=== PATIENT | male | born 1960 | race African-American/Black ===

== ENCOUNTER 2024-11-28 15:25 | Inpatient (IN) ==
--- NOTE | 2024-11-28 15:55 | Emergency Department Note ---
Impression & Plan Mass of upper lobe of lung, Superior vena cava compression syndrome, Pneumonia ED Provider Note NAME: GEE [id number] KARMA AGE: 63 SEX: M : 1960 ARRIVES VIA: Ambulance INFORMANT: Patient, ED PROVIDER(S): Frank Matthews DO CHIEF COMPLAINT: Flank pain HPI: The patient is a 63-year-old male who has a history of hypertension presented to the emergency department for an evaluation of back pain. The patient states that he was felt to be suffering from a kidney issue. He has a history of a kidney infection in the past. The patient denies having any chest pain. He has had a cough recently. He denies having any leg pain but has noticed some leg swelling. The patient stopped taking his blood pressure medication recently. He has been taking aspirin for the pain. He denies having any fever. ROS: See above HPI for pertinent positives & negatives. A total of 10 systems reviewed and were otherwise negative. PAST MEDICAL HISTORY: See Below PAST SURGICAL HISTORY: See Below FAMILY HISTORY: See Below SOCIAL HISTORY: See Below HOME MEDICATIONS: See Below ALLERGIES: See Below VITALS: See Below PHYSICAL EXAMINATION: GENERAL: The patient is awake and alert. The patient is very anxious. EYES: The conjunctivae are clear. The pupils are round and reactive. EARS, NOSE, MOUTH AND THROAT: The nose is without any evidence of any deformity. NECK: The neck is nontender and supple. RESPIRATORY: Diminished breath sounds are noted in the right lung field. There is no tachypnea. There were scattered rhonchi noted throughout. CARDIOVASCULAR: Regular rate and rhythm noted there no murmurs rubs or gallops normal S1 normal S2. GASTROINTESTINAL: The abdomen is distended. There is no specific tenderness guarding or rigidity. BACK: Right CVA tenderness was noted to percussion. Range of motion appears intact. MUSCULOSKELETAL/EXTREMITIES: There is no evidence of gross deformity full range of motion is noted in the hips and shoulders. SKIN: There is no obvious evidence of any rash. There are no petechiae, pallor or cyanosis noted. NEUROLOGIC: Patient is awake alert and oriented x3 strength is symmetric patellar reflexes are 2+ bilaterally MEDICAL DECISION MAKING: The patient is a 63-year-old male who presented to the emergency department for an evaluation of back pain cough and difficulty breathing. The patient was very uncomfortable and appeared to be planing of severe flank pain. Initially I thought this could be secondary to a kidney stone. The patient's chest x-ray did appear to be consistent with a large upper lobe mass. It is possible that this represents a pneumonia. He stated that he one-time was positive for tuberculosis and was treated with a medication regimen over 6 months. For this reason he was placed in respiratory isolation until further laboratory and radiographic studies were obtained. The patient was treated with antihypertensives. He was treated with IV antibiotics. I discussed the patient's laboratory and radiographic studies with him. Ultimately he does appear to have a large mass in his right upper lobe. This is likely consistent with a primary lung cancer. He was also found to have signs of metastasis through the abdomen and in the flank and this is most likely why he has a back pain. I discussed his condition with the [facility]call [facility]. They have agreed to evaluate the patient in the emergency department. Triage Nursing notes reviewed. Prior medical records reviewed Vital Signs: reviewed and remarkable for elevated blood pressure and tachycardia. Differential diagnosis: Renal colic, UTI, appendicitis, diverticulitis, mesenteric ischemia, aortic pathology, infections, inflammatory bowel disease, PUD, biliary pathology, as well as other pathologies. ER treatment provided: See below Diagnostics interpreted by me: ECG: EKG was obtained in the emergency department. My interpretation is sinus tachycardia at 127 bpm. There was no PVCs noted. There is no acute ST segment abnormalities noted. Cardiac Monitoring: An order was placed for continuous cardiac monitoring. The monitor shows a rate of 124 bpm with sinus tachycardia. Laboratory studies: As stated above and show below. Imaging studies: See below. Radiographic imaging was reviewed by myself Consultation(s): I discussed this case with Dr. Shields who is on-call for the [facility]. I have personally spent greater than 45 minutes of critical care time in the direct management of this patient. This includes bedside care, interpretation of diagnostic studies, and testing, discussion with consultants, patient, and family members, and other required patient management activities. This 45 minutes is in excess of all separately billable procedures. Past Med/Surg History Problem List (Updated 11/28/24 @ 18:10 by Frank Matthews DO) Pneumonia (Acute) Superior vena cava compression syndrome (Acute) Mass of upper lobe of lung (Acute) Medical History Hypertension Social History Smoking Status: Never smoker Feels Safe at Home: Yes Allergies Allergies Allergy/AdvReac Type Severity Reaction Status Date / Time No Known Allergies Allergy Unverified 11/28/24 18:08 Home Meds Home Medications Medication Instructions Recorded Confirmed Vasotec 30 mg DAILY 11/28/24 11/28/24 atorvastatin 20 mg PO DAILY 11/28/24 11/28/24 labetalol 300 mg PO BID 11/28/24 11/28/24 Results & Data (ED) Vital Signs Vital Signs - 24 hr 11/28/24 15:40 11/28/24 15:44 11/28/24 15:54 Temperature 37 C Temperature Source Oral Pulse Rate 127 H 124 H Pulse Rate from SpO2 Sensor 123 H Respiratory Rate 22 Respiratory Effort / Characteristics Splinting (from pain) Blood Pressure 210/106 H Blood Pressure Mean 140 Pulse Oximetry 97 98 Oxygen Delivery Method Room Air Sepsis Recent Fever Within 48 Hours No Sepsis New/Unexplained Change in Mental Status No Sepsis Action Taken by Nursing No Action Required 11/28/24 16:03 11/28/24 16:27 11/28/24 16:50 Temperature Temperature Source Pulse Rate Pulse Rate from SpO2 Sensor 122 H 119 H Respiratory Rate Respiratory Effort / Characteristics Blood Pressure 163/137 H Blood Pressure Mean 149 Pulse Oximetry 96 99 Oxygen Delivery Method Sepsis Recent Fever Within 48 Hours Sepsis New/Unexplained Change in Mental Status Sepsis Action Taken by Alf Medications Current Medication List: was personally reviewed by me Laboratory Data Attestation: I reviewed the patient's lab results. 11/28/24 16:05 11/28/24 16:12 Lab Results 11/28/24 11/28/24 Range/Units 16:05 16:12 WBC 16.13 H (4.8-10.8) K/ul RBC 2.74 L (4.70-6.10) M/uL Hgb 6.3 L* (14.0-18.0) g/dl Hct 20.3 L* (42.0-52.0) % MCV 74.1 L (80.0-100.0) fL MCH 23.0 L (25.0-34.0) pg MCHC 31.0 L (32.0-36.0) g/dL RDW Std Deviation 41.6 (36.4-46.3) fL RDW Coeff of Gerardo 15.9 H (11.5-14.5) % Plt Count 514 H (130-400) K/uL MPV 8.8 L (9.4-12.4) fL Immature Gran % (Auto) 1.2 % Neut % (Auto) 77.5 % Lymph % (Auto) 6.9 % Pickett % (Auto) 9.0 % Eos % (Auto) 5.2 % Baso % (Auto) 0.2 % Neut # (Auto) 12.50 H (1.40-6.50) K/uL Lymph # (Auto) 1.11 L (1.20-3.40) K/uL Pickett # (Auto) 1.45 H (0.11-0.59) K/uL Eos # (Auto) 0.84 H (0.00-0.50) K/uL Baso # (Auto) 0.04 (0.00-0.20) K/uL Immature Gran # (Auto) 0.19 (0.01-0.20) K/uL Absolute Nucleated RBC 0.05 (0.00-0.12) K/uL Nucleated RBC % (auto) 0.3 % Polychromasia 1+ Sodium 136 (136-145) mmol/L Potassium 3.9 (3.5-5.1) mmol/L Chloride 102 (98-107) mmol/L Carbon Dioxide 24 (21-32) mmol/L Anion Gap 10 (3-11) BUN 18 (6-23) mg/dl Creatinine 1.03 (0.6-1.4) mg/dl Est Cr Clr Drug Dosing 80.3 ml/min eGFR 82.64 BUN/Creatinine Ratio 17.5 (10-20) Glucose 110 H (70-99(Fasting)) mg/dl Calcium 8.7 (8.6-10.3) mg/dl Total Bilirubin 0.9 (0.2-1.0) mg/dl AST 19 (13-39) U/L ALT 11 (7-52) U/L Alkaline Phosphatase 89 (34-104) U/L Troponin I High Sens 15.7 (0-20) pg/ml C-Reactive Protein 19.64 H (0-0.5) mg/dl Total Protein 7.6 (6.0-8.3) gm/dl Albumin 3.3 L (3.4-5.0) gm/dl Globulin 4.3 H (2.5-4.0) gm/dl Albumin/Globulin Ratio 0.8 L (0.9-2) Lipase 20 (11-82) U/L SARS-CoV-2 (PCR) NEGATIVE (Negative) Influenza Type A (PCR) Negative (Neg) Influenza Type B (PCR) Negative (Neg) RSV (RT-PCR) Negative (Neg) Administered Medications Morphine Sulfate (Morphine Sulfate 4 Mg/Ml 1 Ml Carp\Vial) 4 mg IV Q15M PRN PRN Reason: Pain Stop: 12/12/24 15:39 Last Admin: 11/28/24 18:17 Dose: 4 mg Documented By: Admin: 11/28/24 16:10 Dose: 4 mg Documented By: KARL Discontinued Medications Ceftriaxone Sodium (Rocephin) 2,000 mg in 50 mls @ 100 mls/hr IV NOW STA Stop: 11/28/24 17:24 Last Admin: 11/28/24 18:17 Dose: 100 mls/hr Documented By: MR Ioversol (Optiray 320 125ml) 119 ml IV ONCE ONE Stop: 11/28/24 17:37 Last Admin: 11/28/24 17:36 Dose: 119 ml Documented By: ANDRA Lisinopril (Lisinopril 20 Mg Tab) 20 mg PO NOW STA Stop: 11/28/24 16:56 Last Admin: 11/28/24 18:21 Dose: 20 mg Documented By: MR Ondansetron HCl (Ondansetron Inj 2 Mg/Ml 2 Ml Vial) 4 mg IV NOW STA Stop: 11/28/24 15:41 Last Admin: 11/28/24 16:10 Dose: 4 mg Documented By: KARL Imaging Data Attestation: I personally reviewed and interpreted this imaging study as follows: My Impression: 1 view chest x-ray was obtained in the emergency department. My interpretation is large right upper lobe mass/infiltrate, final report below. Radiologist's Impression: Chest X-Ray 11/28/24 15:40 EXAM: Radiograph of the Chest 1 View INDICATION: Flank pain. TECHNIQUE: Frontal view of the chest. COMPARISON: No relevant prior studies available. FINDINGS: Lungs and pleural spaces: There is masslike opacification of much of the right upper lobe and possibly also the superior segment of the right lower lobe. There is likely a trace right pleural effusion. The left lung is clear. No pneumothorax. Heart: Prominent cardiac shadow accentuated by technique. Mediastinum: Normal contour. Bones/joints: No fracture, erosion or dislocation. Soft tissues: No abnormality noted. No radiopaque foreign body noted. Upper abdomen: No abnormality noted. IMPRESSION: Considerable masslike opacification of the right upper and superior segment of the right lower lobes. Consider central obstruction. IV contrast CT chest would best assess. ACT 112: Negative or not required by law. Electronically signed by Estefania Landeros 11-28-2024 5:04 PM Abdomen/Pelvis CT 11/28/24 16:42 EXAM: CT Abdomen and Pelvis With Intravenous Contrast INDICATION: Chest mass. TECHNIQUE: Axial computed tomography images of the abdomen and pelvis with intravenous contrast. Sagittal and coronal reformatted images were created and reviewed. This CT exam was performed using one or more of the following dose reduction techniques: automated exposure control, adjustment of the mA and/or kV according to patient size, and/or use of iterative reconstruction technique. CONTRAST: 119ml of Optiray 320 was administered intravenously. COMPARISON: No relevant prior studies available. FINDINGS: Limitations: None. Lung bases: No abnormality noted. Pleural space: No visualized pleural effusion or pneumothorax. Heart: No abnormality noted. Mediastinum: No abnormality noted. ABDOMEN: Liver: No abnormality noted. Gallbladder and bile ducts: No calcified stones or surrounding fluid. Pancreas: Homogeneous enhancement. No mass, inflammation or ductal dilation. Spleen: No significant abnormality noted. Adrenals: The left adrenal gland appears normal. Kidneys and ureters: There is mild right perinephric and urothelial thickening and inflammation. No stones. No mass. Stomach and bowel: Multiple small bowel resection staple lines noted. Prominent fluid noted throughout the bowel. No obstruction or localized inflammatory change. PELVIS: Appendix: No findings to suggest acute appendicitis. Bladder: No filling defects to suggest mass or large stone. No inflammation. Reproductive: No abnormalities noted. ABDOMEN and PELVIS: Intraperitoneal space: No free air. No significant fluid collection. Bones/joints: There is a metallic foreign body along the inner surface of the right iliac bone. Soft tissues: No significant abnormality noted. Vasculature: There is a multiloculated inflamed mass in the right upper quadrant with the epicenter at the right adrenal gland. The mass measures 11.3 x 6.8 x 9.1 cm. The inferior vena cava is displaced anteriorly but does not appear occluded. There is mild atherosclerosis of the aorta and iliac arteries. No aneurysm or dissection. Lymph nodes: There is an enlarged gastrohepatic ligament node measuring 1.7 cm short axis dimension. Slightly smaller node along the greater curvature of the stomach series 6 image 98. There are multiple enlarged preaortic and precaval nodes measuring up to 1.7 cm short axis dimension. IMPRESSION: 1. Large mass centered at the right adrenal gland likely is a metastatic lesion to the adrenal gland. There is displacement of the IVC. 2. There is mild inflammation of the right kidney and collecting system. Correlate with urinalysis for associated pyelonephritis. Impression metastatic nodes about the stomach and in the retroperitoneum. ACT 112: Negative or not required by law. Electronically signed by Estefania Landeros 11-28-2024 6:05 PM Chest CTA 11/28/24 16:42 EXAM: CT Angiography Chest With Intravenous Contrast INDICATION: Cough. Question TB. TECHNIQUE: Axial computed tomographic angiography images of the chest with intravenous contrast. Sagittal and coronal reformatted images were created and reviewed. This CT exam was performed using one or more of the following dose reduction techniques: automated exposure control, adjustment of the mA and/or kV according to patient size, and/or use of iterative reconstruction technique. MIP reconstructed images were created and reviewed. CONTRAST: 119ml of Optiray 320 was administered intravenously. COMPARISON: No relevant prior studies available. FINDINGS: Pulmonary arteries: Suboptimal pulmonary Da enhancement. There is no saddle or central pulmonary embolus. Aorta: Dense coronary calcification noted. There is scattered atherosclerotic calcification in the aorta. No aneurysm or dissection. Lungs and pleural spaces: There is a large mass in the right upper lobe compressing the SVC without occluding it. The mass measures 12.4 cm AP by 10.1 cm transverse by 9.6 cm long. The mass erodes the right mainstem bronchus significantly narrowing at approximately. The mass partially encases the right main pulmonary artery. There is postobstructive consolidation in the right upper, right lower and right middle lobes. No cavitation. Trace layering right pleural effusion. No pneumothorax. Heart: No abnormality noted. No cardiomegaly. No significant pericardial effusion. No evidence of RV dysfunction. Bones/joints: Degenerative changes noted throughout the spine. No acute osseous abnormality seen. Soft tissues: No abnormality noted. Lymph nodes: Abnormal soft tissue density in the precarinal and subcarinal space likely reflects confluent nodes. There are small normal size nodes lateral to the aorta and in the subcarinal and right hilar compartments. Intraperitoneal space: Partially imaged mass in the right upper quadrant. See separately dictated CT abdomen report. IMPRESSION: 1. Large mass likely neoplastic in the right upper lobe invading the right mainstem bronchus, displacing but not occluding the SVC and partially encasing and possibly invading the right pulmonary artery. 2. Postobstructive pneumonia in the right middle and lower lobes. 3. No pulmonary embolus is identified. 4. Abnormal mass in the right upper quadrant. See separately dictated CT abdomen report. ACT 112: Negative or not required by law. Electronically signed by Estefania Landeros 11-28-2024 5:59 PM Discharge Plan Visit Data Chief Complaint: Flank Pain Stated Complaint: cough ED Provider: Frank Matthews Discharge Problem: Mass of upper lobe of lung, Superior vena cava compression syndrome, Pneumonia Patient Disposition: Being Evaluated by Hospitalist Discharge Instructions Interventions: ED Discharge Assessment Last Done: 11/28/24 18:29 Discharge Problem: Pneumonia Qualifiers: Pneumonia type: due to unspecified organism Laterality: right Lung location: u pper lobe of lung Qualified Code(s): J18.9 - Pneumonia, unspecified organism
[2024-11-28] MEDS: MoRPHine SULFATE 4 MG/ML 1 ML CARP\\VIAL IV PRN ×2 (16:10→22:11)
[2024-11-28] MEDS: ONDANSETRON INJ 2 MG/ML 2 ML VIAL IV STA (16:10)
[2024-11-28 16:43] LABS: Hematocrit (blood only) 20.3 % (42.0-52.0); Hemoglobin 6.3 g/dl (14.0-18.0); Mean Corpuscular Volume 74.1 fL (80.0-100.0); Mean Platelet Volume 8.8 fL (9.4-12.4); Nucleated RBC # (auto) 0.05 K/uL (0.00-0.12); Nucleated RBC % (auto) 0.3 %; Platelet Count 514 K/uL (130-400); RDW Coefficient of Variation 15.9 % (11.5-14.5); RDW Standard Deviation 41.6 fL (36.4-46.3); Red Blood Count 2.74 M/uL (4.70-6.10); White Blood Count 16.13 K/ul (4.8-10.8)
[2024-11-28 16:56] LABS: Albumin Globulin Ratio 0.8 (0.9-2); Albumin Level 3.3 gm/dl (3.4-5.0); BUN Creatinine Ratio 17.5 (10-20); Bilirubin,Total 0.9 mg/dl (0.2-1.0); Calcium 8.7 mg/dl (8.6-10.3); Creatinine Clr Calc Pharmacy 80.3 ml/min; Globulin 4.3 gm/dl (2.5-4.0); Potassium 3.9 mmol/L (3.5-5.1); Total Protein 7.6 gm/dl (6.0-8.3)
[2024-11-28 17:03] LABS: Troponin I High Sensitivity 15.7 pg/ml (0-20)
[2024-11-28 17:05] LABS: Influenza A virus by PCR Negative (Neg); Influenza B virus by PCR Negative (Neg); RSV by PCR Negative (Neg); SARS CoV2 RNA(COVID-19) Ceph NEGATIVE (Negative)
[2024-11-28 17:06] LABS: C Reactive Protein 19.64 mg/dl (0-0.5)
--- NOTE | 2024-11-28 17:06 | XRay Report ---
EXAM: Radiograph of the Chest 1 View INDICATION: Flank pain. TECHNIQUE: Frontal view of the chest. COMPARISON: No relevant prior studies available. FINDINGS: Lungs and pleural spaces: There is masslike opacification of much of the right upper lobe and possibly also the superior segment of the right lower lobe. There is likely a trace right pleural effusion. The left lung is clear. No pneumothorax. Heart: Prominent cardiac shadow accentuated by technique. Mediastinum: Normal contour. Bones/joints: No fracture, erosion or dislocation. Soft tissues: No abnormality noted. No radiopaque foreign body noted. Upper abdomen: No abnormality noted. IMPRESSION: Considerable masslike opacification of the right upper and superior segment of the right lower lobes. Consider central obstruction. IV contrast CT chest would best assess. ACT 112: Negative or not required by law. Electronically signed by Estefania Landeros 11-28-2024 5:04 PM
[2024-11-28 17:07] LABS: Basophils # (auto) 0.04 K/uL (0.00-0.20); Basophils % (auto) 0.2 %; Eosinophils # (auto) 0.84 K/uL (0.00-0.50); Eosinophils % (auto) 5.2 %; Immature Granulocytes # (auto) 0.19 K/uL (0.01-0.20); Immature Granulocytes % (auto) 1.2 %; Lymphocytes # (auto) 1.11 K/uL (1.20-3.40); Lymphocytes % (auto) 6.9 %; Monocytes # (auto) 1.45 K/uL (0.11-0.59); Neutrophils % (auto) 77.5 %; Polychromasia 1+
[2024-11-28] MEDS: OPTIRAY 320 125ml IV ONE (17:36)
--- NOTE | 2024-11-28 17:59 | CT Scan Report ---
EXAM: CT Angiography Chest With Intravenous Contrast INDICATION: Cough. Question TB. TECHNIQUE: Axial computed tomographic angiography images of the chest with intravenous contrast. Sagittal and coronal reformatted images were created and reviewed. This CT exam was performed using one or more of the following dose reduction techniques: automated exposure control, adjustment of the mA and/or kV according to patient size, and/or use of iterative reconstruction technique. MIP reconstructed images were created and reviewed. CONTRAST: 119ml of Optiray 320 was administered intravenously. COMPARISON: No relevant prior studies available. FINDINGS: Pulmonary arteries: Suboptimal pulmonary Da enhancement. There is no saddle or central pulmonary embolus. Aorta: Dense coronary calcification noted. There is scattered atherosclerotic calcification in the aorta. No aneurysm or dissection. Lungs and pleural spaces: There is a large mass in the right upper lobe compressing the SVC without occluding it. The mass measures 12.4 cm AP by 10.1 cm transverse by 9.6 cm long. The mass erodes the right mainstem bronchus significantly narrowing at approximately. The mass partially encases the right main pulmonary artery. There is postobstructive consolidation in the right upper, right lower and right middle lobes. No cavitation. Trace layering right pleural effusion. No pneumothorax. Heart: No abnormality noted. No cardiomegaly. No significant pericardial effusion. No evidence of RV dysfunction. Bones/joints: Degenerative changes noted throughout the spine. No acute osseous abnormality seen. Soft tissues: No abnormality noted. Lymph nodes: Abnormal soft tissue density in the precarinal and subcarinal space likely reflects confluent nodes. There are small normal size nodes lateral to the aorta and in the subcarinal and right hilar compartments. Intraperitoneal space: Partially imaged mass in the right upper quadrant. See separately dictated CT abdomen report. IMPRESSION: 1. Large mass likely neoplastic in the right upper lobe invading the right mainstem bronchus, displacing but not occluding the SVC and partially encasing and possibly invading the right pulmonary artery. 2. Postobstructive pneumonia in the right middle and lower lobes. 3. No pulmonary embolus is identified. 4. Abnormal mass in the right upper quadrant. See separately dictated CT abdomen report. ACT 112: Negative or not required by law. Electronically signed by Estefania Landeros 11-28-2024 5:59 PM
--- NOTE | 2024-11-28 18:05 | CT Scan Report ---
EXAM: CT Abdomen and Pelvis With Intravenous Contrast INDICATION: Chest mass. TECHNIQUE: Axial computed tomography images of the abdomen and pelvis with intravenous contrast. Sagittal and coronal reformatted images were created and reviewed. This CT exam was performed using one or more of the following dose reduction techniques: automated exposure control, adjustment of the mA and/or kV according to patient size, and/or use of iterative reconstruction technique. CONTRAST: 119ml of Optiray 320 was administered intravenously. COMPARISON: No relevant prior studies available. FINDINGS: Limitations: None. Lung bases: No abnormality noted. Pleural space: No visualized pleural effusion or pneumothorax. Heart: No abnormality noted. Mediastinum: No abnormality noted. ABDOMEN: Liver: No abnormality noted. Gallbladder and bile ducts: No calcified stones or surrounding fluid. Pancreas: Homogeneous enhancement. No mass, inflammation or ductal dilation. Spleen: No significant abnormality noted. Adrenals: The left adrenal gland appears normal. Kidneys and ureters: There is mild right perinephric and urothelial thickening and inflammation. No stones. No mass. Stomach and bowel: Multiple small bowel resection staple lines noted. Prominent fluid noted throughout the bowel. No obstruction or localized inflammatory change. PELVIS: Appendix: No findings to suggest acute appendicitis. Bladder: No filling defects to suggest mass or large stone. No inflammation. Reproductive: No abnormalities noted. ABDOMEN and PELVIS: Intraperitoneal space: No free air. No significant fluid collection. Bones/joints: There is a metallic foreign body along the inner surface of the right iliac bone. Soft tissues: No significant abnormality noted. Vasculature: There is a multiloculated inflamed mass in the right upper quadrant with the epicenter at the right adrenal gland. The mass measures 11.3 x 6.8 x 9.1 cm. The inferior vena cava is displaced anteriorly but does not appear occluded. There is mild atherosclerosis of the aorta and iliac arteries. No aneurysm or dissection. Lymph nodes: There is an enlarged gastrohepatic ligament node measuring 1.7 cm short axis dimension. Slightly smaller node along the greater curvature of the stomach series 6 image 98. There are multiple enlarged preaortic and precaval nodes measuring up to 1.7 cm short axis dimension. IMPRESSION: 1. Large mass centered at the right adrenal gland likely is a metastatic lesion to the adrenal gland. There is displacement of the IVC. 2. There is mild inflammation of the right kidney and collecting system. Correlate with urinalysis for associated pyelonephritis. Impression metastatic nodes about the stomach and in the retroperitoneum. ACT 112: Negative or not required by law. Electronically signed by Estefania Landeros 11-28-2024 6:05 PM
[2024-11-28] MEDS ORDERED: hydrALAZINE HCL 20 MG/ML VIAL IV PRN ×2 (18:17→18:28)
[2024-11-28] MEDS: cefTRIAXone SODIUM 2,000 MG/50 ML BAG IV STA (18:17)
[2024-11-28] MEDS: lisinopril 20 MG TAB PO STA (18:21)
[2024-11-28] MEDS ORDERED: SODIUM CHLORIDE 0.9% 100 ML IV PRN (18:28)
[2024-11-28] MEDS ORDERED: SODIUM CHLORIDE 0.9% 50 ML IV PRN (18:28)
[2024-11-28 18:54] LABS: Appearance Urine Clear (Clear); Bacteria Urine Automated None Seen (None Seen); Bilirubin Urine Negative (Negative); Blood Urine Negative (Negative); Cast Urine Automated 0-2 /lpf (0-2); Color Urine Yellow; Epithelial Cell Urine Auto 0-2 /hpf (0-2); Glucose Urine UA Negative (Negative); Ketones Urine Negative (Negative); Leukocyte Esterase Urine Negative (Negative); Nitrite Urine Negative (Negative); Protein Urine 1+ (Negative); RBC Urine Automated 0-2 /hpf (0-2); Specific Gravity Urine 1.028 (1.000-1.030); Urobilinogen Urine Negative (Negative); WBC Urine Automated 0-5 /hpf (0-5); pH Urine 6.5 (4.5-7.5)
[2024-11-28 19:24] LABS: Ferritin 561.4 ng/ml (8-388)
[2024-11-28 19:30] LABS: Folate (Folic Acid),Ser orPlas 19.94 ng/ml (>5.38)
--- NOTE | 2024-11-28 19:40 | History & Physical Report ---
Date of Service November 28, 2024 Assessment & Plan (1) Mass of upper lobe of lung: (2) Pneumonia: (3) Anemia: Plan: 63-year-old male presents with history of hypertension, dyslipidemia, HCV, tuberculosis, presenting with hemoptysis. For the past week. 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 Large mass likely neoplastic in the right upper lobe invading the right mainstem bronchus, displacing but not occluding the SVC and partially encasing and possibly invading the right pulmonary artery. 2. Postobstructive pneumonia in the right middle and lower lobes. 3. No pulmonary embolus is identified. 4. Abnormal mass in the right upper quadrant. See separately dictated CT abdomen report. CT abdomen/pelvis: IMPRESSION: 1. Large mass centered at the right adrenal gland likely is a metastatic lesion to the adrenal gland. There is displacement of the IVC. 2. There is mild inflammation of the right kidney and collecting system. Correlate with urinalysis for associated pyelonephritis. Impression metastatic nodes about the stomach and in the retroperitoneum. Hemoglobin 6.3 1 unit packed RBCs ordered Anemia panel Cefepime IV Sputum culture sputum AFB Airborne isolation Pulmonary service consulted Hypertension Uncontrolled Hydralazine IV as needed Continue usual Vasotec and labetalol Other chronic medical problems HCV Dyslipidemia DVT prophylaxis-SCDs Full code Inmate of correctional facility Admission and Anticipated Discharge Date Admission Date: November 28, 2024 History of Present Illness Chief Complaint: Hemoptysis Primary Care Provider: JAMES Sam 63-year-old male presents with history of hypertension, dyslipidemia, HCV, tuberculosis, presenting with hemoptysis. For the past week. History obtained from patient and also nurse from [facility]. Patient has been having primary history of hemoptysis as well as cough, right upper back and right lower back pain. Denies fevers or chills, chest pain, shortness of breath. He also reports a weakness and feeling tired. At the ER, patient blood pressure was in the systolic 200s Heart rate 120s CT chest showing a significant right upper lobe mass with postobstructive pneumonia CT abdomen pelvis showing large mass centered in the right adrenal gland likely metastatic lesion. Mild inflammation of the right kidney. On exam patient seen sitting up in bed, comfortable, not in distress. Denies headache, chest pain, shortness of breath Allergies Allergy/AdvReac Type Severity Reaction Status Date / Time No Known Allergies Allergy Unverified 11/28/24 18:08 Home Medications Medication Instructions Recorded Confirmed Type Vasotec 30 mg DAILY 11/28/24 11/28/24 History atorvastatin 20 mg PO DAILY 11/28/24 11/28/24 History labetalol 300 mg PO BID 11/28/24 11/28/24 History Past Med/Surg History Problem List (Updated 11/28/24 @ 19:35 by Farshad Shields MD) Anemia Pneumonia (Acute) Superior vena cava compression syndrome (Acute) Mass of upper lobe of lung (Acute) Medical History Hypertension Social History Smoking Status: Never smoker Feels Safe at Home: Yes Review of Systems Review of Systems: all noted and negative except for above Physical Exam Physical Exam: General- oriented x 3, not in distress, speaks in sentences with no effort or accessory muscle use Head- atraumatic Eyes- PERRL, EOMI, anicteric ENT- oropharynx clear Neck- supple, no JVD, no adenopathy, no thyromegaly; carotids +2/2, no bruits appreciated Lungs- Decreased breath sounds right lung lynn, scattered mild wheeze bilaterally Heart- normal rate, regular rhythm; no murmur, no gallop, no rub appreciated Abdomen- normal bowel sounds, nondistended, soft, nontender, no masses or hepatosplenomegaly Extremities- no pretibial edema, no calf tenderness; peripheral pulses intact Neuro- alert, oriented x 3; CN 2-12 grossly intact; motor 5/5 bilaterally;sensation 100% on all extremities; no other gross focal neurologic deficits Skin- warm & dry Results & Data Results & Data Vital Signs (Past 12 Hours) Vital Signs Temp Pulse Resp BP Pulse Ox O2 Del Method 11/28/24 18:29 Room Air 11/28/24 18:14 98 Room Air 11/28/24 16:50 163/137 H 11/28/24 16:27 99 11/28/24 16:03 96 11/28/24 15:54 98 11/28/24 15:44 124 H 11/28/24 15:40 37 C 127 H 22 210/106 H 97 Room Air all noted and reviewed including below Code Status & VTE Plan VTE Prophylaxis Plan VTE Prophylaxis will be ordered: Yes (2) Pneumonia Laterality: right Lung location: upper lobe of lung Pneumonia type: due to unspecified organism Qualified Code(s): J18.9 - Pneumonia, unspecified organism
[2024-11-28] MEDS: LABETALOL HCL 300 MG TAB PO SCH (20:23)
[2024-11-28] MEDS: CEFEPIME 2000MG 2,000 MG/20 ML SYR IV SCH (20:26)
[2024-11-28] MEDS: diphenhydrAMINE Capsule 25 MG CAP PO ONE (20:57)
[2024-11-28] MEDS: ACETAMINOPHEN 325 MG TAB PO ONE (20:57)
[2024-11-28] MEDS: ACETAMINOPHEN 325 MG TAB ONE (22:11)
[2024-11-28] MEDS: oxyCODONE HCL IR 5 MG TAB (IMMEDIATE RELEASE) PO PRN (23:00)
[2024-11-28 23:03] LABS: Hematocrit (blood only) 23.4 % (42.0-52.0); Hemoglobin 7.3 g/dl (14.0-18.0)
[2024-11-28] MEDS: ACETAMINOPHEN 325 MG TAB PO STA (23:06)
--- NOTE | 2024-11-28 23:54 | Communication Note ---
Date of Service: November 28, 2024 Patient persistently febrile despite Tylenol Rx well BT ongoing. AP Persistent fever Sepsis secondary to postobstructive pneumonia Possible transfusion reaction Add doxycycline to cefepime Hold BT Transfusion protocol now
[2024-11-29] MEDS: DOXYCYCLINE HYCLATE 100 MG in DEXTROSE 5% MINI-B 100 ML IV SCH (00:11)
[2024-11-29] MEDS: KETOROLAC TROMETHAMINE 15 MG/ML VIAL IV ONE (01:21)
[2024-11-29 01:28] LABS: Adenovirus PCR Not Detected (NotDetected); Bordetella parapertussis PCR Not Detected (NotDetected); Bordetella pertussis PCR Not Detected (NotDetected); Chlamydia pneumoniae PCR Not Detected (NotDetected); Coronavirus 229E PCR Not Detected (NotDetected); Coronavirus CoV-2 (COVID19)PCR Not Detected (NotDetected); Coronavirus HKU1 PCR Not Detected (NotDetected); Coronavirus NL63 PCR Not Detected (NotDetected); Coronavirus OC43PCR Not Detected (NotDetected); Human Metapneumovirus PCR Not Detected (NotDetected); Influenza A PCR Not Detected (NotDetected); Influenza B PCR Not Detected (NotDetected); Mycoplasma pneumoniae PCR Not Detected (NotDetected); Parainfluenza Virus 1 PCR Not Detected (NotDetected); Parainfluenza Virus 2 PCR Not Detected (NotDetected); Parainfluenza Virus 3 PCR Not Detected (NotDetected); Parainfluenza Virus 4 PCR Not Detected (NotDetected); Respiratory Syncytial VirusPCR Not Detected (NotDetected); Rhinovirus/Enterovirus PCR Not Detected (NotDetected)
[2024-11-29] MEDS ORDERED: LORazepam 0.5 MG TAB PO PRN (02:09)
[2024-11-29] MEDS: hydrOXYzine HCl 25 MG TAB PO STA (02:28)
[2024-11-29] MEDS: NSS + 20MEQ KCL 20 MEQ/1,000 ML BAG IV ONE (02:28)
[2024-11-29 04:03] LABS: Blood Urine Negative (Negative); RBC Urine Automated 0-2 /hpf (0-2)
[2024-11-29] MEDS: MAGNESIUM SULFATE / D5W 1 GM/100 ML BAG IV ONE (04:25)
[2024-11-29 07:16] LABS: Hypochromasia Present; Microcytosis Present
[2024-11-29] MEDS: oxyCODONE HCL IR 5 MG TAB (IMMEDIATE RELEASE) PO PRN (07:45)
[2024-11-29] MEDS: ATORVASTATIN 20 MG TAB PO SCH (07:47)
[2024-11-29] MEDS: ENALAPRIL MALEATE 10 MG TAB PO SCH (07:48)
--- NOTE | 2024-11-29 07:54 | Hospitalist Progress Note ---
Date of Service November 29, 2024 Assessment & Plan (1) Mass of upper lobe of lung: (2) Pneumonia: (3) Anemia: Plan: Patient is a 63 yr male presents with history of hypertension, dyslipidemia, HCV, tuberculosis, presenting with hemoptysis. For the past week. Right upper lobe mass with right main endobronchial lesion Likely metastatic disease to Adrenals Superior vena cava compression syndrome secondary to above Postobstructive pneumonia H/O tobacco use, family history of cancer (Mother--breast Cancer) H/O Tuberculosis--completed treatment per patient Presents with ongoing cough, hemoptysis, weight loss --S/P flexible fiberoptic bronchoscopy with bronchial wash, transbronchial biopsies, endobronchial biopsies, FNA and EBUS on 11/29/24 --Nasal MRSA negative --Procalcitonin 0.2 --BioFire negative --CT chest: Large mass likely neoplastic in the right upper lobe invading the right mainstem bronchus, displacing but not occluding the SVC and partially encasing and possibly invading the right pulmonary artery. Postobstructive pneumonia in the right middle and lower lobes. No pulmonary embolus is identified. Abnormal mass in the right upper quadrant. See separately dictated CT abdomen report. --CT ABD/Pelvis:Large mass centered at the right adrenal gland likely is a metastatic lesion to the adrenal gland. There is displacement of the IVC. There is mild inflammation of the right kidney and collecting system. Correlate with urinalysis for associated pyelonephritis. Impression metastatic nodes about the stomach and in the retroperitoneum. --MRI Brain:pending -- Bronchial culture pending -- Blood cultures pending --Sputum for AFB pending --QuantiFERON-TB gold pending --Continue airborne precautions until tuberculosis ruled out --Continue cefepime, doxycycline --Continue IV fluids --Appreciate pulmonology input: Recommends oncology and MRI brain -- Oncology consulted Anemia of chronic disease Iron deficiency anemia Reviewed iron panel: Low iron, transferrin levels. Ferritin likely elevated due to malignancy/infection Normal B12, folate levels Fecal occult pending --S/P 1 unit PRBC -- Also received IV Venofer Monitor H&H and transfuse as needed Avoid anticoagulation due to hemoptysis Hypertension Uncontrolled likely situational Continue home labetalol, enalapril IV hydralazine as needed Monitor blood pressure Other chronic medical problems: HCV Dyslipidemia--currently on statin DVT Px: SCDs Re: Anemia, hemoptysis CODE STATUS Full code Disposition Inmate of correctional facility Admission and Anticipated Discharge Date Admission Date: November 28, 2024 Subjective Patient is seen and examined at bedside States having intermittent cough associated with occasional hemoptysis Currently denies any significant dyspnea Admits to have weight loss of about 8 pounds in 1 month Denies any chest pain, nausea, vomiting, abdominal pain Detention guards at bedside Review of Systems Review of Systems: All systems reviewed & are unremarkable except as noted in Subjective Physical Exam Physical Exam: Physical Exam: Vitals signs as noted above General Appearance:Moderately built and nourished, no apparent distress Head: normocephalic, Atraumatic Eyes: normal inspection, EOMI Neck: supple, Trachea midline Respiratory/Chest: Diminished breath sounds,minimal basal crackles, No accessory muscle use Cardiovascular: S1, S2, No murmur Abdomen/GI:Soft, Non tender, Bowel sounds present Extremities/Musculoskeletal:normal inspection, 1+edema Neurologic/Psych:AAOX3, grossly no focal neurological deficits Skin: normal color, warm Results & Data Results & Data Vital Signs (Past 12 Hours) Vital Signs Temp Pulse Pulse Resp BP BP Pulse Ox 11/29/24 07:00 36.4 C L 96 H 20 128/73 97 11/29/24 02:15 36.7 C 87 18 118/79 95 11/29/24 00:15 38.3 C H 109 H 20 149/79 H 95 11/28/24 23:45 39 C H 11/28/24 23:00 11/28/24 23:00 39 C H 11/28/24 22:45 36.4 C L 125 H 24 168/89 H 93 11/28/24 22:36 38.4 C H 11/28/24 22:13 124 H 11/28/24 22:02 38 C H 127 H 22 166/87 H 98 11/28/24 21:45 38.0 C H 127 H 22 166/87 H 98 11/28/24 21:15 37.2 C 124 H 18 162/107 H 94 11/28/24 21:00 37.5 C 125 H 22 191/116 H 95 11/28/24 20:46 37.5 C 124 H 20 162/98 H 96 11/28/24 20:41 37.5 C 124 H 20 142/89 H 96 11/28/24 20:30 125 H 22 184/136 H 100 O2 Del Method 11/29/24 07:00 Room Air 11/29/24 02:15 Room Air 11/29/24 00:15 Room Air 11/28/24 23:45 11/28/24 23:00 Room Air 11/28/24 23:00 11/28/24 22:45 11/28/24 22:36 11/28/24 22:13 11/28/24 22:02 11/28/24 21:45 11/28/24 21:15 11/28/24 21:00 11/28/24 20:46 Room Air 11/28/24 20:41 11/28/24 20:30 Room Air Laboratory Results Short CBC 11/28/24 11/28/24 11/29/24 Range/Units 16:05 22:21 07:43 WBC 16.13 H 14.02 H (4.8-10.8) K/ul Hgb 6.3 L* 7.3 L 7.1 L (14.0-18.0) g/dl Hct 20.3 L* 23.4 L 23.3 L (42.0-52.0) % Plt Count 514 H 494 H (130-400) K/uL BMP 11/28/24 11/29/24 16:12 07:43 Sodium 136 135 L Potassium 3.9 3.8 Chloride 102 101 Carbon Dioxide 24 24 BUN 18 30 H Creatinine 1.03 1.14 Glucose 110 H 109 H Calcium 8.7 8.6 Liver Function 11/28/24 Range/Units 16:12 Total Bilirubin 0.9 (0.2-1.0) mg/dl AST 19 (13-39) U/L ALT 11 (7-52) U/L Alkaline Phosphatase 89 (34-104) U/L Albumin 3.3 L (3.4-5.0) gm/dl Urine 11/28/24 Range/Units 18:18 Urine Color Yellow Urine Appearance Clear (Clear) Urine pH 6.5 (4.5-7.5) Ur Specific [place] 1.028 (1.000-1.030) Urine Protein 1+ H (Negative) Urine Glucose (UA) Negative (Negative) (2) Pneumonia Laterality: right Lung location: upper lobe of lung Pneumonia type: due to unspecified organism Qualified Code(s): J18.9 - Pneumonia, unspecified organism
--- NOTE | 2024-11-29 08:18 | Pulmonary Consultation ---
Date of Consultation November 29, 2024 Assessment & Plan (1) Mass of upper lobe of lung: (2) Anemia: (3) Superior vena cava compression syndrome: Plan CT chest 11/28/2024 personally reviewed: Mass in the right upper lobe 12.4 cm x 10.1 cm x 9.6 cm Endobronchial lesion appreciated in the RBI Groundglass opacities surrounding the mass likely lymphangitic spread Significant mediastinal lymphadenopathy at station 4R and station 7 -- Pulmonary mass right upper lobe 12.4 cm x 10.1 cm x 9.6 cm Likely malignant Given the endobronchial lesion possibility of squamous cell carcinoma is high Respiratory BioFire negative for everything on 11/28/2024 Nasal MRSA negative Procalcitonin 0.2 Patient does have right-sided suprarenal mass but it seems to be cystic, I discussed the case with IR and they are not confident that they will get a good yield Bronchoscopy with EBUS will be pursued --Postobstructive pneumonia Febrile Continue with antibiotics --Hemoptysis Likely secondary to above Antitussive medication [id number] --History of tuberculosis S/p treatment for 6 months Plan: Keep the patient n.p.o. Plan would be bronchoscopy with EBUS in the OR Hold anticoagulation Platelets, AST/ALT as well as albumin within normal limit I doubt patient has active tuberculosis, I think we are dealing with lung cancer here. Okay to continue with airborne for the time being. Risk and benefit of the procedure explained to the patient in depth. Patient understands and wants to go ahead with the procedures Consent signed, witnessed and put in the chart Please note the above document was generated using voice recognition software. It may contain grammatical, syntax or spelling errors.Any formal questions or concerns about the content, text or information contained within the body of this dictation should be directly addressed to the provider for clarification. History of Present Illness Attending Physician: Onofre Corral MD History of Present Illness 63-year-old male admitted to hospital for hemoptysis Past medical history: Hypertension, dyslipidemia, hepatitis C, history of tuberculosis s/p treatment for 6 months Pulmonary consulted for lung mass and hemoptysis Assisted guards where in the room at the time of examination At the time of examination patient was not in any respiratory distress His saturation was 96-97% on room air, respiration was in the mid teens, systolic blood pressure in the 120s Patient has been complaining of coughing up blood in the last couple of days. He has lost approximately 8-10 pounds in the last month or 2 Does complain of pleuritic chest pain on the right side. Denies any nausea vomiting Appetite is poor. No headache or blurry vision No dysuria or diarrhea Please make note patient is a poor historian Social history: Approximately [id number] smoking history. 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 Denied any illicit drug use No history of lung cancer in the family Allergies Allergy/AdvReac Type Severity Reaction Status Date / Time No Known Allergies Allergy Unverified 11/28/24 18:08 Home Medications Medication Instructions Recorded Confirmed Type Vasotec 30 mg DAILY 11/28/24 11/28/24 History atorvastatin 20 mg PO DAILY 11/28/24 11/28/24 History labetalol 300 mg PO BID 11/28/24 11/28/24 History Patient History Medical History Hypertension Social History Smoking Status: Current every day smoker Tobacco Type: Cigarettes Hx Alcohol Use: No Hx Substance Use: No Preferred Language: Setswana Communication Ability: Effective [employer] Required: No Beliefs That Will Affect Care: None Current Living Situation: Other Current Living Situation Comment: Correctional Facility Other Information That Helps Us Care for You: No Feels Safe at Home: Yes Safety Concerns: Feels Safe At This Time Review of Systems 2 Review of Systems: All systems reviewed & are unremarkable except as noted in HPI & below Physical Exam 2 Physical Exam: Constitutional: No acute distress HEENT: EOMI, PERRLA Respiratory system: Decreased air entry mild bilaterally, more decreased on the right side, no wheeze, rhonchi, mild crackles bilateral lower lobes CVS: S1-S2 positive, no murmurs or gallops Abdomen: Soft, nontender, nondistended, positive bowel sounds x4 Extremities: +2 pulses bilaterally radialis/ dorsalis pedis, no cyanosis, +2 pitting edema bilateral lower extremity Neuro: Awake alert oriented x3 Psych: Normal mood and affect G/U: No Alberto Skin: no rashes, warm and dry Lymphatic: no cervical or axillary lymphadenopathy Results & Data Results & Data Vital Signs (Past 12 Hours) Vital Signs Temp Pulse Pulse Resp BP BP Pulse Ox 11/29/24 07:00 36.4 C L 96 H 20 128/73 97 11/29/24 02:15 36.7 C 87 18 118/79 95 11/29/24 00:15 38.3 C H 109 H 20 149/79 H 95 11/28/24 23:45 39 C H 11/28/24 23:00 11/28/24 23:00 39 C H 11/28/24 22:45 36.4 C L 125 H 24 168/89 H 93 11/28/24 22:36 38.4 C H 11/28/24 22:13 124 H 11/28/24 22:02 38 C H 127 H 22 166/87 H 98 11/28/24 21:45 38.0 C H 127 H 22 166/87 H 98 11/28/24 21:15 37.2 C 124 H 18 162/107 H 94 11/28/24 21:00 37.5 C 125 H 22 191/116 H 95 11/28/24 20:46 37.5 C 124 H 20 162/98 H 96 11/28/24 20:41 37.5 C 124 H 20 142/89 H 96 11/28/24 20:30 125 H 22 184/136 H 100 O2 Del Method 11/29/24 07:00 Room Air 11/29/24 02:15 Room Air 11/29/24 00:15 Room Air 11/28/24 23:45 11/28/24 23:00 Room Air 11/28/24 23:00 11/28/24 22:45 11/28/24 22:36 11/28/24 22:13 11/28/24 22:02 11/28/24 21:45 11/28/24 21:15 11/28/24 21:00 11/28/24 20:46 Room Air 11/28/24 20:41 11/28/24 20:30 Room Air Laboratory Results 11/29/24 07:43 11/29/24 07:43 PG Care Time/CCT Total # of Minutes Spent Total Time Spent with Patient: Total time spent is greater than 50% in coordination of care (as documented) at patient's floor/unit and/or counseling patient: Coding Level of Care Code 72014 INT INP/OBS CARE 3/75MIN Diagnoses Mass of upper lobe of lung R91.8 Anemia D64.9 Superior vena cava compression syndrome I87.1
[2024-11-29 08:21] LABS: Basophils # (auto) 0.04 K/uL (0.00-0.20); Basophils % (auto) 0.3 %; Eosinophils # (auto) 0.47 K/uL (0.00-0.50); Eosinophils % (auto) 3.4 %; Hematocrit (blood only) 23.3 % (42.0-52.0); Hemoglobin 7.1 g/dl (14.0-18.0); Immature Granulocytes # (auto) 0.16 K/uL (0.01-0.20); Immature Granulocytes % (auto) 1.1 %; Lymphocytes # (auto) 1.39 K/uL (1.20-3.40); Lymphocytes % (auto) 9.9 %; Mean Corpuscular Hemoglobin 23.4 pg (25.0-34.0); Mean Corpuscular Hgb Conc 30.5 g/dL (32.0-36.0); Mean Corpuscular Volume 76.6 fL (80.0-100.0); Mean Platelet Volume 8.7 fL (9.4-12.4); Monocytes # (auto) 1.66 K/uL (0.11-0.59); Monocytes % (auto) 11.8 %; Neutrophils % (auto) 73.5 %; Nucleated RBC # (auto) 0.04 K/uL (0.00-0.12); Nucleated RBC % (auto) 0.3 %; Platelet Count 494 K/uL (130-400); RDW Coefficient of Variation 16.2 % (11.5-14.5); RDW Standard Deviation 44.2 fL (36.4-46.3); Red Blood Count 3.04 M/uL (4.70-6.10); White Blood Count 14.02 K/ul (4.8-10.8)
[2024-11-29 08:37] LABS: BUN Creatinine Ratio 26.3 (10-20); Calcium 8.6 mg/dl (8.6-10.3); Creatinine Clr Calc Pharmacy 72.6 ml/min; Magnesium 2.1 mg/dl (1.7-2.4); Potassium 3.8 mmol/L (3.5-5.1)
[2024-11-29 08:39] LABS: Anisocytosis Present; Hypochromasia Present; Polychromasia 2+
[2024-11-29 08:52] LABS: Thyroid Stimulating Hormone 4.343 uIu/ml (0.300-4.500)
[2024-11-29] MEDS ORDERED: MIDAZOLAM HCL 1 MG/ML 2ML VIAL ONE (08:54)
[2024-11-29] MEDS ORDERED: fentaNYL citrate PF 100 MCG/2 ML VIAL ONE (08:54)
[2024-11-29] MEDS ORDERED: PROPOFOL IV EMULSION 10 MG/ML 20 ML VIAL IV ONE (08:54)
[2024-11-29] MEDS ORDERED: ROCURONIUM BROMIDE 10 MG/ML 5 ML VIAL IV ONE (08:54)
[2024-11-29] MEDS ORDERED: LIDOCAINE 2% 2 ML VIAL/AMP(20MG/ML) INFIL ONE (08:54)
[2024-11-29] MEDS ORDERED: INFLUENZA VACC TS2024-25(6m+)/PF (IIV3) 0.5mL Syr IM ONE (09:00)
[2024-11-29] MEDS ORDERED: ONDANSETRON INJ 2 MG/ML 2 ML VIAL ONE (09:03)
[2024-11-29] MEDS ORDERED: DEXAMETHASONE SOD INJ 4 MG/ML VIAL ONE (09:03)
--- NOTE | 2024-11-29 09:16 | Electrocardiogram Report ---
Test Reason : Blood Pressure : */* mmHG Vent. Rate : 127 BPM Atrial Rate : 127 BPM P-R Int : 148 ms QRS Dur : 72 ms QT Int : 318 ms P-R-T Axes : 77 63 77 degrees QTcB Int : 462 ms Sinus tachycardia Possible Left atrial enlargement Rightward axis Borderline ECG No previous ECGs available Confirmed by Beatriz Degroot (Jeffry) on 11/29/2024 9:16:45 AM Referred By: [facility] Confirmed By: Beatriz Degroot
--- NOTE | 2024-11-29 09:24 | Anesthesiology Consultation ---
Date of Service November 29, 2024 Assessment & Plan Chart Review Chart Review: Acceptable Risk for Surgery and Patient NOT seen in Pre Admission Testing Consults Requested none ASA ASA3 Proposed Anesthesia Anesthesia Type: General Risk / Benefits Reviewed With: PT / POA / Parent / Guardian, Accepts Plan and Informed Consent Obtained Additional Comments: s/p 1 u pRBC, Hb 7.1. Patient reports right sided flank pain that takes his breath away. Has not coughed up any clots since yesterday. NPO appropriate. History Surgery Operation Date: 11/29/24 07:00 Proposed Procedures p Bronchoscopy - Ta López MD, [facility] s Endobronchial Ultrasound - Ta López MD, [facility] Height/Weight Height: 5 ft 8 in Weight: 85.9 kg Allergies Allergy/AdvReac Type Severity Reaction Status Date / Time No Known Allergies Allergy Unverified 11/28/24 18:08 Medications Home Medications Medication Instructions Recorded Confirmed Last Taken Vasotec 30 mg DAILY 11/28/24 11/28/24 Unknown atorvastatin 20 mg PO DAILY 11/28/24 11/28/24 Unknown labetalol 300 mg PO BID 11/28/24 11/28/24 Unknown Active Medications Generic Name Dose Route Start Last Admin Trade Name Freq PRN Reason Stop Dose Admin Atorvastatin Calcium 20 mg 11/29/24 09:00 11/29/24 07:47 Atorvastatin 20 Mg Tab PO 12/29/24 08:59 20 mg DAILY YOLA Administration Enalapril Maleate 30 mg 11/29/24 09:00 11/29/24 07:48 Enalapril Maleate 10 Mg Tab PO 12/29/24 08:59 30 mg DAILY YOLA Administration Cefepime HCl 2,000 mg in 20 mls @ 5 mls/min 11/28/24 20:00 11/29/24 04:24 Maxipime 2000mg IV 12/03/24 19:59 5 mls/min Q8H YOLA Administration Protocol Doxycycline Hyclate 100 mg/ 100 mls @ 50 mls/hr 11/29/24 00:00 11/29/24 02:28 Dextrose IV 12/04/24 00:00 Infused Q12H YOLA Infusion Potassium Chloride/Sodium Chloride 20 meq in 1,000 mls @ 60 mls/hr 11/29/24 02:09 11/29/24 02:28 Normal Saline W/20 Meq Kcl IV 11/29/24 18:48 60 mls/hr .[id number] Administration Labetalol HCl 300 mg 11/28/24 21:00 11/29/24 07:47 Labetalol Hcl 300 Mg Tab PO 12/28/24 20:59 300 mg BID YOLA Administration Morphine Sulfate 3 mg 11/28/24 18:28 11/29/24 02:41 Morphine Sulfate 4 Mg/Ml 1 Ml Carp\Vial IV 12/12/24 18:27 3 mg Q4H PRN Administration severe pain Oxycodone HCl 5 - 10 mg 11/29/24 00:53 11/29/24 07:45 Oxycodone Hcl Ir 5 Mg Tab (Immediate Release) PO 12/13/24 00:52 10 mg QID PRN Administration Pain Past Medical History Medical History Hypertension Exercise / Class Metabolic Activity II 4-5 Yardwork/Stairs/Walk up hill Past Anesthesia History No Hx of Anesthesia Complications and No Family Hx of Anesthesia Complications History of PONV No Hx of PONV and No Hx of Motion Sickness Social History Smoking Status: Current every day smoker Hx Alcohol Use: No Hx Substance Use: No Review of Systems ROS Unobtainable: All systems reviewed & are unremarkable except as noted in HPI & below Physical Exam Vital Signs Last Vital Signs Temp 37.4 C 11/29/24 09:33 Pulse 91 H 11/29/24 09:33 Resp 20 11/29/24 09:33 BP 128/73 11/29/24 07:00 Pulse Ox 95 11/29/24 09:33 O2 Del Method Room Air 11/29/24 09:33 ENMT Mouth: + poor dentition (multiple missing teeth); no TMJ abnormality Thyromental Distance: > or= 3.5 Finger Breadths Mallampati Class: II Neck normal visual inspection and trachea midline; neck extension not limited Respiratory normal respiratory effort Auscultation: lungs clear to auscultation bilaterally Cardiovascular Rate/Rhythm: regular rate and regular rhythm Heart Sounds: no murmur Musculoskeletal Spine: normal cervical ROM Extremities: full ROM of extremities Neurologic moves all extremities Psychiatric Orientation: alert and oriented x 3 Testing Laboratory Results 11/29/24 07:43 11/29/24 07:43 Urine Color Yellow 11/28/24 18:18 Urine Appearance Clear (Clear) 11/28/24 18:18 Urine pH 6.5 (4.5-7.5) 11/28/24 18:18 Ur Specific [place] 1.028 (1.000-1.030) 11/28/24 18:18 Urine Protein 1+ (Negative) H 11/28/24 18:18 Urine Glucose (UA) Negative (Negative) 11/28/24 18:18 Urine Ketones Negative (Negative) 11/28/24 18:18 Urine Nitrite Negative (Negative) 11/28/24 18:18 Ur Leukocyte Esterase Negative (Negative) 11/28/24 18:18 Urine WBC (Auto) 0-5 /hpf (0-5) 11/28/24 18:18 Urine RBC (Auto) 0-2 /hpf (0-2) 11/29/24 01:25 U Hyaline Cast (Auto) 0-2 /lpf (0-2) 11/28/24 18:18 U Epithel Cells (Auto) 0-2 /hpf (0-2) 11/28/24 18:18 Urine Bacteria (Auto) None Seen (None Seen) 11/28/24 18:18 Blood Type A Positive 11/28/24 17:55 Antibody Screen NEGATIVE 11/28/24 17:55 Electrocardiogram Date: 11/28/24 Sinus tachycardia Possible Left atrial enlargement Rightward axis Borderline ECG No previous ECGs available Confirmed by Beatriz Degroot ([id number]) on 11/29/2024 9:16:45 AM
[2024-11-29] MEDS ORDERED: ePHEDrine sulfate 50 MG/ML AMP IV PRN (09:45)
[2024-11-29] MEDS ORDERED: ATROPINE SULFATE 0.1 MG/ML 10ML SYR IV PRN (09:45)
[2024-11-29] MEDS ORDERED: ONDANSETRON INJ 2 MG/ML 2 ML VIAL IV PRN (09:45)
[2024-11-29] MEDS ORDERED: fentaNYL citrate PF 100 MCG/2 ML VIAL IV PRN (09:45)
[2024-11-29] MEDS ORDERED: Nursing to Pharmacy Communication SCH (09:45)
[2024-11-29 10:21] LABS: INR 1.3 (0.9-1.1); Partial Thromboplastin Ratio 1.3; Partial Thromboplastin Time 35 Seconds (21-31)
[2024-11-29] MEDS ORDERED: PHENYLEPHRINE 100MCG/ML 5ML SYR ONE (10:36)
[2024-11-29] MEDS ORDERED: SUGAMMADEX SODIUM 200 MG/2 ML VIAL IV ONE (10:37)
--- NOTE | 2024-11-29 10:59 | Procedure Note ---
Procedure Note: Bronchoscopy Procedure PREOPERATIVE DIAGNOSIS: Right upper lobe mass with hemoptysis POSTOPERATIVE DIAGNOSIS: Right upper lobe mass with right main endobronchial lesion, preliminary diagnosis malignancy PROCEDURE PERFORMED: Flexible fiberoptic bronchoscopy with bronchial wash, transbronchial biopsies, endobronchial biopsies, FNA and EBUS COMPLICATIONS: None. INDICATION: Rule out malignancy PROCEDURE: After obtaining an informed consent, the patient was brought to the OR the patient had appropriate oxygen, blood pressure, heart rate, and respiratory rate monitoring applied and monitored continuously throughout the procedure. Sedation was managed by anesthesia, please refer to their notes Flexible bronchoscope was advanced through the ETT. There was blood clots appreciated around the ET tube as well as in the polly posterior to the ET tube which was suctioned out. The trachea appeared normal.The bronchoscope was then advanced through the polly, which was widened. There was a large fungating mass appreciated coming from left upper lobe into the right main bronchus. It was obstructing the right main greater than 90%. I was able to advance the scope through the mass, the right middle lobe and the right lower lobe had some bloody secretion which was suctioned out. The fungating mass was going into the right upper lobe, I was not able to advance my scope into the right upper lobe. The mass was oozing bright red blood. The bronchoscope was subsequently withdrawn and advanced into the left mainstem. Again, each segment and subsegment was well visualized. No specific masses or other lesions were identified throughout the tracheobronchial tree on the left. There was minimal amount of bloody secretion likely coming from the right side which was suctioned out. The bronchoscope was then re-advanced into the right upper lobe fungating mass and multiple FNAs were made along with endobronchial biopsies. Preliminary diagnosis with malignancy Minimal hemorrhage was identified and suctioned clear without difficulty. Cold saline was utilized to achive adequate hemostasis. The bronchoscope was then wedged in the right main just proximal to the mass and bronchoalveolar lavage samples were obtained. 80 ml of saline was instilled and 40 ml of fluid was aspirated back.The bronchoscope was withdrawn and the area was suctioned clear. Flexible bronchoscope was withdrawn and EBUS was introduced Station 4R, station 7 as well as station 4L were visualized Station 4R: 4 passes, adequate, malignant cells visualized The bronchoscope was then withdrawn to the mainstem. The area was suctioned clear. The bronchoscope was then withdrawn. The patient tolerated the procedure well without evidence of desaturation or complications. Bronchoalveolar lavage samples were sent for cell count, Gram stain and bacterial culture, AFB culture and smear, fungal culture and smear and cytology. FNA and endobronchial biopsies were sent forpathology. Recommendations: Follow-up micro, cytology and pathology Follow-up chest x-ray Please note the above document was generated using voice recognition software. It may contain grammatical, syntax or spelling errors.Any formal questions or concerns about the content, text or information contained within the body of this dictation should be directly addressed to the provider for clarification. [facility] [place] Codes (Charges) Pulmonary/Thoracic Procedure 1: Pulmonary and Thoracic: 03882 Bronchoscopy, w/EBUS 1 or 2 mediastinal Procedure 2: Pulmonary and Thoracic: 07227 Dx bronchoscopy/wash Procedure 3: Pulmonary and Thoracic: 89375 Bronchoscopy w/ needle bx Procedure 4: Pulmonary and Thoracic: 00724 Bronchoscopy w bronchial or endobronchial bx
--- NOTE | 2024-11-29 11:40 | Anesthesiology Progress Note ---
Date of Service November 29, 2024 Anesthesia Post Procedure Vital Signs Vital Signs: Temp Pulse Pulse Pulse Resp BP BP 11/29/24 11:34 36.4 C L 84 82 14 109/59 L 11/29/24 11:25 84 15 112/61 11/29/24 11:15 80 15 103/58 L 11/29/24 11:08 36.4 C L 80 17 123/72 11/29/24 09:33 37.4 C 91 H 20 11/29/24 08:00 11/29/24 07:00 36.4 C L 96 H 20 128/73 11/29/24 02:15 36.7 C 87 18 118/79 11/29/24 00:15 38.3 C H 109 H 20 149/79 H 11/28/24 23:45 39 C H 11/28/24 23:00 11/28/24 23:00 39 C H 11/28/24 22:45 36.4 C L 125 H 24 168/89 H 11/28/24 22:36 38.4 C H 11/28/24 22:13 124 H 11/28/24 22:02 38 C H 127 H 22 166/87 H 11/28/24 21:45 38.0 C H 127 H 22 166/87 H 11/28/24 21:15 37.2 C 124 H 18 162/107 H 11/28/24 21:00 37.5 C 125 H 22 191/116 H 11/28/24 20:46 37.5 C 124 H 20 162/98 H 11/28/24 20:41 37.5 C 124 H 20 142/89 H 11/28/24 20:30 125 H 22 184/136 H 11/28/24 18:29 11/28/24 18:14 11/28/24 16:50 163/137 H 11/28/24 16:27 11/28/24 16:03 11/28/24 15:54 11/28/24 15:44 124 H 11/28/24 15:40 37 C 127 H 22 210/106 H Pulse Ox O2 Del Method O2 Flow Rate 11/29/24 11:34 98 Nasal Cannula 4 11/29/24 11:25 97 Oxymask 5 11/29/24 11:15 100 Oxymask 5 11/29/24 11:08 99 Oxymask 5 11/29/24 09:33 95 Room Air 11/29/24 08:00 Room Air 11/29/24 07:00 97 Room Air 11/29/24 02:15 95 Room Air 11/29/24 00:15 95 Room Air 11/28/24 23:45 11/28/24 23:00 Room Air 11/28/24 23:00 11/28/24 22:45 93 11/28/24 22:36 11/28/24 22:13 11/28/24 22:02 98 11/28/24 21:45 98 11/28/24 21:15 94 11/28/24 21:00 95 11/28/24 20:46 96 Room Air 11/28/24 20:41 96 11/28/24 20:30 100 Room Air 11/28/24 18:29 Room Air 11/28/24 18:14 98 Room Air 11/28/24 16:50 11/28/24 16:27 99 11/28/24 16:03 96 11/28/24 15:54 98 11/28/24 15:44 11/28/24 15:40 97 Room Air Pain Intensity Right Flank: Pain Intensity: 6 Transfer of Care Handoff Completed per policy Notes Mental Status: alert / awake / arousable Patient Amnestic to Procedure: Yes Nausea / Vomiting: adequately controlled Pain: adequately controlled Airway Patency, RR, SpO2: stable & adequate BP & HR: stable & adequate Hydration State: stable & adequate Anesthetic Complications: no major complications apparent and Pt Satisfied with anesthetic care
--- NOTE | 2024-11-29 11:43 | XRay Report ---
XR chest 1V portable CLINICAL HISTORY: Post Bronchoscopy TECHNIQUE: Single frontal radiograph of the chest was obtained. Comparison: Comparison is made to chest radiograph 11/28/2024 FINDINGS: No lines and tubes are seen. The cardiomediastinal silhouette is normal. Right upper lung airspace op acity is increased from prior exam. No evidence of pleural effusion or pneumothorax. IMPRESSION: Increasing airspace opacity in right upper lung likely represents postbiopsy change. No evidence of p neumothorax. ACT 112: Negative or not required by law. Electronically signed by: Alphonso Diego M.D. 11/29/2024 11:41 AM
[2024-11-29] MEDS: LR 15ML/HR IV SCH (12:19)
[2024-11-29] MEDS: IRON SUCROSE 300 MG in SODIUM CHLORIDE 0.9% 250 ML IV ONE (12:26)
--- NOTE | 2024-11-29 13:49 | Oncology Consultation ---
Date of Consultation November 29, 2024 Assessment & Plan (1) Mass of upper lobe of lung: (2) Superior vena cava compression syndrome: Plan Gentleman who presented with respiratory symptoms with imaging suggestive of lung cancer with metastasis. He is s/p bronchoscopy/EBUS with biopsy with pathology pending -Await pathology results from bronchoscopy/EBUS with biopsy. Pathology will determine treatment options. If he is found to have small cell lung cancer, would need inpatient chemotherapy in the setting of SVC syndrome. If he does not have small cell lung cancer, may have to consider palliative radiation therapy followed by chemoimmunotherapy treatment. -If pathology confirms lung cancer, will need brain MRI for full staging Thank you for this consult. Will follow pathology results and see patient when available. Please feel free to call if you have any other questions History of Present Illness Attending Physician: Onofre Corral MD History of Present Illness 63-year-old gentleman with medical history significant for hypertension, dyslipidemia, hepatitis C and history of tuberculosis who presented with hemoptysis, weight loss, back and chest pain. Labs obtained in ER significant for leukocytosis with white cell count of 16.13, anemia with hemoglobin of 7.3, hematocrit 23.4, MCV 74.1 and platelet count of 514,000. CTA chest revealed large mass likely neoplastic in the right upper lobe invading the right mainstem bronchus, displacing but not occluding the SVC and partially encasing and possibly invading the right pulmonary artery, abnormal mass in the right upper abdominal quadrant. CT abdomen and pelvis revealed large mass centered in the right adrenal gland likely metastatic lesion to the adrenal gland with displace ment of the IVC, metastatic nodes around the stomach and in the retroperitoneum. He underwent bronchoscopy/EBUS with biopsy today with results pending Allergies Allergy/AdvReac Type Severity Reaction Status Date / Time No Known Allergies Allergy Unverified 11/28/24 18:08 Home Medications Medication Instructions Recorded Confirmed Type Vasotec 30 mg DAILY 11/28/24 11/28/24 History atorvastatin 20 mg PO DAILY 11/28/24 11/28/24 History labetalol 300 mg PO BID 11/28/24 11/28/24 History Patient History Medical History Hypertension Social History Smoking Status: Current every day smoker Tobacco Type: Cigarettes Hx Alcohol Use: No Hx Substance Use: No Preferred Language: Cymro Communication Ability: Unable Genetic Counsellor Required: No Beliefs That Will Affect Care: None Current Living Situation: Other Current Living Situation Comment: [facility] Other Information That Helps Us Care for You: No Feels Safe at Home: Yes Safety Concerns: Feels Safe At This Time Assistive Devices: None Results & Data Vital Signs (Past 12 Hours) Vital Signs Temp Pulse Pulse Pulse Resp BP Pulse Ox 11/29/24 12:58 86 20 119/70 99 11/29/24 12:36 88 18 122/71 99 11/29/24 11:45 81 14 123/72 98 11/29/24 11:35 36.4 C L 84 14 109/59 L 98 11/29/24 11:25 84 15 112/61 97 11/29/24 11:15 80 15 103/58 L 100 11/29/24 11:08 36.4 C L 80 17 123/72 99 11/29/24 09:33 37.4 C 91 H 20 95 11/29/24 08:00 11/29/24 07:00 36.4 C L 96 H 20 128/73 97 11/29/24 05:50 88 11/29/24 02:15 36.7 C 87 18 118/79 95 O2 Del Method O2 Flow Rate 11/29/24 12:58 Oxymask 2 11/29/24 12:36 Oxymask 5 11/29/24 11:45 Oxymask 4 11/29/24 11:35 Nasal Cannula 4 11/29/24 11:25 Oxymask 5 11/29/24 11:15 Oxymask 5 11/29/24 11:08 Oxymask 5 11/29/24 09:33 Room Air 11/29/24 08:00 Room Air 11/29/24 07:00 Room Air 11/29/24 05:50 11/29/24 02:15 Room Air
[2024-11-29 21:09] LABS: Hematocrit (blood only) 19.5 % (42.0-52.0)
[2024-11-29] MEDS ORDERED: SODIUM CHLORIDE 0.9% 100 ML IV PRN (21:25)
[2024-11-29] MEDS ORDERED: SODIUM CHLORIDE 0.9% 50 ML IV PRN (21:25)
[2024-11-29] MEDS: ACETAMINOPHEN 325 MG TAB PO STA (21:40)
[2024-11-29] MEDS: diphenhydrAMINE Capsule 25 MG CAP PO ONE (21:55)
[2024-11-30 06:37] LABS: Hematocrit (blood only) 22.5 % (42.0-52.0); Hemoglobin 7.1 g/dl (14.0-18.0); Mean Corpuscular Hemoglobin 24.3 pg (25.0-34.0); Mean Corpuscular Hgb Conc 31.6 g/dL (32.0-36.0); Mean Corpuscular Volume 77.1 fL (80.0-100.0); Mean Platelet Volume 8.7 fL (9.4-12.4); Nucleated RBC # (auto) 0.07 K/uL (0.00-0.12); Nucleated RBC % (auto) 0.4 %; Platelet Count 415 K/uL (130-400); RDW Coefficient of Variation 16.4 % (11.5-14.5); RDW Standard Deviation 45.7 fL (36.4-46.3); Red Blood Count 2.92 M/uL (4.70-6.10); White Blood Count 17.71 K/ul (4.8-10.8)
[2024-11-30 06:58] LABS: BUN Creatinine Ratio 30.6 (10-20); Calcium 8.4 mg/dl (8.6-10.3); Creatinine Clr Calc Pharmacy 75.6 ml/min; Magnesium 2.2 mg/dl (1.7-2.4); Potassium 4.4 mmol/L (3.5-5.1)
--- NOTE | 2024-11-30 07:38 | XRay Report ---
EXAM: XR chest 1V portable CLINICAL HISTORY: F/U KAB BME TECHNIQUE: Chest x ray performed in frontal projection. COMPARISON: 11/28/2024. FINDINGS: Right upper lobe extensive opacity extending to the perihilar and paramediastinal region as seen on prior CT chest and x-ray examination, likely representing neoplastic etiology. Haziness in the right lower lung zone. Left lung is clear. Bilateral costophrenic angles appear unremarkable. Heart size is within normal limits. The bony thoracic cage is intact. IMPRESSION: 1. Right upper lobe extensive opacity extending to the perihilar and paramediastinal region as seen on prior CT chest and x-ray examination, likely representing neoplastic etiology. 2. Slight interval increase in the haziness in the right lower lung zone, possible superimposed infection. Clinical correlation and follow-up are recommended. Electronically signed by Myron Shah 11-30-2024 07:37 AM
--- NOTE | 2024-11-30 08:45 | Pulmonology Progress Note ---
Date of Service November 30, 2024 Assessment & Plan (1) Mass of upper lobe of lung: (2) Anemia: (3) Superior vena cava compression syndrome: Plan CT chest 11/28/2024 personally reviewed: Mass in the right upper lobe 12.4 cm x 10.1 cm x 9.6 cm Endobronchial lesion appreciated in the RBI Groundglass opacities surrounding the mass likely lymphangitic spread Significant mediastinal lymphadenopathy at station 4R and station 7 -- Pulmonary mass with compression of the SVC right upper lobe 12.4 cm x 10.1 cm x 9.6 cm Likely malignant Given the endobronchial lesion possibility of squamous cell carcinoma is high Respiratory BioFire negative for everything on 11/28/2024 Nasal MRSA negative Procalcitonin 0.2 Patient does have right-sided suprarenal mass but it seems to be cystic, I discussed the case with IR and they are not confident that they will get a good yield Bronchoscopy with EBUS will be pursued S/p EBUS 11/29/2024: Large fungating mass in the right main oozing blood, primary diagnosis patient's malignancy, encounter for squamous --Postobstructive pneumonia Febrile Continue with antibiotics --Hemoptysis Secondary to fungating mass which is oozing blood Antitussive medication [id number] --History of tuberculosis S/p treatment for 6 months Plan: Chest x-ray from today does not show any significant change compared to the time of presentation Right lower lobe opacities likely from bronchoscopy Supportive care for anemia which is most likely from hemoptysis from the fungating mass Antitussive [id number] MRI of the brain to rule out mets The probability of patient having tuberculosis is low, if the smear from the [facility] wash is negative then I think it is reasonable to take him off airborne precaution Pulmonary will continue to follow Please note the above document was generated using voice recognition software. It may contain grammatical, syntax or spelling errors.Any formal questions or concerns about the content, text or information contained within the body of this dictation should be directly addressed to the provider for clarification. Admission and Anticipated Discharge Date Admission Date: November 28, 2024 Subjective Patient seen and examined at bedside. No acute distress, no adverse events overnight He was saturating 98% on 2 L nasal cannula, I took the oxygen off. He stated that he is feeling better. His hemoptysis has gone down in intensity and frequency Still complaining of chest pain and back pain on and off No unusual headache or blurry vision Has been afebrile Review of Systems 2 Review of Systems: All systems reviewed & are unremarkable except as noted in Subjective Physical Exam 2 Physical Exam: Constitutional: No acute distress HEENT: EOMI, PERRLA Respiratory system: Decreased air entry mild bilaterally, more decreased on the right side, no wheeze, no rhonchi, positive crackles right lower lobe CVS: S1-S2 positive, no murmurs or gallops Abdomen: Soft, nontender, nondistended, positive bowel sounds x4 Extremities: +2 pulses bilaterally radialis/ dorsalis pedis, no cyanosis, +2 pitting edema bilateral lower extremity Neuro: Awake alert oriented x3 Psych: Normal mood and affect G/U: No Alberto Skin: no rashes, warm and dry Lymphatic: no cervical or axillary lymphadenopathy Results & Data Results & Data Vital Signs (Past 12 Hours) Vital Signs Temp Pulse Resp BP Pulse Ox O2 Del Method O2 Flow Rate 11/30/24 01:35 36.7 C 76 18 123/73 98 2 11/30/24 01:22 36.6 C 77 16 118/69 98 2 11/30/24 01:21 36.6 C 77 16 119/69 99 2 11/30/24 00:22 36.6 C 81 18 128/74 100 2 11/29/24 23:22 36.8 C 86 18 118/69 98 2 11/29/24 22:52 36.8 C 87 16 118/69 97 2 11/29/24 22:37 37.0 C 84 16 118/71 98 2 11/29/24 22:18 36.8 C 87 18 122/72 98 2 11/29/24 21:00 Nasal Cannula 2 Laboratory Results 11/30/24 06:15 11/30/24 06:15 PG Care Time/CCT Total # of Minutes Spent Total Time Spent with Patient: Total time spent is greater than 50% in coordination of care (as documented) at patient's floor/unit and/or counseling patient: Coding Level of Care Code 59491 SUB INP/OBS CARE 3/50MIN Diagnoses Mass of upper lobe of lung R91.8 Anemia D64.9 Superior vena cava compression syndrome I87.1
[2024-11-30] MEDS: IRON SUCROSE 300 MG in SODIUM CHLORIDE 0.9% 250 ML IV ONE (10:04)
[2024-11-30 11:37] LABS: Quantiferon Mitogen-NIL 6.47 IU/mL; Quantiferon NIL 0.87 IU/mL; Quantiferon TB Gold Plus NEGATIVE (NEGATIVE); Quantiferon TB1-NIL 0.13 IU/mL; Quantiferon TB2-NIL 0.06 IU/mL
--- NOTE | 2024-11-30 15:10 | Hospitalist Progress Note ---
Date of Service November 30, 2024 Assessment & Plan (1) Mass of upper lobe of lung: (2) Pneumonia: (3) Anemia: Plan: Patient is a 63 yr male presents with history of hypertension, dyslipidemia, HCV, tuberculosis, presenting with hemoptysis. For the past week. Right upper lobe mass with right main endobronchial lesion Likely metastatic disease to Adrenals Superior vena cava compression syndrome secondary to above Postobstructive pneumonia H/O tobacco use, family history of cancer (Mother--breast Cancer) H/O Tuberculosis--completed treatment per patient Presents with ongoing cough, hemoptysis, weight loss --S/P flexible fiberoptic bronchoscopy with bronchial wash, transbronchial biopsies, endobronchial biopsies, FNA and EBUS on 11/29/24 --Nasal MRSA negative --Procalcitonin 0.2 --BioFire negative --CT chest: Large mass likely neoplastic in the right upper lobe invading the right mainstem bronchus, displacing but not occluding the SVC and partially encasing and possibly invading the right pulmonary artery. Postobstructive pneumonia in the right middle and lower lobes. No pulmonary embolus is identified. Abnormal mass in the right upper quadrant. See separately dictated CT abdomen report. --CT ABD/Pelvis:Large mass centered at the right adrenal gland likely is a metastatic lesion to the adrenal gland. There is displacement of the IVC. There is mild inflammation of the right kidney and collecting system. Correlate with urinalysis for associated pyelonephritis. Impression metastatic nodes about the stomach and in the retroperitoneum. --MRI Brain:pending -- Bronchial culture pending -- Blood cultures: No growth to date --Sputum for AFB pending --QuantiFERON-TB gold pending --Continue airborne precautions until tuberculosis ruled out --Continue cefepime, doxycycline -- Received IV fluids --Appreciate pulmonology input: Recommends oncology and MRI brain -- Appreciate oncology input: Recommends inpatient chemotherapy Vs palliative care based on path results Supplemental oxygen as needed Chest x-ray fairly unchanged from yesterday Anemia of chronic disease Iron deficiency anemia Reviewed iron panel: Low iron, transferrin levels. Ferritin likely elevated due to malignancy/infection Normal B12, folate levels Fecal occult pending --S/P 1 unit PRBC -- Also received IV Venofer Monitor H&H and transfuse as needed Avoid anticoagulation due to hemoptysis Will give additional Venofer today Hypertension Uncontrolled likely situational Continue home labetalol, enalapril IV hydralazine as needed Monitor blood pressure Other chronic medical problems: HCV Dyslipidemia--currently on statin DVT Px: SCDs Re: Anemia, hemoptysis CODE STATUS Full code Disposition Inmate of correctional facility Admission and Anticipated Discharge Date Admission Date: November 28, 2024 Subjective Patient is seen and examined at bedside Still has cough with intermittent hemoptysis No other complaints today Denies any dyspnea Saturating well on 2 L supplemental oxygen Denies any chest pain, nausea, vomiting, abdominal pain Longterm guards at bedside Review of Systems Review of Systems: All systems reviewed & are unremarkable except as noted in Subjective Physical Exam Physical Exam: Physical Exam: Vitals signs as noted above General Appearance:Moderately built and nourished, no apparent distress Head: normocephalic, Atraumatic Eyes: normal inspection, EOMI Neck: supple, Trachea midline Respiratory/Chest: Diminished breath sounds,minimal basal crackles, No accessory muscle use Cardiovascular: S1, S2, No murmur Abdomen/GI:Soft, Non tender, Bowel sounds present Extremities/Musculoskeletal:normal inspection, 1+edema Neurologic/Psych:AAOX3, grossly no focal neurological deficits Skin: normal color, warm Results & Data Results & Data Vital Signs (Past 12 Hours) Vital Signs Pulse O2 Del Method O2 Flow Rate 11/30/24 14:45 78 11/30/24 09:00 80 11/30/24 09:00 Nasal Cannula 2 Laboratory Results Short CBC 11/29/24 11/30/24 Range/Units 20:28 06:15 WBC 17.71 H (4.8-10.8) K/ul Hgb 6.0 L* 7.1 L (14.0-18.0) g/dl Hct 19.5 L* 22.5 L (42.0-52.0) % Plt Count 415 H (130-400) K/uL BMP 11/30/24 06:15 Sodium 134 L Potassium 4.4 Chloride 104 Carbon Dioxide 23 BUN 33 H Creatinine 1.08 Glucose 139 H Calcium 8.4 L (2) Pneumonia Laterality: right Lung location: upper lobe of lung Pneumonia type: due to unspecified organism Qualified Code(s): J18.9 - Pneumonia, unspecified organism
[2024-11-30 20:50] LABS: Hematocrit (blood only) 24.5 % (42.0-52.0); Hemoglobin 7.6 g/dl (14.0-18.0)
[2024-11-30] MEDS: DOXYCYCLINE HYCLATE 100 MG CAP PO SCH (21:11)
[2024-12-01 06:16] LABS: Hematocrit (blood only) 23.9 % (42.0-52.0); Hemoglobin 7.6 g/dl (14.0-18.0); Mean Corpuscular Hemoglobin 24.6 pg (25.0-34.0); Mean Corpuscular Hgb Conc 31.8 g/dL (32.0-36.0); Mean Corpuscular Volume 77.3 fL (80.0-100.0); Mean Platelet Volume 8.9 fL (9.4-12.4); Nucleated RBC # (auto) 0.21 K/uL (0.00-0.12); Platelet Count 448 K/uL (130-400); RDW Coefficient of Variation 17.2 % (11.5-14.5); RDW Standard Deviation 47.1 fL (36.4-46.3); Red Blood Count 3.09 M/uL (4.70-6.10)
[2024-12-01 06:42] LABS: BUN Creatinine Ratio 31.3 (10-20); Calcium 8.6 mg/dl (8.6-10.3); Potassium 4.7 mmol/L (3.5-5.1)
--- NOTE | 2024-12-01 08:28 | Hospitalist Progress Note ---
Date of Service December 01, 2024 Assessment & Plan (1) Mass of upper lobe of lung: Plan: Case was communicated with filament coil winder, given the patient has an element of postobstructive atelectasis or pneumonia, the impression is that the bulk of the finding on the CT is mass. MRI of the brain is pending to complete the workup, oncology is on board, as I understand patient is planned to start chemotherapy soon. He also has metastatic appearing right adrenal mass. Clinically he is a stable, saturating well on room air. At this time, it seems that patient is waiting for his a sputum culture to come back negative for TB prior to be excepted at MRI department. (2) Pneumonia: Plan: Patient is afebrile with ongoing/worsening leukocytosis but clinically he appears well with no significant respiratory complaints although he says that he had some chest discomfort upon deep inspiration, CT of the chest was reviewed during this admission. Continue with empirical cefepime and doxycycline. (3) Anemia: Plan: Hemoglobin is around 7.5, this is probably as a result of inflammatory anemia or paraneoplastic secondary to underlying malignancy. Will transfuse as needed. Due to anemia being hypochromic microcytic, patient was given iron infusion, I do not see any iron studies so we will order one to base to treatment. (4) Hyperlipidemia: Plan: Continue with home dose of Lipitor 20 mg daily. (5) Hypertension, essential: Plan: Blood pressure is controlled, continue with labetalol 300 mg twice daily and enalapril 30 mg daily. Plan At this time awaiting plan by oncology to see if they are interested in starting chemotherapy while patient is here, continue with empirical antibiotic, MRI of the brain is needed however prior to that MRI department is waiting for his sputum culture to come back negative for TB even though his QuantiFERON gold plus came back negative. Will follow along with pulmonary and oncology. Follow-up with the result of iron studies to calculate total iron body deficit and replace. Admission and Anticipated Discharge Date Admission Date: November 28, 2024 Subjective Patient is a 63-year-old inmate with history of hypertension, dyslipidemia, hepatitis C, treated tuberculosis who initially presented with hemoptysis, patient on imaging was found to have a large right upper lobe mass and some postobstructive atelectasis versus pneumonia. He remained afebrile however, treated empirically with IV antibiotics. Patient was seen by pulmonary, underwent bronchoscopy and biopsy and was seen by hematology and ordered to have an MRI of the brain after patient's abdominal CT showed presence of large adrenal mass on the right side. It seems that MRI cannot be done at this time considering that they have requested sputum culture to come back negative prior to taking patients to MRI. Patient was seen and examined, he does have some abdominal and chest discomfort but otherwise his oxygen saturation was fine on room air. He is not in any respiratory distress. Case was discussed with nursing staff at bedside. Physical Exam Physical Exam: VITALS: Reviewed. WEIGHT/BMI reviewed. GEN: Healthy appearing, well-developed, NAD. NECK: Supple, with no masses. CV: RRR, no m/r/g. LUNGS: Absent breath sounds on the right upper lobe ABD: Soft, NT/ND, NBS, no masses or organomegaly. : N/A MSK: No deformities, Normal gait. EXT: No clubbing, cyanosis, or edema. Results & Data Results & Data Vital Signs (Past 12 Hours) Vital Signs Temp Pulse Pulse Resp BP Pulse Ox O2 Del Method 12/01/24 03:07 36.9 C 90 19 141/68 H 92 Room Air 11/30/24 22:18 36.6 C 87 20 150/81 H 91 Room Air 11/30/24 21:45 90 11/30/24 21:00 Nasal Cannula O2 Flow Rate 12/01/24 03:07 11/30/24 22:18 11/30/24 21:45 11/30/24 21:00 2 Laboratory Results Laboratory Results - last 24 hr 11/28/24 11/30/24 12/01/24 19:20 19:59 05:59 WBC 21.90 H RBC 3.09 L Hgb 7.6 L 7.6 L Hct 24.5 L 23.9 L MCV 77.3 L MCH 24.6 L MCHC 31.8 L RDW Std Deviation 47.1 H RDW Coeff of Gerardo 17.2 H Plt Count 448 H MPV 8.9 L Absolute Nucleated RBC 0.21 H Nucleated RBC % (auto) 1.0 Sodium 136 Potassium 4.7 Chloride 105 Carbon Dioxide 24 Anion Gap 7 BUN 36 H Creatinine 1.15 Est Cr Clr Drug Dosing 71.0 eGFR 71.96 BUN/Creatinine Ratio 31.3 H Glucose 109 H Calcium 8.6 TB Test (QFT) Gold Plus NEGATIVE TB Test (QFT) Nil 0.87 TB Test Mitogen - Nil 6.47 TB Test Ag - Nil 1 0.13 TB Test Ag - Nil 2 0.06 Medications Administered Current Inpatient Medications Atorvastatin Calcium (Atorvastatin 20 Mg Tab) 20 mg PO DAILY [facility] Stop: 12/29/24 08:59 Last Admin: 12/01/24 08:05 Dose: 20 mg Doxycycline Hyclate (Doxycycline Hyclate 100 Mg Cap) 100 mg PO BID [facility] Stop: 12/04/24 21:01 Last Admin: 12/01/24 08:06 Dose: 100 mg Enalapril Maleate (Enalapril Maleate 10 Mg Tab) 30 mg PO DAILY [facility] Stop: 12/29/24 08:59 Last Admin: 12/01/24 08:06 Dose: 30 mg Hydralazine HCl (Hydralazine Hcl 20 Mg/Ml Vial) 5 mg IV Q6H PRN PRN Reason: systolic bp > 160 Stop: 12/28/24 18:16 Cefepime HCl (Maxipime 2000mg) 2,000 mg in 20 mls @ 5 mls/min IV Q8H [facility]; Protocol Stop: 12/03/24 19:59 Last Admin: 12/01/24 03:11 Dose: 5 mls/min Labetalol HCl (Labetalol Hcl 300 Mg Tab) 300 mg PO BID [facility] Stop: 12/28/24 20:59 Last Admin: 12/01/24 08:06 Dose: 300 mg Lorazepam (Lorazepam 0.5 Mg Tab) 0.5 mg PO TID PRN PRN Reason: Anxiety Stop: 12/29/24 02:08 Morphine Sulfate (Morphine Sulfate 4 Mg/Ml 1 Ml Carp\Vial) 3 mg IV Q4H PRN PRN Reason: severe pain Stop: 12/12/24 18:27 Last Admin: 12/01/24 03:11 Dose: 3 mg Oxycodone HCl (Oxycodone Hcl Ir 5 Mg Tab (Immediate Release)) 5 - 10 mg PO QID PRN PRN Reason: Pain Stop: 12/13/24 00:52 Last Admin: 11/30/24 21:11 Dose: 5 mg (2) Pneumonia Laterality: right Lung location: upper lobe of lung Pneumonia type: due to unspecified organism Qualified Code(s): J18.9 - Pneumonia, unspecified organism (3) Anemia Anemia type: other cause Other causes of anemia: chronic disease, other Qualified Code(s): D63.8 - Anemia in other chronic diseases classified elsewhere (4) Hyperlipidemia Hyperlipidemia type: mixed hyperlipidemia Qualified Code(s): E78.2 - Mixed hyperlipidemia
--- NOTE | 2024-12-01 08:53 | Pulmonology Progress Note ---
Date of Service December 01, 2024 Assessment & Plan (1) Mass of upper lobe of lung: (2) Anemia: Anemia type: other cause Other causes of anemia: chronic disease, other Qualified Code(s): D63.8 - Anemia in other chronic diseases classified elsewhere (3) Superior vena cava compression syndrome: Plan CT chest 11/28/2024 personally reviewed: Mass in the right upper lobe 12.4 cm x 10.1 cm x 9.6 cm Endobronchial lesion appreciated in the RBI Groundglass opacities surrounding the mass likely lymphangitic spread Significant mediastinal lymphadenopathy at station 4R and station 7 -- Pulmonary mass with compression of the SVC right upper lobe 12.4 cm x 10.1 cm x 9.6 cm Likely malignant Given the endobronchial lesion possibility of squamous cell carcinoma is high Respiratory BioFire negative for everything on 11/28/2024 Nasal MRSA negative Procalcitonin 0.2 Patient does have right-sided suprarenal mass but it seems to be cystic, I discussed the case with IR and they are not confident that they will get a good yield Bronchoscopy with EBUS will be pursued S/p EBUS 11/29/2024: Large fungating mass in the right main oozing blood, primary diagnosis patient's malignancy, encounter for squamous --Postobstructive pneumonia Febrile Continue with antibiotics --Hemoptysis Secondary to fungating mass which is oozing blood Antitussive medication [id number] --History of tuberculosis S/p treatment for 6 months Plan: Antitussive [id number] Recommend MRI of the brain to rule out mets The probability of patient having tuberculosis is low, bronc wash smear is negative for AFB as well as the sputum culture. I think it is reasonable to take the patient off isolation after talking with infectious control Awaiting final pathology report Case discussed with RN as well as primary team Please note the above document was generated using voice recognition software. It may contain grammatical, syntax or spelling errors.Any formal questions or concerns about the content, text or information contained within the body of this dictation should be directly addressed to the provider for clarification. Admission and Anticipated Discharge Date Admission Date: November 28, 2024 Subjective Patient seen and examined at bedside. No acute distress, no adverse events overnight He still bringing up bloody phlegm. Denies any significant chest pain He was saturating 90-91% on room air while laying on the right side. Appetite is fair, no nausea or vomiting Review of Systems 2 Review of Systems: All systems reviewed & are unremarkable except as noted in Subjective Physical Exam 2 Physical Exam: Constitutional: No acute distress HEENT: EOMI, PERRLA Respiratory system: Decreased air entry mild bilaterally, more decreased on the right side, no wheeze, no rhonchi, positive crackles right lower lobe CVS: S1-S2 positive, no murmurs or gallops Abdomen: Soft, nontender, nondistended, positive bowel sounds x4 Extremities: +2 pulses bilaterally radialis/ dorsalis pedis, no cyanosis, +2 pitting edema bilateral lower extremity Neuro: Awake alert oriented x3 Psych: Normal mood and affect G/U: No Alberto Skin: no rashes, warm and dry Lymphatic: no cervical or axillary lymphadenopathy Results & Data Results & Data Vital Signs (Past 12 Hours) Vital Signs Temp Pulse Pulse Resp BP Pulse Ox O2 Del Method 12/01/24 03:07 36.9 C 90 19 141/68 H 92 Room Air 11/30/24 22:18 36.6 C 87 20 150/81 H 91 Room Air 11/30/24 21:45 90 11/30/24 21:00 Nasal Cannula O2 Flow Rate 12/01/24 03:07 11/30/24 22:18 11/30/24 21:45 11/30/24 21:00 2 Laboratory Results 12/01/24 05:59 12/01/24 05:59 PG Care Time/CCT Total # of Minutes Spent Total Time Spent with Patient: Total time spent is greater than 50% in coordination of care (as documented) at patient's floor/unit and/or counseling patient: Coding Level of Care Code 22802 SUB INP/OBS CARE 2/35MIN Diagnoses Mass of upper lobe of lung R91.8 Anemia in other chronic diseases classified elsewhere D63.8 Anemia type: other cause Other causes of anemia: chronic disease, other Superior vena cava compression syndrome I87.1
[2024-12-01 09:11] LABS: Iron 47 mcg/dl (35-175); Total Iron Binding Cap Calc 199 mcg/dl (250-450); Transferrin 142 mg/dl (200-360); Transferrin (FE) Percent Satur 24 % (20-50)
[2024-12-01] MEDS ORDERED: ENOXAPARIN INJ 40 MG/0.4 ML SYR SQ SCH (18:00)
[2024-12-01] MEDS: ENOXAPARIN INJ 40 MG/0.4 ML SYR SQ SCH (18:48)
[2024-12-01] MEDS ORDERED: ACETAMINOPHEN 325 MG TAB PO PRN (20:24)
[2024-12-01] MEDS: SODIUM CHLORIDE 0.9% 1,000 ML IV ONE (20:58)
[2024-12-01] MEDS: ACETAMINOPHEN 325 MG TAB PO STA (20:58)
--- NOTE | 2024-12-01 21:24 | Communication Note ---
Date of Service: December 01, 2024 Made aware by RN of concerns regarding scheduled Lovenox subcu administration with active hemoptysis episodes as of today. Hold Lovenox subcu for now
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
--- NOTE | 2024-12-02 10:10 | Hospitalist Progress Note ---
Date of Service December 02, 2024 Assessment & Plan (1) Mass of upper lobe of lung: Plan: I am in conversation with oncologist who is covering today to see the plan of chemotherapy if there is 1, MRI will be done today, we will try to coordinate plan of care today, based on my conversation with pulmonology, it is believed that he has a huge mass on the right upper lobe which has completely opacified the right upper lobe. He also has metastatic appearing right adrenal mass. Clinically he is a stable, saturating well on room air. (2) Pneumonia: Plan: Continue with empirical cefepime and doxycycline. (3) Anemia: Plan: Hemoglobin is around 7.5, this is probably as a result of inflammatory anemia or paraneoplastic secondary to underlying malignancy. Will transfuse as needed. Due to anemia being hypochromic microcytic, patient was given iron infusion, iron study showed normal serum iron but low TIBC and transferrin, this is a picture of chronic inflammatory anemia. (4) Hyperlipidemia: Plan: Continue with home dose of Lipitor 20 mg daily. (5) Hypertension, essential: Plan: Blood pressure is controlled, continue with labetalol 300 mg twice daily and enalapril 30 mg daily. Plan Awaiting MRI of the brain today and also plan by hematology, if there is no intention of starting chemotherapy right away, and the plan is to wait for the result of pathology, patient with probably can be discharged back to facility and be brought back as an outpatient once the result of pathology is out and plan is consolidated for either chemo or radiation. However otherwise if there is a plan for starting chemotherapy right away after MRI of the brain, we will be more than happy to accommodate this. Admission and Anticipated Discharge Date Admission Date: November 28, 2024 Subjective Patient is a 63-year-old inmate with history of hypertension, dyslipidemia, hepatitis C, treated tuberculosis who initially presented with hemoptysis, patient on imaging was found to have a large right upper lobe mass and some p ostobstructive atelectasis versus pneumonia. He remained afebrile however, treated empirically with IV antibiotics. Patient was seen by pulmonary, underwent bronchoscopy and biopsy and was seen by hematology and ordered to have an MRI of the brain after patient's abdominal CT showed presence of large adrenal mass on the right side. It seems that MRI cannot be done at this time considering that they have requested sputum culture to come back negative prior to taking patients to MRI. Patient seen and evaluated at bedside. Remained stable overnight without any further issue. The issue with MRI was cleared, patient was taken off isolation, I am in conversation with hematology/oncology to see what the plan is. Physical Exam Physical Exam: VITALS: Reviewed. CV: RRR, no m/r/g. LUNGS: Absent breath sounds on the right upper lobe ABD: Soft, NT/ND, NBS, no masses or organomegaly. : N/A MSK: No deformities, Normal gait. EXT: No clubbing, cyanosis, or edema. Results & Data Results & Data Vital Signs (Past 12 Hours) Vital Signs Temp Pulse Pulse Resp BP Pulse Ox O2 Del Method 12/02/24 08:09 37.6 C H 84 20 148/79 H 96 Nasal Cannula 12/02/24 05:41 90 12/02/24 05:33 36.9 C 83 18 138/79 2 L Nasal Cannula 12/01/24 23:43 37.1 C 77 20 98/59 L 94 Room Air O2 Flow Rate 12/02/24 08:09 2 12/02/24 05:41 12/02/24 05:33 96 12/01/24 23:43 Medications Administered Current Inpatient Medications Acetaminophen (Acetaminophen 325 Mg Tab) 650 mg PO QID PRN PRN Reason: pain/fever Stop: 12/31/24 20:23 Atorvastatin Calcium (Atorvastatin 20 Mg Tab) 20 mg PO DAILY [facility] Stop: 12/29/24 08:59 Last Admin: 12/02/24 09:35 Dose: 20 mg Doxycycline Hyclate (Doxycycline Hyclate 100 Mg Cap) 100 mg PO BID [facility] Stop: 12/04/24 21:01 Last Admin: 12/02/24 09:35 Dose: 100 mg Enalapril Maleate (Enalapril Maleate 10 Mg Tab) 30 mg PO DAILY [facility] Stop: 12/29/24 08:59 Last Admin: 12/02/24 09:36 Dose: 30 mg Enoxaparin Sodium (Enoxaparin Inj 40 Mg/0.4 Ml Syr) 40 mg SQ Q24H [facility] Stop: 12/31/24 17:59 Last Admin: 12/01/24 18:48 Dose: 40 mg Hydralazine HCl (Hydralazine Hcl 20 Mg/Ml Vial) 5 mg IV Q6H PRN PRN Reason: systolic bp > 160 Stop: 12/28/24 18:16 Cefepime HCl (Maxipime 2000mg) 2,000 mg in 20 mls @ 5 mls/min IV Q8H [facility]; Protocol Stop: 12/03/24 19:59 Last Admin: 12/02/24 04:24 Dose: 5 mls/min Sodium Chloride (Nss) 1,000 mls @ 60 mls/hr IV .[id number] ONE Stop: 12/02/24 13:04 Last Admin: 12/01/24 20:58 Dose: 60 mls/hr Labetalol HCl (Labetalol Hcl 300 Mg Tab) 300 mg PO BID [facility] Stop: 12/28/24 20:59 Last Admin: 12/02/24 09:35 Dose: 300 mg Lorazepam (Lorazepam 0.5 Mg Tab) 0.5 mg PO TID PRN PRN Reason: Anxiety Stop: 12/29/24 02:08 Morphine Sulfate (Morphine Sulfate 4 Mg/Ml 1 Ml Carp\Vial) 3 mg IV Q4H PRN PRN Reason: severe pain Stop: 12/12/24 18:27 Last Admin: 12/01/24 20:28 Dose: 3 mg Oxycodone HCl (Oxycodone Hcl Ir 5 Mg Tab (Immediate Release)) 5 - 10 mg PO QID PRN PRN Reason: Pain Stop: 12/13/24 00:52 Last Admin: 12/02/24 05:24 Dose: 10 mg (2) Pneumonia Laterality: right Lung location: upper lobe of lung Pneumonia type: due to unspecified organism Qualified Code(s): J18.9 - Pneumonia, unspecified organism (3) Anemia Anemia type: other cause Other causes of anemia: chronic disease, other Qualified Code(s): D63.8 - Anemia in other chronic diseases classified elsewhere (4) Hyperlipidemia Hyperlipidemia type: mixed hyperlipidemia Qualified Code(s): E78.2 - Mixed hyperlipidemia
--- NOTE | 2024-12-02 12:19 | XRay Report ---
XR chest 1V portable CLINICAL HISTORY: Before MRI TECHNIQUE: Single frontal radiograph of the chest was obtained. Comparison: Comparison is made to radiograph 11/30/2024 FINDINGS: No lines and tubes are seen. The cardiomediastinal silhouette is normal. Opacity in the right upper l jacqueline is unchanged. No evidence of pleural effusion or pneumothorax. IMPRESSION: Stable right upper lung opacity which likely represents malignancy. ACT 112: Negative or not required by law. Electronically signed by: Alphonso Diego M.D. 12/02/2024 12:18 PM
--- NOTE | 2024-12-03 10:07 | Hospitalist Progress Note ---
Date of Service December 03, 2024 Assessment & Plan (1) Mass of upper lobe of lung: Plan: This was found to be likely adenocarcinoma of the lung(non-small cell carcinoma), oncology plans to do chemotherapy as outpatient. Patient continues to have intermittent hemoptysis but it is not significant, it caused some chronic blood loss anemia and especially considering that patient has anemia of chronic disease as well that might explain his need for transfusion. (2) Pneumonia: Plan: will discontinue IV antibiotic and keep him on doxycycline. (3) Anemia: Plan: Hemoglobin is around 7.5, this is probably as a result of inflammatory anemia or paraneoplastic secondary to underlying malignancy. Will transfuse as needed. Due to anemia being hypochromic microcytic, patient was given iron infusion, iron study showed normal serum iron but low TIBC and transferrin, this is a picture of chronic inflammatory anemia. (4) Hyperlipidemia: Plan: Continue with home dose of Lipitor 20 mg daily. (5) Hypertension, essential: Plan: Blood pressure is at times elevated, overall looking at all his blood pressure records, I feel that he is average blood pressure is stable, continue with labetalol 300 mg twice daily and enalapril 30 mg daily. Plan Difficulty making decision about disposition, oncology plans to start chemotherapy as outpatient, he needs airborne isolation per recommendation by CDC until 6 weeks that he is a sputum culture comes back, it is unclear whether this can be done at correctional facility without the risk of exposing other inmates. Only then if the test is negative, he can have MRI of the brain. Sending him out will have the risk of him getting lost into follow-up. From the other side, keeping him in for 6 months is not reasonable, I will discuss this with case management to make the best decision. Admission and Anticipated Discharge Date Admission Date: November 28, 2024 Subjective Patient is a 63-year-old inmate with history of hypertension, dyslipidemia, hepatitis C, treated tuberculosis who initially presented with hemoptysis, patient on imaging was found to have a large right upper lobe mass and some postobstructive atelectasis versus pneumonia. He remained afebrile however, treated empirically with IV antibiotics. Patient was seen by pulmonary, underwent bronchoscopy and biopsy and was seen by hematology and ordered to have an MRI of the brain after patient's abdominal CT showed presence of large adrenal mass on the right side. It seems that MRI cannot be done at this time considering that they have requested sputum culture to come back negative prior to taking patients to MRI. The result of biopsy today showed the mass being non-small cell lung cancer favoring adenocarcinoma, this was communicated with oncology in case they have any plan of starting any chemotherapy while here. However they still recommended outpatient chemotherapy. Patient seen and evaluated at bedside. Clinically remained stable, continues to have some mild intermittent hemoptysis with H&H remained relatively stable. I will discuss the plan of disposition with case management. Physical Exam Physical Exam: VITALS: Reviewed. WEIGHT/BMI reviewed. GEN: Healthy appearing, well-developed, NAD. CV: RRR, no m/r/g. LUNGS: CTAB, no w/r/c. ABD: Soft, NT/ND, NBS, no masses or organomegaly. : N/A SKIN: Warm, well perfused. No skin rashes or abnormal lesions. MSK: No deformities, Normal gait. EXT: No clubbing, cyanosis, or edema. NEURO: Ambulating with no limitations. Normal muscle strength and tone. No focal deficits. Results & Data Results & Data Vital Signs (Past 12 Hours) Vital Signs Temp Pulse Pulse Pulse Resp BP Pulse Ox 12/03/24 09:07 85 12/03/24 08:13 37.3 C 83 173/77 H 92 12/03/24 08:00 12/03/24 08:00 85 12/03/24 03:44 37.2 C 85 20 147/74 H 96 12/02/24 23:12 76 18 121/67 94 12/02/24 22:39 82 O2 Del Method 12/03/24 09:07 12/03/24 08:13 Room Air 12/03/24 08:00 Room Air 12/03/24 08:00 12/03/24 03:44 Room Air 12/02/24 23:12 Room Air 12/02/24 22:39 Diagnostic Findings Chest X-Ray 12/02/24 11:44 XR chest 1V portable CLINICAL HISTORY: Before MRI TECHNIQUE: Single frontal radiograph of the chest was obtained. Comparison: Comparison is made to radiograph 11/30/2024 FINDINGS: No lines and tubes are seen. The cardiomediastinal silhouette is normal. Opacity in the right upper lung is unchanged. No evidence of pleural effusion or pneumothorax. IMPRESSION: Stable right upper lung opacity which likely represents malignancy. ACT 112: Negative or not required by law. Electronically signed by: Alphonso Diego M.D. 12/02/2024 12:18 PM Medications Administered Current Inpatient Medications Acetaminophen (Acetaminophen 325 Mg Tab) 650 mg PO QID PRN PRN Reason: pain/fever Stop: 12/31/24 20:23 Atorvastatin Calcium (Atorvastatin 20 Mg Tab) 20 mg PO DAILY [facility] Stop: 12/29/24 08:59 Last Admin: 12/03/24 07:52 Dose: 20 mg Doxycycline Hyclate (Doxycycline Hyclate 100 Mg Cap) 100 mg PO BID [facility] Stop: 12/04/24 21:01 Last Admin: 12/03/24 07:52 Dose: 100 mg Enalapril Maleate (Enalapril Maleate 10 Mg Tab) 30 mg PO DAILY [facility] Stop: 12/29/24 08:59 Last Admin: 12/03/24 07:52 Dose: 30 mg Enoxaparin Sodium (Enoxaparin Inj 40 Mg/0.4 Ml Syr) 40 mg SQ Q24H [facility] Stop: 12/31/24 17:59 Last Admin: 12/01/24 18:48 Dose: 40 mg Hydralazine HCl (Hydralazine Hcl 20 Mg/Ml Vial) 5 mg IV Q6H PRN PRN Reason: systolic bp > 160 Stop: 12/28/24 18:16 Cefepime HCl (Maxipime 2000mg) 2,000 mg in 20 mls @ 5 mls/min IV Q8H [facility]; Protocol Stop: 12/03/24 19:59 Last Admin: 12/03/24 03:41 Dose: 5 mls/min Labetalol HCl (Labetalol Hcl 300 Mg Tab) 300 mg PO BID [facility] Stop: 12/28/24 20:59 Last Admin: 12/03/24 07:51 Dose: 300 mg Lorazepam (Lorazepam 0.5 Mg Tab) 0.5 mg PO TID PRN PRN Reason: Anxiety Stop: 12/29/24 02:08 Morphine Sulfate (Morphine Sulfate 4 Mg/Ml 1 Ml Carp\Vial) 3 mg IV Q4H PRN PRN Reason: severe pain Stop: 12/12/24 18:27 Last Admin: 12/03/24 03:41 Dose: 3 mg Oxycodone HCl (Oxycodone Hcl Ir 5 Mg Tab (Immediate Release)) 5 - 10 mg PO QID PRN PRN Reason: Pain Stop: 12/13/24 00:52 Last Admin: 12/02/24 19:40 Dose: 10 mg (2) Pneumonia Laterality: right Lung location: upper lobe of lung Pneumonia type: due to unspecified organism Qualified Code(s): J18.9 - Pneumonia, unspecified organism (3) Anemia Anemia type: other cause Other causes of anemia: chronic disease, other Qualified Code(s): D63.8 - Anemia in other chronic diseases classified elsewhere (4) Hyperlipidemia Hyperlipidemia type: mixed hyperlipidemia Qualified Code(s): E78.2 - Mixed hyperlipidemia
--- NOTE | 2024-12-03 14:05 | Radiation OncologyConsultation ---
Date of Consultation December 03, 2024 Assessment & Plan (1) Lung cancer: Plan Assessment: Mr. Albarran is a 64-year-old gentleman who is recently diagnosed with newly diagnosed metastatic adenocarcinoma of the right lung. The patient is currently admitted to the hospital. He is mildly symptomatic with some shortness of breath and chest tightness however he is stable overall. The patient originally noted hemoptysis which has significantly improved. The patient has been seen by Dr. Dahl from medical oncology who has recommended consideration of chemotherapy in the outpatient setting. I am now seeing the patient in consultation to discuss the role of radiation therapy. Recommendation: If the patient remains stable with respect to respiratory and vascular systems, we would recommend chemotherapy in the outpatient setting. If the patient's symptoms increased or the patient becomes more unstable prior to discharge, palliative radiation therapy may be warranted. These recommendations have been confirmed with medical oncology, Dr. Dahl. Plan: 1. No role for radiation therapy currently. Plan for chemotherapy outpatient setting. 2. Consider radiation therapy if patient's status changes. 3. Complete staging workup including PET/CT in the outpatient setting and MRI of the brain. 4. Continue follow-up with pulmonary medicine and medical oncology. 5. Patient can be referred back to us at the appropriate time if needed. 6. Patient and family encouraged to call us with any further questions or concerns. History of Present Illness Reason for Consultation: Right upper lobe lung cancer Requesting Physician: Shala Ramos MD Attending Physician: Shala Ramos MD History of Present Illness 11/28/2024. Emergency room presentation due to hemoptysis. Evaluation revealed anemia as well as a right upper lobe lung mass. Patient has had hemoptysis with a poor appetite. He has lost approximately 10 pounds. He notes shortness of breath with minimal exertion. He has also noted wheezing in the right side of his chest. 11/28/2024. Chest x-ray. Considerable masslike opacification of the right upper and superior segment of the right lower lobes. Consider central obstruction. IV contrast CT chest would best assess. 11/28/2024. CT of the abdomen and pelvis. 1. Large mass centered at the right adrenal gland likely is a metastatic lesion to the adrenal gland. There is displacement of the IVC. 2. There is mild inflammation of the right kidney and collecting system. Correlate with urinalysis for associated pyelonephritis. Impression metastatic nodes about the stomach and in the retroperitoneum. 11/28/2024. CTA of the chest. 1. Large mass likely neoplastic in the right upper lobe invading the right mainstem bronchus, displacing but not occluding the SVC and partially encasing and possibly invading the right pulmonary artery. 2. Postobstructive pneumonia in the right middle and lower lobes. 3. No pulmonary embolus is identified. 4. Abnormal mass in the right upper quadrant. See separately dictated CT abdomen report. 11/29/2024. Bronchoscopy (Dr. López). Patient has a large fungating mass. This is in the right upper lobe. Multiple biopsies were taken. Path report reveals: Lung, right upper lobe, endobronchial ultrasound fine-needle aspiration: Non-small cell carcinoma favor adenocarcinoma. Lymph node, 4R, endobronchial ultrasound fine-needle aspiration: Metastatic non-small cell carcinoma. Lung, right upper lobe mass, transbronchial biopsy: Non-small cell carcinoma favor adenocarcinoma. 11/29/2024. Chest x-ray. Increasing airspace opacities in the right upper lung likely represent postbiopsy change. No evidence of pneumothorax. 11/29/2024. Medical oncology consultation (Dr. Dahl). If small cell carcinoma will plan inpatient chemotherapy. If non-small cell carcinoma consider palliative radiotherapy followed by chemoimmunotherapy. Plan MRI of the brain to complete full staging. 12/03/2024. Radiation oncology consultation. Patient continues to have hemoptysis. He states that this is improved since admission. He now sees only small flecks of blood. His shortness of breath is improved. He does still continue to hear wheezing in his chest. Previously there was a discomfort that has improved since admission. He has some mild discomfort of the right lower back region. Allergies Allergy/AdvReac Type Severity Reaction Status Date / Time No Known Allergies Allergy Unverified 11/28/24 18:08 Home Medications Medication Instructions Recorded Confirmed Type Vasotec 30 mg DAILY 11/28/24 11/28/24 History atorvastatin 20 mg PO DAILY 11/28/24 11/28/24 History labetalol 300 mg PO BID 11/28/24 11/28/24 History Patient History Medical History Hypertension Social History Smoking Status: Current every day smoker Tobacco Type: Cigarettes Hx Alcohol Use: No Hx Substance Use: No Preferred Language: Upper Sorbian Communication Ability: Unable Plate Hanger Required: No Beliefs That Will Affect Care: None Current Living Situation: Other Current Living Situation Comment: [facility] Other Information That Helps Us Care for You: No Feels Safe at Home: Yes Safety Concerns: Feels Safe At This Time Assistive Devices: None Review of Systems Review of Systems: 13 point review of systems negative othe r than what is in the history of present illness. Physical Exam Constitutional: WD/WN, vitals as above Eyes: PERRL, conjunctivae normal, anicteric sclerae ENMT: Ears: no hearing impairment Neck: trachea midline, no thyromegaly Respiratory: no respiratory distress and does not use accessory muscles Auscultation: + wheezes (Inspiratory and expiratory wheezing right midlung field.) Cardiovascular: RRR, no murmur, no edema Gastrointestinal (Abdomen): normal bowel sounds, soft, nontender, no hepatosplenomegaly Skin: no rashes, warm and dry Psychiatric: A+Ox3, euthymic affect Time Spent Midlevel I spent [20] minutes in preparation for this follow up evaluation including reviewing all the clinical records, reviewing laboratory studies, pathology reports and imaging results. I spent [20] minutes with direct face to face interaction with the patient and/or family including performing a physical exam and answering all questions. I spent [10] minutes documenting this patient's visit. Attending I spent 10 minutes in preparation for this consultation including reviewing all the clinical records, reviewing laboratory studies, pathology reports and imaging results. I spent 15 minutes with direct face to face interaction with the patient and/or family including performing a physical exam and answering all questions. I spent 10 minutes documenting this patient's visit. PG Care Time/CCT Total # of Minutes Spent Total Time Spent with Patient: Total time spent is greater than 50% in coordination of care (as documented) at patient's floor/unit and/or counseling patient: Coding Level of Care Code 20187 IN/OBS CONSULT LVL 5,80M Diagnoses Lung cancer C34.90
--- NOTE | 2024-12-03 15:41 | Pulmonology Progress Note ---
Date of Service December 03, 2024 Assessment & Plan (1) Mass of upper lobe of lung: (2) Anemia: Anemia type: other cause Other causes of anemia: chronic disease, other Qualified Code(s): D63.8 - Anemia in other chronic diseases classified elsewhere (3) Superior vena cava compression syndrome: (4) Adenocarcinoma of left lung: Plan CT chest 11/28/2024 personally reviewed: Mass in the right upper lobe 12.4 cm x 10.1 cm x 9.6 cm Endobronchial lesion appreciated in the RBI Groundglass opacities surrounding the mass likely lymphangitic spread Significant mediastinal lymphadenopathy at station 4R and station 7 -- Pulmonary mass with compression of the SVC right upper lobe 12.4 cm x 10.1 cm x 9.6 cm Likely malignant Given the endobronchial lesion possibility of squamous cell carcinoma is high Respiratory BioFire negative for everything on 11/28/2024 Nasal MRSA negative Procalcitonin 0.2 Patient does have right-sided suprarenal mass but it seems to be cystic, I discussed the case with IR and they are not confident that they will get a good yield Bronchoscopy with EBUS will be pursued S/p EBUS 11/29/2024: Large fungating mass in the right main oozing blood --Postobstructive pneumonia Febrile Continue with antibiotics --Hemoptysis Secondary to fungating mass which is oozing blood Antitussive medication [id number] --History of tuberculosis S/p treatment for 6 months Plan: Antitussive [id number] Recommend MRI of the brain to rule out mets The probability of patient having tuberculosis is low, bronc wash smear is negative for AFB as well as the sputum culture. 1 does not need to wait for the cultures to come back before taking off isolation, I think it is reasonable to take the patient off isolation after talking with infectious control EBUS was positive for adenocarcinoma of the lung Nonurgent follow-up with interventional pulmonary could be thought of in future if there seems to be collapse of the right lower lobe due to obstructing fungating mass Case was discussed with primary team No further recommendation from pulmonary perspective, will sign off Please call directly with any questions Please note the above document was generated using voice recognition software. It may contain grammatical, syntax or spelling errors.Any formal questions or concerns about the content, text or information contained within the body of this dictation should be directly addressed to the provider for clarification. Admission and Anticipated Discharge Date Admission Date: November 28, 2024 Subjective Patient seen and examined at bedside. No acute distress, no adverse events overnight He was saturating 94 to 95% on room air Still complains of discomfort on the right side Denies any nausea vomiting Fair appetite Still having hemoptysis Review of Systems 2 Review of Systems: All systems reviewed & are unremarkable except as noted in Subjective Physical Exam 2 Physical Exam: Constitutional: No acute distress HEENT: EOMI, PERRLA Respiratory system: Decreased air entry mild bilaterally, more decreased on the right side, no wheeze, positive rhonchi on the right side, positive crackles right lower lobe CVS: S1-S2 positive, no murmurs or gallops Abdomen: Soft, nontender, nondistended, positive bowel sounds x4 Extremities: +2 pulses bilaterally radialis/ dorsalis pedis, no cyanosis, +2 pitting edema bilateral lower extremity Neuro: Awake alert oriented x3 Psych: Normal mood and affect G/U: No Alberto Skin: no rashes, warm and dry Lymphatic: no cervical or axillary lymphadenopathy Results & Data Results & Data Vital Signs (Past 12 Hours) Vital Signs Temp Pulse Pulse Pulse Resp BP Pulse Ox 12/03/24 12:05 37.5 C 75 22 154/66 H 95 12/03/24 09:07 85 12/03/24 08:13 37.3 C 83 173/77 H 92 12/03/24 08:00 12/03/24 08:00 85 12/03/24 03:44 37.2 C 85 20 147/74 H 96 O2 Del Method 12/03/24 12:05 Room Air 12/03/24 09:07 12/03/24 08:13 Room Air 12/03/24 08:00 Room Air 12/03/24 08:00 12/03/24 03:44 Room Air Laboratory Results 12/01/24 05:59 12/01/24 05:59 PG Care Time/CCT Total # of Minutes Spent Total Time Spent with Patient: Total time spent is greater than 50% in coordination of care (as documented) at patient's floor/unit and/or counseling patient: Coding Level of Care Code 23285 SUB INP/OBS CARE 2/35MIN Diagnoses Mass of upper lobe of lung R91.8 Anemia in other chronic diseases classified elsewhere D63.8 Anemia type: other cause Other causes of anemia: chronic disease, other Superior vena cava compression syndrome I87.1 Adenocarcinoma of left lung C34.92
[2024-12-04 04:18] VITALS: O2SAT 97
[2024-12-04 07:29] LABS: Basophils # (auto) 0.05 K/uL (0.00-0.20); Basophils % (auto) 0.3 %; Eosinophils # (auto) 1.24 K/uL (0.00-0.50); Eosinophils % (auto) 6.7 %; Hematocrit (blood only) 25.3 % (42.0-52.0); Hemoglobin 7.8 g/dl (14.0-18.0); Immature Granulocytes # (auto) 0.23 K/uL (0.01-0.20); Immature Granulocytes % (auto) 1.2 %; Lymphocytes # (auto) 1.55 K/uL (1.20-3.40); Lymphocytes % (auto) 8.4 %; Mean Corpuscular Hemoglobin 24.4 pg (25.0-34.0); Mean Corpuscular Hgb Conc 30.8 g/dL (32.0-36.0); Mean Corpuscular Volume 79.1 fL (80.0-100.0); Mean Platelet Volume 9.2 fL (9.4-12.4); Monocytes # (auto) 1.97 K/uL (0.11-0.59); Monocytes % (auto) 10.7 %; Neutrophils # (auto) 13.42 K/uL (1.40-6.50); Neutrophils % (auto) 72.7 %; Platelet Count 431 K/uL (130-400); RDW Coefficient of Variation 19.4 % (11.5-14.5); RDW Standard Deviation 54.2 fL (36.4-46.3); White Blood Count 18.46 K/ul (4.8-10.8)
[2024-12-04 08:05] LABS: Hypochromasia Present; Polychromasia 1+
[2024-12-04 08:08] VITALS: BP 160/83; RESP 16; TEMP 98.1
--- NOTE | 2024-12-04 09:26 | Discharge Summary ---
Discharge Summary Date of Service December 04, 2024 Principal Dx & Hospital Course #1 = Principal Diagnosis (1) Mass of upper lobe of lung: (2) Pneumonia: (3) Anemia: (4) Hyperlipidemia: (5) Hypertension, essential: Notes For Next Care Provider Medication Changes From Visit Doxycycline 100 mg twice daily for 7 days Oxycodone 5 mg every 4 hours as needed Admission HPI Per Admitting Provider Patient is a 63-year-old inmate with history of hypertension, dyslipidemia, hepatitis C, treated tuberculosis who initially presented with hemoptysis, patient on imaging was found to have a large right upper lobe mass and some postobstructive atelectasis versus pneumonia. He remained afebrile however, treated empirically with IV antibiotics. Patient was seen by pulmonary, underwent bronchoscopy and biopsy and was seen by hematology and ordered to have an MRI of the brain after patient's abdominal CT showed presence of large adrenal mass on the right side. It seems that MRI cannot be done at this time considering that they have requested sputum culture to come back negative prior to taking patients to MRI. The result of biopsy today showed the mass being non-small cell lung cancer favoring adenocarcinoma, this was communicated with oncology in case they have any plan of starting any chemotherapy while here. However they still recommended outpatient chemotherapy. Patient was seen by radiation oncologist yesterday and no intervention was recommended, patient was seen and examined today, at this time after discussing the case with case management yesterday, it is felt that the best option would be for patient to go back to his correctional facility, remain under airborne isolation until his sputum culture comes back at which time if negative can be taken off isolation, in the meantime patient would be called upon by oncology and radiation oncology once his biopsy is finalized for chemotherapy and radiation treatment if recommended and needed. Patient would need his pain to be addressed and to begin with I recommended oxycodone 5 mg every 4 hours as needed, he may need long lasting opioids to be used such as MS Contin or OxyContin. His oxygen needs to be addressed as well, I explained to the medical team at correctional facility over the phone that pain, occasional hemoptysis, are expected to be there as his main issue remains and so they should not be surprised to have the symptoms however if clinically he deteriorates then he has to be transferred back to the hospital for things like massive hemoptysis and bleeding or hypotension which is probably because of SVC compression because of the tumor or severe hypoxia not manageable at facility. Updated Medication List Medication Instructions Recorded Confirmed Type Vasotec 30 mg DAILY 11/28/24 11/28/24 History atorvastatin 20 mg PO DAILY 11/28/24 11/28/24 History labetalol 300 mg PO BID 11/28/24 11/28/24 History doxycycline hyclate 100 mg capsule 100 mg PO BID 7 days #14 caps 12/04/24 Rx isosorbide mononitrate 30 mg 30 mg PO DAILY #30 tabs 12/04/24 Rx tablet,extended release 24 hr oxycodone 5 mg tablet 5 mg PO Q4H PRN pain #30 tabs 12/04/24 Rx Hospital Stay Data Consultations 11/28/24 17:59 ED Decision to Admit Stat 11/28/24 18:16 Consult Pulmonology Routine 11/29/24 13:11 Consult Oncology Routine 12/03/24 10:39 Consult Radiation Oncology Routine Procedures Performed Operation Date: 11/29/24 07:00 Actual Procedures p Bronchoscopy,Endobronchial ultrasound with transbronchial biopsy, transbronchial needle aspiration, Bronchoalveolar lavage (Not Applicable) - Ta López MD, [facility] Diagnostic Imagining Performed 11/28/24 16:42 CT abd pelvis IV con only Stat CT angio chest PE protocol Stat Pending Results Patient Have Any Pending Studies at Discharge: No Discharge Instructions Given to Patient (Per Discharging Provider) At this point patient continue to remain on airborne isolation at correctional facility until his sputum culture for TB is resulted, if negative can be taken off isolation Patient will remain at the facility until he is called upon by oncology team to start chemotherapy if indicated Patient will remain at the facility until he is called by radiation oncology to start radiation treatment if indicated Patient to complete a course of antibiotic and Mucinex as I ordered Patient to remain on oxygen as needed to provide oxygen saturation above 93% His pain needs to be controlled as he is understandably having significant pain related to the metastatic appearing lung cancer Total Time Total Time Spent Total Time Spent (In Minutes): More than 35 minutes
[2024-12-04 09:53] VITALS: PULSE 83
== END 2024-12-04 13:57 | DRG 180 ==
LOC: ED 15:25 → EDINP 17:37 → SUATTDRO 17:37 → 2E 18:29

== ENCOUNTER 2024-12-15 14:25 | Inpatient (IN) ==
[2024-12-15 16:03] LABS: Basophils # (auto) 0.08 K/uL (0.00-0.20); Basophils % (auto) 0.4 %; Eosinophils # (auto) 0.68 K/uL (0.00-0.50); Eosinophils % (auto) 3.7 %; Hemoglobin 7.8 g/dl (14.0-18.0); Immature Granulocytes # (auto) 0.14 K/uL (0.01-0.20); Immature Granulocytes % (auto) 0.8 %; Lymphocytes % (auto) 9.1 %; Mean Corpuscular Hemoglobin 23.9 pg (25.0-34.0); Mean Corpuscular Hgb Conc 31.2 g/dL (32.0-36.0); Mean Corpuscular Volume 76.5 fL (80.0-100.0); Mean Platelet Volume 9.5 fL (9.4-12.4); Monocytes # (auto) 2.14 K/uL (0.11-0.59); Monocytes % (auto) 11.5 %; Neutrophils # (auto) 13.88 K/uL (1.40-6.50); Neutrophils % (auto) 74.5 %; Platelet Count 486 K/uL (130-400); RDW Coefficient of Variation 18.6 % (11.5-14.5); RDW Standard Deviation 50.9 fL (36.4-46.3); Red Blood Count 3.27 M/uL (4.70-6.10); White Blood Count 18.62 K/ul (4.8-10.8)
[2024-12-15 16:10] LABS: Alanine Aminotransferase 37 U/L (7-52); Albumin Globulin Ratio 0.7 (0.9-2); Albumin Level 3.2 gm/dl (3.4-5.0); Alkaline Phosphatase 192 U/L (34-104); Anion Gap 8 (3-11); Aspartate Aminotransferase 66 U/L (13-39); BUN Creatinine Ratio 41.8 (10-20); Bilirubin,Total 1.8 mg/dl (0.2-1.0); Blood Urea Nitrogen 41 mg/dl (6-23); Calcium 9.8 mg/dl (8.6-10.3); Carbon Dioxide 24 mmol/L (21-32); Chloride 101 mmol/L (98-107); Globulin 4.4 gm/dl (2.5-4.0); Glucose 107 mg/dl (70-99(Fasting)); Potassium 4.9 mmol/L (3.5-5.1); Sodium 133 mmol/L (136-145); Total Protein 7.6 gm/dl (6.0-8.3)
--- NOTE | 2024-12-15 16:13 | Emergency Department Note ---
Impression & Plan Anemia, Lung cancer, Mass of upper lobe of lung, Superior vena cava compression syndrome ED Provider Note NAME: GEE [id number] KARMA AGE: 64 SEX: M : 1960 ARRIVES VIA: Walk-In INFORMANT: Patient, ED PROVIDER(S): Frank Matthews DO CHIEF COMPLAINT: Anemia HPI: The patient is a 64-year-old male who presented to the emergency department for an evaluation of low hemoglobin. The patient's been experiencing weakness. The patient was recently diagnosed with lung cancer. He is getting chemotherapy. He was transfused while he was in our hospital. He has his hemoglobin checked as an outpatient and it was over 13. He presents today because his hemoglobin was now low again and the patient is having symptoms of cough and weakness. The patient denies having any black or tarry stools. He denies having any lower extremity swelling. ROS: See above HPI for pertinent positives & negatives. A total of 10 systems reviewed and were otherwise negative. PAST MEDICAL HISTORY: See Below PAST SURGICAL HISTORY: See Below FAMILY HISTORY: See Below SOCIAL HISTORY: See Below HOME MEDICATIONS: See Below ALLERGIES: See Below VITALS: See Below PHYSICAL EXAMINATION: GENERAL: Patient is awake alert in no acute distress patient is resting comfortably and showing no signs of anxiety EYES: The conjunctivae are clear. The pupils are round and reactive. EARS, NOSE, MOUTH AND THROAT: The nose is without any evidence of any deformity. NECK: The neck is nontender and supple. RESPIRATORY: Absent breath sounds are noted in the right upper lung field. CARDIOVASCULAR: Regular rate and rhythm noted there no murmurs rubs or gallops normal S1 normal S2. GASTROINTESTINAL: The abdomen is soft. Abdomen is nontender. MUSCULOSKELETAL/EXTREMITIES: There is no evidence of gross deformity full range of motion is noted in the hips and shoulders. SKIN: There is no obvious evidence of any rash. There was no significant pedal edema noted. NEUROLOGIC: Patient is awake alert and oriented x3 MEDICAL DECISION MAKING: The patient is a 64-year-old male who presented to the emergency department after outpatient labs showed his hemoglobin was low. The patient had labs drawn 2 days ago. They were forwarded today to the custodial and the patient was sent to the emergency department. He has a history of recently diagnosed with cancer of the lung. The patient had no abdominal tenderness. I discussed the patient's laboratory and radiographic studies with him. [facility] They have agreed to evaluate the patient in the emergency department. Patient was stable in the emergency department not requiring emergent transfusion. Triage Nursing notes reviewed. Prior medical records reviewed Vital Signs: reviewed and remarkable for no significant abnormalities Differential diagnosis: Infection, dehydration, metabolic abnormality, hypo/hyperglycemia, electrolyte disturbance, anemia, hypoxia, cardiac sources, intracerebral event, toxicologic, neurologic, as well as other pathologies. ER treatment provided: See below Diagnostics interpreted by me: ECG: EKG was obtained in the emergency department. My interpretation was normal sinus rhythm at 87 bpm. There was no ectopy. There was no acute ST segment abnormalities noted. This was compared to a tracing from November 28, 2024. No changes were noted. Cardiac Monitoring: An order was placed for continuous cardiac monitoring. The monitor shows a rate of 96 bpm with sinus rhythm. Laboratory studies: As stated above and show below. Imaging studies: See below. Radiographic imaging was reviewed by myself Consultation(s): I discussed this case with Ivette who is [facility]. Past Med/Surg History Problem List (Updated 12/15/24 @ 16:44 by Frank Matthews DO) Anemia (Acute) Cancer associated pain Lung cancer (Acute) Adenocarcinoma of left lung Hypertension, essential Hyperlipidemia Hyperlipidemia Anemia Pneumonia (Acute) Superior vena cava compression syndrome (Acute) Mass of upper lobe of lung (Acute) Medical History Hypertension Social History Smoking Status: Never smoker Tobacco Type: Cigarettes Hx Alcohol Use: No Hx Substance Use: No Preferred Language: Iranian Communication Ability: Unable Color Control Operator Required: No Beliefs That Will Affect Care: None Current Living Situation: Other Current Living Situation Comment: [facility] Feels Safe at Home: Yes Assistive Devices: None Allergies Allergies Allergy/AdvReac Type Severity Reaction Status Date / Time No Known Allergies Allergy Unverified 11/28/24 18:08 Home Meds Home Medications Medication Instructions Recorded Confirmed Vasotec 30 mg DAILY 11/28/24 11/28/24 atorvastatin 20 mg PO DAILY 11/28/24 11/28/24 labetalol 300 mg PO BID 11/28/24 11/28/24 Previous Rx's Medication Instructions Recorded doxycycline monohydrate 100 mg 100 mg PO BID #14 caps 12/04/24 capsule isosorbide mononitrate 30 mg 30 mg PO DAILY #30 tabs 12/04/24 tablet,extended release 24 hr oxycodone 5 mg tablet 5 mg PO Q4H PRN pain #30 tabs 12/04/24 Results & Data (ED) Vital Signs Vital Signs - 24 hr 12/15/24 14:45 Temperature 36.9 C Temperature Source Temporal Artery Scan Pulse Rate 91 H Respiratory Rate 12 Respiratory Effort / Characteristics Non-Labored Respiratory Depth Normal Respiratory Pattern Regular Blood Pressure 107/69 Blood Pressure Mean 81 Pulse Oximetry 95 Oxygen Delivery Method Room Air Sepsis Recent Fever Within 48 Hours No Sepsis New/Unexplained Change in Mental Status N/A Sepsis Action Taken by Nursing No Action Required Home Medications Current Medication List: was personally reviewed by me Laboratory Data Attestation: I reviewed the patient's lab results. 12/15/24 15:31 12/15/24 15:31 Lab Results 12/15/24 Range/Units 15:31 WBC 18.62 H (4.8-10.8) K/ul RBC 3.27 L (4.70-6.10) M/uL Hgb 7.8 L (14.0-18.0) g/dl Hct 25.0 L (42.0-52.0) % MCV 76.5 L (80.0-100.0) fL MCH 23.9 L (25.0-34.0) pg MCHC 31.2 L (32.0-36.0) g/dL RDW Std Deviation 50.9 H (36.4-46.3) fL RDW Coeff of Gerardo 18.6 H (11.5-14.5) % Plt Count 486 H (130-400) K/uL MPV 9.5 (9.4-12.4) fL Immature Gran % (Auto) 0.8 % Neut % (Auto) 74.5 % Lymph % (Auto) 9.1 % [place] % (Auto) 11.5 % Eos % (Auto) 3.7 % Baso % (Auto) 0.4 % Neut # (Auto) 13.88 H (1.40-6.50) K/uL Lymph # (Auto) 1.70 (1.20-3.40) K/uL [place] # (Auto) 2.14 H (0.11-0.59) K/uL Eos # (Auto) 0.68 H (0.00-0.50) K/uL Baso # (Auto) 0.08 (0.00-0.20) K/uL Immature Gran # (Auto) 0.14 (0.01-0.20) K/uL Polychromasia 1+ PT 15.0 H (9.0-12.0) Seconds INR 1.4 H (0.9-1.1) APTT 29 (21-31) Seconds PTT Ratio 1.1 Sodium 133 L (136-145) mmol/L Potassium 4.9 (3.5-5.1) mmol/L Chloride 101 (98-107) mmol/L Carbon Dioxide 24 (21-32) mmol/L Anion Gap 8 (3-11) BUN 41 H (6-23) mg/dl Creatinine 0.98 (0.6-1.4) mg/dl Est Cr Clr Drug Dosing Not Reportable eGFR 87.19 BUN/Creatinine Ratio 41.8 H (10-20) Glucose 107 H (70-99(Fasting)) mg/dl Calcium 9.8 (8.6-10.3) mg/dl Total Bilirubin 1.8 H (0.2-1.0) mg/dl AST 66 H (13-39) U/L ALT 37 (7-52) U/L Alkaline Phosphatase 192 H (34-104) U/L Total Protein 7.6 (6.0-8.3) gm/dl Albumin 3.2 L (3.4-5.0) gm/dl Globulin 4.4 H (2.5-4.0) gm/dl Albumin/Globulin Ratio 0.7 L (0.9-2) Blood Type A Positive Antibody Screen NEGATIVE Imaging Data Attestation: I personally reviewed and interpreted this imaging study as follows: My Impression: Chest x-ray was obtained in the emergency department. My interpretation is large right upper lobe mass, final report below. Radiologist's Impression: Chest X-Ray 12/15/24 16:05 Clinical History: Chest pain Technique: A frontal view of the chest was obtained Comparison is made to the prior examination dated 12/02/2024 Findings: Again seen is extensive right upper lobe and right midlung consolidation, with less severe right lung base infiltrate. The heart size is within normal limits. No definite left pleural effusion or pneumothorax is seen. There is a small right pleural effusion No fracture is noted. No foreign body is seen Impression: 1. Extensive right lung pneumonia. An underlying mass lesion cannot be excluded 2. Small right pleural effusion Electronically signed by Cash Kathleen 12-15-2024 4:43 PM Discharge Plan Visit Data Chief Complaint: Abnormal Labs/Diagnostic Testing Stated Complaint: HEMOGLOBIN IS LOW ED Provider: Frank Matthews Discharge Problem: Anemia, Lung cancer, Mass of upper lobe of lung, Superior vena cava compression syndrome Patient Disposition: Being Evaluated by Hospitalist Forms Stand Alone Forms: My [facility] Prescriptions Prescriptions: No Action atorvastatin 20 mg PO DAILY Vasotec 30 mg DAILY labetalol 300 mg PO BID oxycodone 5 mg tablet 5 mg PO Q4H PRN (Reason: pain) Qty: 30 0RF doxycycline monohydrate 100 mg capsule 100 mg PO BID Qty: 14 0RF isosorbide mononitrate 30 mg tablet extended release 24 hr 30 mg PO DAILY Qty: 30 0RF [facility] - Discharge Problem: Anemia Qualifiers: Anemia type: unspecified type Qualified Code(s): D64.9 - Anemia, unspecified Lung cancer Qualifiers: Laterality: right Lung location: upper lobe of lung Qualified Code(s): C34.11 - Malignant neoplasm of upper lobe, right bronchus or lung
[2024-12-15 16:26] LABS: INR 1.4 (0.9-1.1); Partial Thromboplastin Ratio 1.1; Partial Thromboplastin Time 29 Seconds (21-31)
[2024-12-15 16:37] LABS: Polychromasia 1+
--- NOTE | 2024-12-15 16:43 | XRay Report ---
Clinical History: Chest pain Technique: A frontal view of the chest was obtained Comparison is made to the prior examination dated 12/02/2024 Findings: Again seen is extensive right upper lobe and right midlung consolidation, with less severe right lung base infiltrate. The heart size is within normal limits. No definite left pleural effusion or pneumothorax is seen. There is a small right pleural effusion No fracture is noted. No foreign body is seen Impression: 1. Extensive right lung pneumonia. An underlying mass lesion cannot be excluded 2. Small right pleural effusion Electronically signed by Cash Kathleen 12-15-2024 4:43 PM
--- NOTE | 2024-12-15 16:54 | History & Physical Report ---
Date of Service December 15, 2024 Assessment & Plan (1) Anemia: (2) Lung cancer: (3) Cancer associated pain: Plan: Anemia secondary to malignancy Patient is 64 year old male with PMH HTN, dyslipidemia, HCV, tuberculosis, recently diagnosed lung cancer, anemia presented from [facility] to ER with c/o abnormal labs - low hemoglobin of 6.8 on outpatient labs on 12/13/24 and was sent in today for evaluation. 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 The RUL mass, transbronchial biopsy: Non-small cell carcinoma favor adenocarcinoma. During that hospitalization received 1 unit PRBC and IV Venofer and Hgb:7.8 on 12/04/24 on discharge day. Today in ER afebrile, P: 91, R: 12, BP 107/69, 95% on 2 L nasal cannula Today H/H: 7.8/ WBC: 18.6 Currently Hgb stable. Repeat CBC in am. Type and cross and hold PRBC at this time Low suspicion for recurrent pneumonia as pt afebrile, denies fever/chills, denies increased SOB Continued right sided CP likely from lung mass that pt feels not controlled at [facility]. Will give Tylenol, oxycodone, morphine prn pain. Pt will likely require medication adjustment at [facility] facility. Will need follow up with oncology (4) Hypertension, essential: Plan: BP stable Continue labetalol, enalapril DVT Prophylaxis SCDs for now Admit telemetry Full code as per discussion with pt Pt was seen and care coordinated with Dr Murray. See addendum I spent a total of 68 minutes reviewing notes, outpatient records, labs, medication, coordinating, documenting and providing care for this patient excluding time spent in the performance of separately billed services. History of Present Illness Chief Complaint: Anemia Primary Care Provider: [facility] Patient is 64 year old male with PMH HTN, dyslipidemia, HCV, tuberculosis, recently diagnosed lung cancer, anemia presented from [facility] to ER with c/o abnormal labs - low hemoglobin of 6.8 on outpatient labs on 12/13/24 and was sent in today for evaluation. 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 The RUL mass, transbronchial biopsy: Non-small cell carcinoma favor adenocarcinoma. During that hospitalization received 1 unit PRBC and IV Venofer and Hgb:7.8 on 12/04/24 on discharge day. He was also treated with cefepime and doxycycline for pneumonia and he was under isolation precautions while TB was being ruled out. Patient states continues to cough but not having hemoptysis since hospital [facility]. He reports having continued right sided chest pain. Bishop like when was in hospital right sided chest pain decreased and was being controlled better with pain medication. He states since being discharged feels like having right sided chest discomfort not controlled with his pain regimen at [facility]. He is unsure of what he has been receiving there. Hasn't followed up with outpatient oncology yet. He states has been using oxygen but unsure of how much. He reports that doesn't feel SOB while using oxygen. Denies fever/chills, diaphoresis, N/V/D/C, TOVAR, dizziness, syncope, neck pain, palpitations, abdominal pain, paresthesias, weakness, extremity edema, rashes, urinary symptoms. Allergies Allergy/AdvReac Type Severity Reaction Status Date / Time No Known Allergies Allergy Unverified 11/28/24 18:08 Home Medications Medication Instructions Recorded Confirmed Type enalapril maleate 10 mg tablet 10 mg PO DAILY 12/15/24 12/15/24 History enalapril maleate 20 mg tablet 20 mg PO DAILY 12/15/24 12/15/24 History labetalol 300 mg tablet 300 mg PO BID 12/15/24 12/15/24 History Past Med/Surg History Problem List (Updated 12/15/24 @ 16:44 by Frank Matthews DO) Anemia (Acute) Cancer associated pain Lung cancer (Acute) Adenocarcinoma of left lung Hypertension, essential Hyperlipidemia Hyperlipidemia Anemia Pneumonia (Acute) Superior vena cava compression syndrome (Acute) Mass of upper lobe of lung (Acute) Medical History Hypertension Social History Smoking Status: Current every day smoker Tobacco Type: Cigarettes Hx Alcohol Use: No Hx Substance Use: No Preferred Language: Nigerian Communication Ability: Effective Relief Worker Required: No Beliefs That Will Affect Care: None Current Living Situation: Other Current Living Situation Comment: [facility] Feels Safe at Home: Yes Assistive Devices: None Review of Systems Review of Systems: All systems reviewed & are unremarkable except as noted in Subjective Physical Exam Constitutional: WD/WN, vitals as above Eyes: PERRL, conjunctivae normal, anicteric sclerae ENMT: external ear and nose normal, oropharynx normal Neck: trachea midline, no thyromegaly Respiratory: Auscultation: + diminished lung sounds (more on the right) Cardiovascular: RRR, no murmur, no edema Chest (Breasts): Chest: normal inspection of chest Gastrointestinal (Abdomen): normal bowel sounds, soft, nontender, no hepatosplenomegaly Musculoskeletal: no cyanosis or clubbing, extremities motor strength 5/5 Skin: no rashes, warm and dry Neurologic: PERRL, EOMI, accommodation nl, no face palsy, no dysarthria Psychiatric: A+Ox3, euthymic affect Results & Data Results & Data Vital Signs (Past 12 Hours) Vital Signs Temp Pulse Resp BP Pulse Ox O2 Del Method 12/15/24 14:45 36.9 C 91 H 12 107/69 95 Room Air Laboratory Results labs reviewed - Hgb 7.8 WBC 18 K Supervising Physician Co-Signing Physician Notes Pt seen and examined by me, care coordinated with Jillian Ho PA-C, pls refer to her note above for further detail. 64 yo M with hx of HTN, dyslipidemia, HCV, tuberculosis, recently diagnosed lung cancer, anemia presented from [facility] to ER with c/o abnormal labs - low hemoglobin of 6.8 on outpatient labs on 12/13/24 and was sent in today for evaluation. 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 The RUL mass, transbronchial biopsy: Non-small cell carcinoma favor adenocarcinoma. During that hospitalization received 1 unit PRBC and IV Venofer and Hgb:7.8 on 12/04/24 on discharge day. He was also treated with cefepime and doxycycline for pneumonia and he was under isolation precautions while TB was being ruled out. Patient states continues to cough but not having hemoptysis since hospital discharge. He reports having continued right sided chest pain. Bishop like when was in hospital right sided chest pain decreased and was being controlled better with pain medication. He states since being discharged feels like having right sided chest discomfort not controlled with his pain regimen at [facility]. He is unsure of what he has been receiving there. Hasn't followed up with outpatient oncology yet. He states has been using oxygen but unsure of how much. He reports that doesn't feel SOB while using oxygen. Denies fever/chills. Pt is currently sitting up in bed in NAD, He is awake, alert, answers appropriately. Diminished lung sounds cindy. on the right. heart sounds regular. abdomen soft, nontender. moves extremities. Called [facility] and discussed Hgb findings, provider was concerned about low Hgb. Current Hgb 7.8 - stable from previous (on discharge). Will recheck H&H in AM. Pt concerned his pain is not as well controlled as it was in the hospital. At this point does not seem he needs abx, however monitor closely and if any further concern, recommend to consult pulmonary med again - pt seen by pulm. during the last admission. MD Terri (1) Anemia Anemia type: unspecified type Qualified Code(s): D64.9 - Anemia, unspecified (2) Lung cancer Laterality: right Lung location: upper lobe of lung Qualified Code(s): C34.11 - Malignant neoplasm of upper lobe, right bronchus or lung
[2024-12-15] MEDS ORDERED: SODIUM CHLORIDE 0.9% 100 ML IV PRN (17:53)
[2024-12-15] MEDS ORDERED: SODIUM CHLORIDE 0.9% 50 ML IV PRN (17:53)
[2024-12-15 18:03] LABS: Appearance Urine Cloudy (Clear); Bacteria Urine Automated None Seen (None Seen); Bilirubin Urine 1+ (Negative); Blood Urine Negative (Negative); Color Urine Dark Yellow; Glucose Urine UA Negative (Negative); Hyaline Casts Urine Present /lpf (None Presnt); Ketones Urine Negative (Negative); Leukocyte Esterase Urine Trace (Negative); Nitrite Urine Negative (Negative); Protein Urine 1+ (Negative); RBC Urine Automated 0-2 /hpf (0-2); Specific Gravity Urine 1.022 (1.000-1.030); Urobilinogen Urine Positive (Negative); WBC Urine Automated 0-5 /hpf (0-5)
[2024-12-15] MEDS ORDERED: MoRPHine SULFATE 4 MG/ML 1 ML CARP\\VIAL IV PRN (19:46)
[2024-12-15] MEDS ORDERED: NALOXONE HCL 0.4 MG/1 ML VIAL/CARP IV PRN (19:46)
[2024-12-15] MEDS ORDERED: oxyCODONE HCL IR 5 MG TAB (IMMEDIATE RELEASE) PO PRN (19:46)
[2024-12-15] MEDS ORDERED: POLYETHYLENE (MIRALAX) 17 GM PACK PO PRN (19:46)
[2024-12-15] MEDS: Patient's HEIGHT &/or WEIGHT Needed SCH (20:25)
[2024-12-15] MEDS: oxyCODONE HCL IR 5 MG TAB (IMMEDIATE RELEASE) PO PRN (20:30)
[2024-12-15] MEDS: DOCUSATE SODIUM/SENNA 50/8.6MG TAB PO SCH (21:14)
[2024-12-15] MEDS: LABETALOL HCL 300 MG TAB PO SCH (22:28)
[2024-12-16 07:04] LABS: Albumin Level 2.7 gm/dl (3.4-5.0); Bilirubin,Total 1.5 mg/dl (0.2-1.0); Calcium 9.2 mg/dl (8.6-10.3); Potassium 4.6 mmol/L (3.5-5.1)
[2024-12-16 07:10] LABS: Albumin Globulin Ratio 0.7 (0.9-2); BUN Creatinine Ratio 44.6 (10-20); Creatinine Clr Calc Pharmacy 92.3 ml/min; Globulin 3.8 gm/dl (2.5-4.0); Total Protein 6.5 gm/dl (6.0-8.3)
[2024-12-16 07:27] LABS: Hematocrit (blood only) 21.5 % (42.0-52.0); Hemoglobin 6.8 g/dl (14.0-18.0); Mean Corpuscular Hemoglobin 23.9 pg (25.0-34.0); Mean Corpuscular Hgb Conc 31.6 g/dL (32.0-36.0); Mean Corpuscular Volume 75.4 fL (80.0-100.0); Mean Platelet Volume 9.8 fL (9.4-12.4); Platelet Count 390 K/uL (130-400); RDW Coefficient of Variation 18.6 % (11.5-14.5); RDW Standard Deviation 49.6 fL (36.4-46.3); Red Blood Count 2.85 M/uL (4.70-6.10); White Blood Count 17.12 K/ul (4.8-10.8)
[2024-12-16 07:28] LABS: Basophils # (auto) 0.09 K/uL (0.00-0.20); Basophils % (auto) 0.5 %; Eosinophils # (auto) 0.62 K/uL (0.00-0.50); Eosinophils % (auto) 3.6 %; Hypochromasia Present; Immature Granulocytes # (auto) 0.11 K/uL (0.01-0.20); Immature Granulocytes % (auto) 0.6 %; Lymphocytes # (auto) 1.74 K/uL (1.20-3.40); Lymphocytes % (auto) 10.2 %; Microcytosis Present; Monocytes # (auto) 2.48 K/uL (0.11-0.59); Monocytes % (auto) 14.5 %; Neutrophils # (auto) 12.08 K/uL (1.40-6.50); Neutrophils % (auto) 70.6 %; Polychromasia 2+; Target Cells 1+
[2024-12-16] MEDS: ENALAPRIL MALEATE 10 MG TAB PO SCH (07:56)
[2024-12-16] MEDS ORDERED: ENALAPRIL MALEATE 10 MG TAB PO SCH (09:00)
[2024-12-16] MEDS ORDERED: SODIUM CHLORIDE 0.9% 50 ML IV PRN (10:28)
[2024-12-16] MEDS ORDERED: SODIUM CHLORIDE 0.9% 100 ML IV PRN (10:28)
--- NOTE | 2024-12-16 10:32 | Hospitalist Progress Note ---
Date of Service December 16, 2024 Assessment & Plan Admission and Anticipated Discharge Date Admission Date: December 15, 2024 Subjective Consented patient for blood, risks and benefits explained at length. Patient is agreeable to transfusion. Results & Data Results & Data Vital Signs (Past 12 Hours) Vital Signs Temp Pulse Pulse Resp BP Pulse Ox O2 Del Method 12/16/24 08:45 Nasal Cannula 12/16/24 07:33 37.9 C H 82 20 122/69 98 Room Air 12/16/24 07:20 83 12/16/24 03:39 37.2 C 80 16 126/78 97 Room Air O2 Flow Rate 12/16/24 08:45 2 12/16/24 07:33 12/16/24 07:20 12/16/24 03:39
[2024-12-16] MEDS: ACETAMINOPHEN 325 MG TAB PO PRN (11:16)
[2024-12-16] MEDS: levoFLOXacin 750 MG TAB PO SCH (12:23)
[2024-12-16] MEDS: AMOXICILLIN/CLAVULANATE 875 MG TAB PO SCH (12:23)
--- NOTE | 2024-12-16 14:18 | Hospitalist Progress Note ---
Date of Service December 16, 2024 Assessment & Plan (1) Anemia: Plan: -likely 2/2 malignancy, given symptoms and denying lost of blood elsewhere -other differential includes upper vs. 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, ECOG of 1 at this time Plan: -f/u with oncology outpatient (4) Cancer associated pain: Plan: -pain on right rib cage correlates with imaging of RUL mass -seems neuropathic in nature with nociceptive components Plan: -oxycodone 5mg for severe nociceptive pain -start pregablin 50 mg bid -if does not improve may need course of decadron given location of pain (5) Hypertension, essential: Plan: -BP stable -Continue labetalol, enalapril (6) Pneumonia: Plan: -has cough, given recent course of abx, concern that this pneumonia may be obstructive in nature -febrile as well today Plan: -start levofloxacin, augmentin given negative MRSA swab -plan for 10 day course Plan Feeding/fluids: regular Analgesia: oxy/pregab Sedation: na Thromboprophylaxis: SCD Head up position: 30 degrees Ulcer prophylaxis: na Glycemic control: na Spontaneous breathing trial: na Bowel care: miralax Indwelling catheter removal: na Deescalation of antibiotics: levofloxacin/augmentin I spent a total of 55 minutes coordinating, documenting, and providing care for this patient excluding time spent in the performance of separately billed services. Admission and Anticipated Discharge Date Admission Date: December 15, 2024 Subjective 64-year-old male with past medical history of adenocarcinoma of the left lung who presents for low hemoglobin at the correctional facility. Average hemoglobin level over the past few weeks has been around 7-8. Upon admission to medicine found to have hemoglobin of 6.8, consented patient for transfusion this morning. Patient seen and examined at bedside in the presence of correctional facility representatives. Patient states that he has felt tired for the past few days. Has not had any visible loss of blood in stool or any black stool. States he has been having some significant pain in his right rib cage. Describes pain as shooting neuropathic pain. Also states he has had a cough. Review of Systems Review of Systems: CONSTITUTIONAL: Patient denies fevers, chills, sweats and weight changes. EYES: Patient denies any visual symptoms. EARS, NOSE, AND THROAT: No difficulties with hearing. No symptoms of rhinitis or sore throat. CARDIOVASCULAR: Patient denies chest pains, palpitations, orthopnea and paroxysmal nocturnal dyspnea. RESPIRATORY: cough, right rib pain GI: No nausea, vomiting, diarrhea, constipation, abdominal pain, hematochezia or melena. : No urinary hesitancy or dribbling. No nocturia or urinary frequency. No abnormal urethral discharge. MUSCULOSKELETAL: fatigue NEUROLOGIC: No chronic headaches, no seizures. Patient denies numbness, tingling or weakness. PSYCHIATRIC: Patient denies problems with mood disturbance. No problems with anxiety. ENDOCRINE: No excessive urination or excessive thirst. DERMATOLOGIC: Patient denies any rashes or skin changes. Physical Exam Physical Exam: Gen: A&O 3 NAD HEENT: NCAT, EOMI, not icteric. External ears normal. No rhinorrhea. Moist mucous membranes. Neck: Supple, full range of motion, no observable masses, No meningeal sign. Lungs: No Respiratory distress. no wheezing or rhonchi noted CV: RRR, no edema. Abdomen: Soft, nondistended, No rebound tenderness. MSK: No joint swelling, no redness. Skin: No rashes, petechiae, lesions. Normal color per patient. Neuro: Normal Gait, Grossly intact. Psych: Appropriate for situation. Results & Data Results & Data Vital Signs (Past 12 Hours) Vital Signs Temp Pulse Pulse Resp BP BP Pulse Ox 12/16/24 12:51 37.1 C 77 18 112/71 97 12/16/24 11:51 37.4 C 77 114/71 97 12/16/24 11:21 37.2 C 75 18 113/70 97 12/16/24 11:06 37.2 C 78 20 110/79 96 12/16/24 11:03 37.2 C 78 20 110/69 96 12/16/24 10:49 37 C 78 20 114/70 98 12/16/24 08:45 12/16/24 07:33 37.9 C H 82 20 122/69 98 12/16/24 07:20 83 12/16/24 03:39 37.2 C 80 16 126/78 97 O2 Del Method O2 Flow Rate 12/16/24 12:51 12/16/24 11:51 12/16/24 11:21 12/16/24 11:06 2 12/16/24 11:03 2 12/16/24 10:49 12/16/24 08:45 Nasal Cannula 2 12/16/24 07:33 Room Air 12/16/24 07:20 12/16/24 03:39 Room Air Laboratory Results Laboratory Results WBC 17.12 K/ul (4.8-10.8) H 12/16/24 05:37 RBC 2.85 M/uL (4.70-6.10) L 12/16/24 05:37 Hgb 6.8 g/dl (14.0-18.0) L* 12/16/24 05:37 Hct 21.5 % (42.0-52.0) L 12/16/24 05:37 MCV 75.4 fL (80.0-100.0) L 12/16/24 05:37 MCH 23.9 pg (25.0-34.0) L 12/16/24 05:37 MCHC 31.6 g/dL (32.0-36.0) L 12/16/24 05:37 RDW Std Deviation 49.6 fL (36.4-46.3) H 12/16/24 05:37 RDW Coeff of Gerardo 18.6 % (11.5-14.5) H 12/16/24 05:37 Plt Count 390 K/uL (130-400) 12/16/24 05:37 MPV 9.8 fL (9.4-12.4) 12/16/24 05:37 Immature Gran % (Auto) 0.6 % 12/16/24 05:37 Neut % (Auto) 70.6 % 12/16/24 05:37 Lymph % (Auto) 10.2 % 12/16/24 05:37 [place] % (Auto) 14.5 % 12/16/24 05:37 Eos % (Auto) 3.6 % 12/16/24 05:37 Baso % (Auto) 0.5 % 12/16/24 05:37 Neut # (Auto) 12.08 K/uL (1.40-6.50) H 12/16/24 05:37 Lymph # (Auto) 1.74 K/uL (1.20-3.40) 12/16/24 05:37 [place] # (Auto) 2.48 K/uL (0.11-0.59) H 12/16/24 05:37 Eos # (Auto) 0.62 K/uL (0.00-0.50) H 12/16/24 05:37 Baso # (Auto) 0.09 K/uL (0.00-0.20) 12/16/24 05:37 Immature Gran # (Auto) 0.11 K/uL (0.01-0.20) 12/16/24 05:37 Polychromasia 2+ 12/16/24 05:37 Hypochromasia Present 12/16/24 05:37 Microcytosis Present 12/16/24 05:37 Target Cells 1+ 12/16/24 05:37 PT 15.0 Seconds (9.0-12.0) H 12/15/24 15:31 INR 1.4 (0.9-1.1) H 12/15/24 15:31 APTT 29 Seconds (21-31) 12/15/24 15:31 PTT Ratio 1.1 12/15/24 15:31 Sodium 133 mmol/L (136-145) L 12/16/24 05:37 Potassium 4.6 mmol/L (3.5-5.1) 12/16/24 05:37 Chloride 102 mmol/L (98-107) 12/16/24 05:37 Carbon Dioxide 23 mmol/L (21-32) 12/16/24 05:37 Anion Gap 8 (3-11) 12/16/24 05:37 BUN 37 mg/dl (6-23) H 12/16/24 05:37 Creatinine 0.83 mg/dl (0.6-1.4) 12/16/24 05:37 Est Cr Clr Drug Dosing 92.3 ml/min 12/16/24 05:37 eGFR 98.96 12/16/24 05:37 BUN/Creatinine Ratio 44.6 (10-20) H 12/16/24 05:37 Glucose 91 mg/dl (70-99(Fasting)) 12/16/24 05:37 Calcium 9.2 mg/dl (8.6-10.3) 12/16/24 05:37 Total Bilirubin 1.5 mg/dl (0.2-1.0) H 12/16/24 05:37 AST 54 U/L (13-39) H 12/16/24 05:37 ALT 30 U/L (7-52) 12/16/24 05:37 Alkaline Phosphatase 157 U/L (34-104) H 12/16/24 05:37 Total Protein 6.5 gm/dl (6.0-8.3) 12/16/24 05:37 Albumin 2.7 gm/dl (3.4-5.0) L 12/16/24 05:37 Globulin 3.8 gm/dl (2.5-4.0) 12/16/24 05:37 Albumin/Globulin Ratio 0.7 (0.9-2) L 12/16/24 05:37 Urine Color Dark Yellow 12/15/24 17:30 Urine Appearance Cloudy (Clear) A 12/15/24 17:30 Urine pH 5.0 (4.5-7.5) 12/15/24 17:30 Ur Specific [place] 1.022 (1.000-1.030) 12/15/24 17:30 Urine Protein 1+ (Negative) H 12/15/24 17:30 Urine Glucose (UA) Negative (Negative) 12/15/24 17:30 Urine Ketones Negative (Negative) 12/15/24 17:30 Urine Blood Negative (Negative) 12/15/24 17:30 Urine Nitrite Negative (Negative) 12/15/24 17:30 Urine Bilirubin 1+ (Negative) H 12/15/24 17:30 Urine Urobilinogen Positive (Negative) H 12/15/24 17:30 Ur Leukocyte Esterase Trace (Negative) H 12/15/24 17:30 Urine WBC (Auto) 0-5 /hpf (0-5) 12/15/24 17:30 Urine RBC (Auto) 0-2 /hpf (0-2) 12/15/24 17:30 U Hyaline Cast (Auto) 6-10 /lpf (0-2) H 12/15/24 17:30 U Epithel Cells (Auto) 6-10 /hpf (0-2) H 12/15/24 17:30 Urine Bacteria (Auto) None Seen (None Seen) 12/15/24 17:30 Hyaline Casts Present /lpf (None Presnt) A 12/15/24 17:30 Nasal Screen MRSA (PCR) Negative (Negative) 12/16/24 11:15 Blood Type A Positive 12/15/24 15:31 Antibody Screen NEGATIVE 12/15/24 15:31 Crossmatch See Detail 12/15/24 15:31 Impressions Chest X-Ray 12/15/24 16:05 Clinical History: Chest pain Technique: A frontal view of the chest was obtained Comparison is made to the prior examination dated 12/02/2024 Findings: Again seen is extensive right upper lobe and right midlung consolidation, with less severe right lung base infiltrate. The heart size is within normal limits. No definite left pleural effusion or pneumothorax is seen. There is a small right pleural effusion No fracture is noted. No foreign body is seen Impression: 1. Extensive right lung pneumonia. An underlying mass lesion cannot be excluded 2. Small right pleural effusion Electronically signed by Cash Kathleen 12-15-2024 4:43 PM (1) Anemia Anemia type: unspecified type Qualified Code(s): D64.9 - Anemia, unspecified (3) Lung cancer Laterality: right Lung location: upper lobe of lung Qualified Code(s): C34.11 - Malignant neoplasm of upper lobe, right bronchus or lung (6) Pneumonia Laterality: right Lung location: upper lobe of lung Pneumonia type: due to unspecified organism Qualified Code(s): J18.9 - Pneumonia, unspecified organism
[2024-12-16 17:52] LABS: Hematocrit (blood only) 26.2 % (42.0-52.0); Hemoglobin 8.3 g/dl (14.0-18.0); Mean Corpuscular Hemoglobin 24.8 pg (25.0-34.0); Mean Corpuscular Hgb Conc 31.7 g/dL (32.0-36.0); Mean Corpuscular Volume 78.2 fL (80.0-100.0); Mean Platelet Volume 9.1 fL (9.4-12.4); Platelet Count 375 K/uL (130-400); RDW Coefficient of Variation 19.4 % (11.5-14.5); RDW Standard Deviation 54.6 fL (36.4-46.3); Red Blood Count 3.35 M/uL (4.70-6.10); White Blood Count 19.07 K/ul (4.8-10.8)
[2024-12-16] MEDS: oxyCODONE HCL IR 5 MG TAB (IMMEDIATE RELEASE) PO PRN (19:31)
[2024-12-16] MEDS: PREGABALIN 50 MG CAP PO SCH (20:15)
[2024-12-16] MEDS ORDERED: LINEZOLID 600 MG TAB PO SCH (21:00)
--- NOTE | 2024-12-16 21:57 | Electrocardiogram Report ---
Test Reason : Blood Pressure : */* mmHG Vent. Rate : 87 BPM Atrial Rate : 87 BPM P-R Int : 138 ms QRS Dur : 74 ms QT Int : 352 ms P-R-T Axes : 76 15 80 degrees QTcB Int : 423 ms Normal sinus rhythm Normal ECG When compared with ECG of 28-Nov-2024 15:36, No significant change was found Confirmed by Jesse Murcia ([id number]) on 12/16/2024 9:57:12 PM Referred By: Confirmed By: Jesse Murcia
[2024-12-16] MEDS: HYDROmorphone INJ 0.5 MG/0.5 ML SYR IV STA (22:47)
[2024-12-17 05:00] LABS: Hematocrit (blood only) 26.9 % (42.0-52.0); Hemoglobin 8.6 g/dl (14.0-18.0); Mean Corpuscular Hemoglobin 24.9 pg (25.0-34.0); Mean Platelet Volume 9.1 fL (9.4-12.4); Platelet Count 401 K/uL (130-400); RDW Standard Deviation 53.7 fL (36.4-46.3); Red Blood Count 3.45 M/uL (4.70-6.10); White Blood Count 18.59 K/ul (4.8-10.8)
[2024-12-17 05:10] LABS: BUN Creatinine Ratio 39.8 (10-20); Calcium 9.2 mg/dl (8.6-10.3); Potassium 4.6 mmol/L (3.5-5.1)
--- NOTE | 2024-12-17 08:34 | XRay Report ---
EXAM: XR chest 1V portable CLINICAL HISTORY: WORSENING HYPOXIA, PULM EDEMA VS IMFILTRATES LDS TECHNIQUE: An X-ray image of the chest is obtained in AP projection. COMPARISON: Prior study dated 12/15/2024 FINDINGS: Pulmonary Parenchyma: Near total opacification of right hemithorax seen. Left Lung is clear bilaterally. No evidence of left pleural effusion or pleural thickening. Heart and Mediastinum: Heart size and shape are normal. No mediastinal widening or masses. No hilar or mediastinal lymphadenopathy. Bony Thorax: Bony thorax appears intact without fractures or deformities. Soft Tissues: Soft tissues overlying the chest wall are unremarkable. IMPRESSION: Near total opacification of right hemithorax seen (progressive course), could be massive effusion, with possible mass, CT is needed. Electronically signed by Myron Shah 12-17-2024 08:34 AM
[2024-12-17] MEDS: OPTIRAY 320 100ml IV ONE (12:26)
--- NOTE | 2024-12-17 13:16 | CT Scan Report ---
CT chest diagnostic w con CLINICAL HISTORY: complete opacification right lung, NSCLC TECHNIQUE: Multidetector row helical CT of the chest was performed with intravenous contrast. Coronal and sagittal reformations were obtained. Automated dose lowering techniques and/or adjustment accord ing to patient size were utilized for this exam. CT DOSE: 618.95 mGy.cm Comparison: Comparison is made to CT chest 11/28/2024 FINDINGS: Lungs and pleura: There is interval enlargement of a heterogeneous right upper lung mass with surroun ding pulmonary opacities. Although its contours are obscured, it measures roughly 11.5 cm compared to 7 cm on the prior exam. There is also a small right pleural effusion. Collectively this results in n early total opacification of the right hemithorax. The left lung is clear. Heart and pericardium: Heart size is normal. No pericardial effusion. Vessels: Unremarkable. Mediastinum and yesi: Unremarkable. Chest wall and lower neck: Unremarkable. Abdomen: Prominent hypodensity in the liver is partially visualized, grossly stable to minimally incr eased from prior exam. Bones: Unremarkable. IMPRESSION: Interval opacification of the right hemithorax secondary to enlargement of the right upper lung mass, surrounding airspace opacity, and small right pleural effusion. ACT 112: Negative or not required by law. Electronically signed by: Alphonso Diego M.D. 12/17/2024 12:49 PM
--- NOTE | 2024-12-17 16:26 | Hospitalist Progress Note ---
Date of Service December 17, 2024 Assessment & Plan (1) Anemia: Plan: -likely 2/2 malignancy, given symptoms and denying lost of blood elsewhere -other differential includes upper vs. lower GI bleed, anemia of chronic disease, nutritional deficiencies -received IV venofer during last admission, received one unit of blood today Plan: -Hgb goal>7 (2) Acute hypoxic respiratory failure: Plan: -see below, 2/2 malignancy and possible post obstructive pneumonia -of note, xray this morning revealed significant right lung opacities, f/u CT concern for lung collapse and bronchial obstruction -respiratory culture growing gram negative and positive organisms -given the above, likely necrotic malignancy tissue is impeding bronchus vs. abscess vs. severe pneumonia vs. 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, ECOG of 1 at this time -given possible impending bronchial collapse, concern prognosis is poor Plan: -will follow up with pulmonary -pending results of above, will discuss with oncology next steps (4) Cancer associated pain: Plan: -pain on right rib cage correlates with imaging of RUL mass -seems neuropathic in nature with nociceptive components -pain feels improved today Plan: -oxycodone 5mg for severe nociceptive pain -continue pregablin 50 mg bid (5) Hypertension, essential: Plan: -BP stable -Continue labetalol, enalapril (6) Pneumonia: Plan: -has cough, given recent course of abx, concern that this pneumonia may be obstructive in nature -febrile as well today Plan: -see above Plan Feeding/fluids: regular Analgesia: oxy/pregab Sedation: na Thromboprophylaxis: SCD Head up position: 30 degrees Ulcer prophylaxis: na Glycemic control: na Spontaneous breathing trial: na Bowel care: miralax Indwelling catheter removal: na Deescalation of antibiotics: levofloxacin/augmentin I spent a total of 50 minutes coordinating, documenting, and providing care for this patient excluding time spent in the performance of separately billed services. Admission and Anticipated Discharge Date Admission Date: December 15, 2024 Subjective patient seen and examined at bedside. It was noted and vitals overnight per nursing the patient was on room air, however that was not true and patient is on 3 L. Had conversation with patient regarding hypoxia. Patient continues to feel short of breath. Does not feel improved. Discussed going back to correctional facility once he is improved Review of Systems Review of Systems: CONSTITUTIONAL: fatigue, weakness EYES: Patient denies any visual symptoms. EARS, NOSE, AND THROAT: No difficulties with hearing. No symptoms of rhinitis or sore throat. CARDIOVASCULAR: Patient denies chest pains, palpitations, orthopnea and paroxysmal nocturnal dyspnea. RESPIRATORY: shortness of breath GI: No nausea, vomiting, diarrhea, constipation, abdominal pain, hematochezia or melena. : No urinary hesitancy or dribbling. No nocturia or urinary frequency. No abnormal urethral discharge. MUSCULOSKELETAL: No myalgias or arthralgias. NEUROLOGIC: No chronic headaches, no seizures. Patient denies numbness, tingling or weakness. PSYCHIATRIC: Patient denies problems with mood disturbance. No problems with an xiety. ENDOCRINE: No excessive urination or excessive thirst. DERMATOLOGIC: Patient denies any rashes or skin changes. Physical Exam Physical Exam: Gen: A&O 3 NAD HEENT: NCAT, EOMI, not icteric. External ears normal. No rhinorrhea. Moist mucous membranes. Neck: Supple, full range of motion, no observable masses, No meningeal sign. Lungs: No Respiratory distress. no wheezing or rhonchi noted CV: RRR, no edema. Abdomen: Soft, nondistended, No rebound tenderness. MSK: No joint swelling, no redness. Skin: No rashes, petechiae, lesions. Normal color per patient. Neuro: Normal Gait, Grossly intact. Psych: Appropriate for situation. Results & Data Results & Data Vital Signs (Past 12 Hours) Vital Signs Temp Pulse Pulse Resp BP Pulse Ox O2 Del Method 12/17/24 16:11 37.3 C 94 H 20 134/78 94 Nasal Cannula 12/17/24 14:08 83 12/17/24 11:18 37.2 C 80 20 127/73 97 Nasal Cannula 12/17/24 08:10 Room Air 12/17/24 07:32 36.8 C 75 20 105/71 98 Nasal Cannula 12/17/24 07:00 74 O2 Flow Rate 12/17/24 16:11 3 12/17/24 14:08 12/17/24 11:18 3 12/17/24 08:10 12/17/24 07:32 3 12/17/24 07:00 Laboratory Results Laboratory Results WBC 18.59 K/ul (4.8-10.8) H 12/17/24 04:22 RBC 3.45 M/uL (4.70-6.10) L 12/17/24 04:22 Hgb 8.6 g/dl (14.0-18.0) L 12/17/24 04:22 Hct 26.9 % (42.0-52.0) L 12/17/24 04:22 MCV 78.0 fL (80.0-100.0) L 12/17/24 04:22 MCH 24.9 pg (25.0-34.0) L 12/17/24 04:22 MCHC 32.0 g/dL (32.0-36.0) 12/17/24 04:22 RDW Std Deviation 53.7 fL (36.4-46.3) H 12/17/24 04:22 RDW Coeff of Gerardo 19.0 % (11.5-14.5) H 12/17/24 04:22 Plt Count 401 K/uL (130-400) H 12/17/24 04:22 MPV 9.1 fL (9.4-12.4) L 12/17/24 04:22 Immature Gran % (Auto) 0.6 % 12/16/24 05:37 Neut % (Auto) 70.6 % 12/16/24 05:37 Lymph % (Auto) 10.2 % 12/16/24 05:37 [place] % (Auto) 14.5 % 12/16/24 05:37 Eos % (Auto) 3.6 % 12/16/24 05:37 Baso % (Auto) 0.5 % 12/16/24 05:37 Neut # (Auto) 12.08 K/uL (1.40-6.50) H 12/16/24 05:37 Lymph # (Auto) 1.74 K/uL (1.20-3.40) 12/16/24 05:37 [place] # (Auto) 2.48 K/uL (0.11-0.59) H 12/16/24 05:37 Eos # (Auto) 0.62 K/uL (0.00-0.50) H 12/16/24 05:37 Baso # (Auto) 0.09 K/uL (0.00-0.20) 12/16/24 05:37 Immature Gran # (Auto) 0.11 K/uL (0.01-0.20) 12/16/24 05:37 Polychromasia 2+ 12/16/24 05:37 Hypochromasia Present 12/16/24 05:37 Microcytosis Present 12/16/24 05:37 Target Cells 1+ 12/16/24 05:37 PT 15.0 Seconds (9.0-12.0) H 12/15/24 15:31 INR 1.4 (0.9-1.1) H 12/15/24 15:31 APTT 29 Seconds (21-31) 12/15/24 15:31 PTT Ratio 1.1 12/15/24 15:31 Sodium 131 mmol/L (136-145) L 12/17/24 04:22 Potassium 4.6 mmol/L (3.5-5.1) 12/17/24 04:22 Chloride 102 mmol/L (98-107) 12/17/24 04:22 Carbon Dioxide 22 mmol/L (21-32) 12/17/24 04:22 Anion Gap 7 (3-11) 12/17/24 04:22 BUN 35 mg/dl (6-23) H 12/17/24 04:22 Creatinine 0.88 mg/dl (0.6-1.4) 12/17/24 04:22 Est Cr Clr Drug Dosing 87.0 ml/min 12/17/24 04:22 eGFR 97.22 12/17/24 04:22 BUN/Creatinine Ratio 39.8 (10-20) H 12/17/24 04:22 Glucose 101 mg/dl (70-99(Fasting)) H 12/17/24 04:22 Calcium 9.2 mg/dl (8.6-10.3) 12/17/24 04:22 Iron 14 mcg/dl (35-175) L 12/16/24 05:37 Unsaturated IBC 124 mcg/dl (155-355) L 12/16/24 05:37 Ferritin 1552.0 ng/ml (8-388) H 12/16/24 05:37 Total Bilirubin 1.5 mg/dl (0.2-1.0) H 12/16/24 05:37 AST 54 U/L (13-39) H 12/16/24 05:37 ALT 30 U/L (7-52) 12/16/24 05:37 Alkaline Phosphatase 157 U/L (34-104) H 12/16/24 05:37 Total Protein 6.5 gm/dl (6.0-8.3) 12/16/24 05:37 Albumin 2.7 gm/dl (3.4-5.0) L 12/16/24 05:37 Globulin 3.8 gm/dl (2.5-4.0) 12/16/24 05:37 Albumin/Globulin Ratio 0.7 (0.9-2) L 12/16/24 05:37 Vitamin B12 350 pg/ml (180-914) 12/16/24 05:37 Urine Color Dark Yellow 12/15/24 17:30 Urine Appearance Cloudy (Clear) A 12/15/24 17:30 Urine pH 5.0 (4.5-7.5) 12/15/24 17:30 Ur Specific [place] 1.022 (1.000-1.030) 12/15/24 17:30 Urine Protein 1+ (Negative) H 12/15/24 17:30 Urine Glucose (UA) Negative (Negative) 12/15/24 17:30 Urine Ketones Negative (Negative) 12/15/24 17:30 Urine Blood Negative (Negative) 12/15/24 17:30 Urine Nitrite Negative (Negative) 12/15/24 17:30 Urine Bilirubin 1+ (Negative) H 12/15/24 17:30 Urine Urobilinogen Positive (Negative) H 12/15/24 17:30 Ur Leukocyte Esterase Trace (Negative) H 12/15/24 17:30 Urine WBC (Auto) 0-5 /hpf (0-5) 12/15/24 17:30 Urine RBC (Auto) 0-2 /hpf (0-2) 12/15/24 17:30 U Hyaline Cast (Auto) 6-10 /lpf (0-2) H 12/15/24 17:30 U Epithel Cells (Auto) 6-10 /hpf (0-2) H 12/15/24 17:30 Urine Bacteria (Auto) None Seen (None Seen) 12/15/24 17:30 Hyaline Casts Present /lpf (None Presnt) A 12/15/24 17:30 Nasal Screen MRSA (PCR) Negative (Negative) 12/16/24 11:15 Blood Type A Positive 12/15/24 15:31 Antibody Screen NEGATIVE 12/15/24 15:31 Crossmatch See Detail 12/15/24 15:31 Impressions Chest X-Ray 12/17/24 07:10 EXAM: XR chest 1V portable CLINICAL HISTORY: WORSENING HYPOXIA, PULM EDEMA VS IMFILTRATES LDS TECHNIQUE: An X-ray image of the chest is obtained in AP projection. COMPARISON: Prior study dated 12/15/2024 FINDINGS: Pulmonary Parenchyma: Near total opacification of right hemithorax seen. Left Lung is clear bilaterally. No evidence of left pleural effusion or pleural thickening. Heart and Mediastinum: Heart size and shape are normal. No mediastinal widening or masses. No hilar or mediastinal lymphadenopathy. Bony Thorax: Bony thorax appears intact without fractures or deformities. Soft Tissues: Soft tissues overlying the chest wall are unremarkable. IMPRESSION: Near total opacification of right hemithorax seen (progressive course), could be massive effusion, with possible mass, CT is needed. Electronically signed by Myron Shah 12-17-2024 08:[address] 12/17/24 11:39 CT chest diagnostic w con CLINICAL HISTORY: complete opacification right lung, NSCLC TECHNIQUE: Multidetector row helical CT of the chest was performed with intravenous contrast. Coronal and sagittal reformations were obtained. Automated dose lowering techniques and/or adjustment according to patient size were utilized for this exam. CT DOSE: 618.95 mGy.cm Comparison: Comparison is made to CT chest 11/28/2024 FINDINGS: Lungs and pleura: There is interval enlargement of a heterogeneous right upper lung mass with surrounding pulmonary opacities. Although its contours are ob scured, it measures roughly 11.5 cm compared to 7 cm on the prior exam. There is also a small right pleural effusion. Collectively this results in nearly total opacification of the right hemithorax. The left lung is clear. Heart and pericardium: Heart size is normal. No pericardial effusion. Vessels: Unremarkable. Mediastinum and yesi: Unremarkable. Chest wall and lower neck: Unremarkable. Abdomen: Prominent hypodensity in the liver is partially visualized, grossly stable to minimally increased from prior exam. Bones: Unremarkable. IMPRESSION: Interval opacification of the right hemithorax secondary to enlargement of the right upper lung mass, surrounding airspace opacity, and small right pleural effusion. ACT 112: Negative or not required by law. Electronically signed by: Alphonso Diego M.D. 12/17/2024 12:49 PM (1) Anemia Anemia type: unspecified type Qualified Code(s): D64.9 - Anemia, unspecified (3) Lung cancer Laterality: right Lung location: upper lobe of lung Qualified Code(s): C34.11 - Malignant neoplasm of upper lobe, right bronchus or lung (6) Pneumonia Laterality: right Lung location: upper lobe of lung Pneumonia type: due to unspecified organism Qualified Code(s): J18.9 - Pneumonia, unspecified organism
[2024-12-17] MEDS: LIDOCAINE 5% 1 PATCH TD STA (18:21)
[2024-12-17] MEDS: PREGABALIN 75 MG CAP PO SCH (20:12)
[2024-12-18 06:25] LABS: Hematocrit (blood only) 27.3 % (42.0-52.0); Hemoglobin 8.5 g/dl (14.0-18.0); Mean Corpuscular Hemoglobin 24.4 pg (25.0-34.0); Mean Corpuscular Hgb Conc 31.1 g/dL (32.0-36.0); Mean Corpuscular Volume 78.4 fL (80.0-100.0); Mean Platelet Volume 9.8 fL (9.4-12.4); Platelet Count 401 K/uL (130-400); RDW Coefficient of Variation 19.5 % (11.5-14.5); RDW Standard Deviation 54.8 fL (36.4-46.3); Red Blood Count 3.48 M/uL (4.70-6.10)
[2024-12-18] MEDS: ONDANSETRON INJ 2 MG/ML 2 ML VIAL IV PRN (06:33)
[2024-12-18] MEDS: HYDROmorphone INJ 0.5 MG/0.5 ML SYR IV STA (06:33)
[2024-12-18 06:53] LABS: Calcium 9.5 mg/dl (8.6-10.3); Creatinine Clr Calc Pharmacy 83.3 ml/min
--- NOTE | 2024-12-18 10:55 | Pulmonary Consultation ---
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 Stenting the right mainstem bronchus or ablating the tumor would likely not lead to much benefit as most of the right lung tissue has been taken over by necrotic tumor. There also appears to be a small right pleural effusion. Ultrasound performed by me demonstrated that draining the effusion was unlikely going to change his symptomology given that it is loculated and small at this time. He also has very significant metastatic disease in his abdomen and a severely enlarged right adrenal gland. Suggest ongoing goals of care discussion and potential transition to comfort measures only given the extent of disease burden. Would also recommend engaging with hematology/oncology if not already done so and to discuss any potential treatment options. However, it should be understood that his disease process is essentially terminal given the extent of metastatic cancer. Thank you for the consult. Will follow on the periphery on an as-needed basis. Please call with questions. History of Present Illness Reason for Consultation: Metastatic adenocarcinoma of the lung Attending Physician: Christiano Blanchard MD History of Present Illness 64-year-old male who is incarcerated with a previous history of tobacco abuse who presented to the hospital in October due to hemoptysis and shortness of breath. He was found to have postobstructive pneumonia and a large mass measuring 12.4 cm. He underwent biopsy by my colleague Dr. López which revealed metastatic non-small cell cancer favoring adenocarcinoma. Unclear whether the patient had any significant discussion with oncology regarding his goals of care and treatment options. He presented back to the hospital due to worsening shortness of breath and weakness. Repeat CT chest completed 12/17/2024 revealed interval opacification of the right hemithorax secondary to an enlarging right upper lobe mass with occlusion of the right mainstem bronchus. There is also evidence of a small right pleural effusion which I performed an ultrasound on and appear to be a loculated right-sided effusion. Patient complains of pleurisy and chest discomfort in general. He has dyspnea with minimal exertion. He is on low-flow oxygen at present time. He understands that he has metastatic cancer which is terminal. He does have a history of extensive tobacco abuse. Allergies Allergy/AdvReac Type Severity Reaction Status Date / Time No Known Allergies Allergy Unverified 11/28/24 18:08 Home Medications Medication Instructions Recorded Confirmed Type enalapril maleate 10 mg tablet 10 mg PO DAILY 12/15/24 12/15/24 History enalapril maleate 20 mg tablet 20 mg PO DAILY 12/15/24 12/15/24 History labetalol 300 mg tablet 300 mg PO BID 12/15/24 12/15/24 History Patient History Medical History (Updated 12/18/24 @ 11:07 by Masoud Alex MD) Hypertension Social History Smoking Status: Current every day smoker Tobacco Type: Cigarettes Hx Alcohol Use: No Hx Substance Use: No Preferred Language: Croatian Communication Ability: Effective Lead Radiologic Technologist Required: No Beliefs That Will Affect Care: None Current Living Situation: Other Current Living Situation Comment: [facility] Feels Safe at Home: Yes Assistive Devices: None Review of Systems Review of Systems: All systems reviewed & are unremarkable except as noted in HPI & below Physical Exam Physical Exam: Constitutional: Patient appears to be of their stated age. Patient is in no apparent distress. Patient is well-developed. Eyes: Pupils are equal round and reactive to light. Conjunctivae are normal. Anicteric sclera. Ears nose, mouth and throat: Mallampati class 1. Normal posterior oropharynx. Uvula is midline. Neck: Trachea is midline. Visual inspection is normal. Respiratory: Minimal breath sounds on the right with significant diminished at the right lung base with occasional crackles. Left lung appears clear. No increased work of breathing at rest. Cardiovascular: Regular rate and rhythm. No murmurs. No edema. Gastrointestinal: Normal bowel sounds, soft, nontender and nondistended. No hepatosplenomegaly noted. Musculoskeletal: No cyanosis. Patient is able to move all extremities. Strength is 5 out of 5 in the upper and lower extremities. Skin: No rashes, warm dry and intact. Neurologic: No obvious focal neurological deficits seen. Psychiatric: Alert and oriented x3 with a euthymic affect. Results & Data Results & Data Vital Signs (Past 12 Hours) Vital Signs Temp Pulse Pulse Resp BP Pulse Ox O2 Del Method 12/18/24 09:00 37.1 C 102 H 20 119/78 95 Nasal Cannula 12/18/24 08:05 Nasal Cannula 12/18/24 07:30 37.2 C 102 H 18 97/68 L 95 Nasal Cannula 12/18/24 07:00 100 H 12/18/24 06:01 37.3 C 12/18/24 05:18 37.9 C H 12/18/24 03:15 37.5 C 100 H 18 146/83 H 96 Nasal Cannula 12/18/24 02:40 99 H 12/17/24 23:06 37.6 C H 99 H 18 117/78 96 Nasal Cannula O2 Flow Rate 12/18/24 09:00 3 12/18/24 08:05 3 12/18/24 07:30 3 12/18/24 07:00 12/18/24 06:01 12/18/24 05:18 12/18/24 03:15 3 12/18/24 02:40 12/17/24 23:06 3 PG Care Time/CCT Total # of Minutes Spent Total Time Spent with Patient: Total time spent is greater than 50% in coordination of care (as documented) at patient's floor/unit and/or counseling patient: Coding Level of Care Code 45208 INT INP/OBS CARE 2/55MIN Diagnoses Mass of right lung R91.8 Metastatic malignant neoplasm to adrenal gland C79.70 Superior vena cava compression syndrome I87.1 Pleural effusion J90
[2024-12-18] MEDS ORDERED: ONDANSETRON INJ 2 MG/ML 2 ML VIAL IV PRN (11:46)
[2024-12-18] MEDS ORDERED: LORazepam 2 MG/1 ML VIAL IV PRN (11:46)
--- NOTE | 2024-12-18 11:58 | Hospitalist Progress Note ---
Date of Service December 18, 2024 Assessment & Plan (1) Anemia: Plan: -likely 2/2 malignancy, given symptoms and denying lost of blood elsewhere -other differential includes upper vs. lower GI bleed, anemia of chronic disease, nutritional deficiencies -received IV venofer during last admission, received one unit of blood today Plan: -comfort care (2) Acute hypoxic respiratory failure: Plan: -see below, 2/2 malignancy and possible post obstructive pneumonia -of note, xray this morning revealed significant right lung opacities, f/u CT concern for lung collapse and bronchial obstruction -respiratory culture growing gram negative and positive organisms -given the above, likely necrotic malignancy tissue is impeding bronchus vs. abscess vs. severe pneumonia vs. pleural effusion Plan: -appreciate pulmonary assistance -oxygen, goal 92% sat -IS and flutter valve ordered -continue levofloxacin/augmentin for now, continue on comfort care (3) Lung cancer: Plan: -The RUL mass, transbronchial biopsy Non-small cell carcinoma favor adenocarcinoma -metastatic disease to adrenals, ECOG of 1 at this time -given possible impending bronchial collapse, concern prognosis is poor -discussed prognosis of weeks to months with patient, appreciate pulmonary assistance Plan: -comfort focused care -will discuss with correctional facility next steps and options for hospice care (4) Cancer associated pain: Plan: -pain on right rib cage correlates with imaging of RUL mass -seems neuropathic in nature with nociceptive components -pain does not seem to be improving, bone pain component noted Plan: -stop oxycodone, start dilaudid 4mg PO q3hrs prn for severe pain with dilaudid 1mg IV for breakthrough pain -continue pregablin 75 tid for neuropathic pain -start decadron 4mg for capsular and bone pain, fatigue and weakness (5) Hypertension, essential: Plan: -BP stable -Continue labetalol, enalapril (6) Pneumonia: Plan: -has cough, given recent course of abx, concern that this pneumonia may be obstructive in nature -febrile as well today Plan: -see above Plan I spent a total of 60 minutes coordinating, documenting, and providing care for this patient excluding time spent in the performance of separately billed services. I spent 35 minutes discussing advanced care planning, goals and values with patient. Admission and Anticipated Discharge Date Admission Date: December 17, 2024 Subjective Patient seen and examined at bedside. Patient is not feeling well today. Feels short of breath and in pain. Pulmonary consult reviewed and discussed with pulmonary attending. Patient has significant and fast-growing malignancy that has a advanced even the past 2 weeks. Patient has not necrotic cancer related tissue invading the right amy nstem bronchus and taking over the whole right lung. No possible interventions available from pulmonary that would not have more harm than benefit. Given the rate of decline over the past 2 weeks and worsening malignancy in the right lung, I discussed goals and values with the patient. Patient states his primary goal is to not suffer. When asked about prognosis, given the rate of decline and advanced malignancy, I stated that his prognosis is likely on the scale of weeks to months regardless of intervention. Patient is unlikely to be able to tolerate chemotherapy given advanced malignancy. 2 options were offered to the patient. 1 option is to continue medical care and interventions with the understanding that he will likely continue to decline and it will not likely prolong his life meaningfully. It would also involve some suffering likely. Other option is to focus on symptom management and comfort, treating symptoms rather than the underlying illness. patient states that he does not want to suffer and would like to focus on his comfort at this time. Discussed option of hospice at length, patient had experience with hospice with his mother. Patient's CODE STATUS is DNR DNI comfort care at this point. In line with patient wishes. Review of Systems Review of Systems: CONSTITUTIONAL: fatigue, weakness EYES: Patient denies any visual symptoms. EARS, NOSE, AND THROAT: No difficulties with hearing. No symptoms of rhinitis or sore throat. CARDIOVASCULAR: Patient denies chest pains, palpitations, orthopnea and paroxysmal nocturnal dyspnea. RESPIRATORY: shortness of breath GI: No nausea, vomiting, diarrhea, constipation, abdominal pain, hematochezia or melena. : No urinary hesitancy or dribbling. No nocturia or urinary frequency. No abnormal urethral discharge. MUSCULOSKELETAL: No myalgias or arthralgias. Pain NEUROLOGIC: No chronic headaches, no seizures. Patient denies numbness, tingling or weakness. PSYCHIATRIC: Patient denies problems with mood disturbance. No problems with anxiety. ENDOCRINE: No excessive urination or excessive thirst. DERMATOLOGIC: Patient denies any rashes or skin changes. Physical Exam Physical Exam: Gen: A&O 3 NAD HEENT: NCAT, EOMI, not icteric. External ears normal. No rhinorrhea. Moist mucous membranes. Neck: Supple, full range of motion, no observable masses, No meningeal sign. Lungs: No Respiratory distress. no wheezing or rhonchi noted CV: RRR, no edema. Abdomen: Soft, nondistended, No rebound tenderness. MSK: No joint swelling, no redness. Skin: No rashes, petechiae, lesions. Normal color per patient. Neuro: Normal Gait, Grossly intact. Psych: Appropriate for situation. Results & Data Results & Data Vital Signs (Past 12 Hours) Vital Signs Temp Pulse Pulse Resp BP Pulse Ox O2 Del Method 12/18/24 11:32 37.0 C 81 20 110/67 96 Room Air 12/18/24 09:00 37.1 C 102 H 20 119/78 95 Nasal Cannula 12/18/24 08:05 Nasal Cannula 12/18/24 07:30 37.2 C 102 H 18 97/68 L 95 Nasal Cannula 12/18/24 07:00 100 H 12/18/24 06:01 37.3 C 12/18/24 05:18 37.9 C H 12/18/24 03:15 37.5 C 100 H 18 146/83 H 96 Nasal Cannula 12/18/24 02:40 99 H O2 Flow Rate 12/18/24 11:32 12/18/24 09:00 3 12/18/24 08:05 3 12/18/24 07:30 3 12/18/24 07:00 12/18/24 06:01 12/18/24 05:18 12/18/24 03:15 3 12/18/24 02:40 Laboratory Results Laboratory Results WBC 23.80 K/ul (4.8-10.8) H 12/18/24 05:38 RBC 3.48 M/uL (4.70-6.10) L 12/18/24 05:38 Hgb 8.5 g/dl (14.0-18.0) L 12/18/24 05:38 Hct 27.3 % (42.0-52.0) L 12/18/24 05:38 MCV 78.4 fL (80.0-100.0) L 12/18/24 05:38 MCH 24.4 pg (25.0-34.0) L 12/18/24 05:38 MCHC 31.1 g/dL (32.0-36.0) L 12/18/24 05:38 RDW Std Deviation 54.8 fL (36.4-46.3) H 12/18/24 05:38 RDW Coeff of Gerardo 19.5 % (11.5-14.5) H 12/18/24 05:38 Plt Count 401 K/uL (130-400) H 12/18/24 05:38 MPV 9.8 fL (9.4-12.4) 12/18/24 05:38 Immature Gran % (Auto) 0.6 % 12/16/24 05:37 Neut % (Auto) 70.6 % 12/16/24 05:37 Lymph % (Auto) 10.2 % 12/16/24 05:37 Bath % (Auto) 14.5 % 12/16/24 05:37 Eos % (Auto) 3.6 % 12/16/24 05:37 Baso % (Auto) 0.5 % 12/16/24 05:37 Neut # (Auto) 12.08 K/uL (1.40-6.50) H 12/16/24 05:37 Lymph # (Auto) 1.74 K/uL (1.20-3.40) 12/16/24 05:37 Bath # (Auto) 2.48 K/uL (0.11-0.59) H 12/16/24 05:37 Eos # (Auto) 0.62 K/uL (0.00-0.50) H 12/16/24 05:37 Baso # (Auto) 0.09 K/uL (0.00-0.20) 12/16/24 05:37 Immature Gran # (Auto) 0.11 K/uL (0.01-0.20) 12/16/24 05:37 Polychromasia 2+ 12/16/24 05:37 Hypochromasia Present 12/16/24 05:37 Microcytosis Present 12/16/24 05:37 Target Cells 1+ 12/16/24 05:37 PT 15.0 Seconds (9.0-12.0) H 12/15/24 15:31 INR 1.4 (0.9-1.1) H 12/15/24 15:31 APTT 29 Seconds (21-31) 12/15/24 15:31 PTT Ratio 1.1 12/15/24 15:31 Sodium 134 mmol/L (136-145) L 12/18/24 05:38 Potassium 5.0 mmol/L (3.5-5.1) 12/18/24 05:38 Chloride 103 mmol/L (98-107) 12/18/24 05:38 Carbon Dioxide 23 mmol/L (21-32) 12/18/24 05:38 Anion Gap 8 (3-11) 12/18/24 05:38 BUN 34 mg/dl (6-23) H 12/18/24 05:38 Creatinine 0.92 mg/dl (0.6-1.4) 12/18/24 05:38 Est Cr Clr Drug Dosing 83.3 ml/min 12/18/24 05:38 eGFR 94.05 12/18/24 05:38 BUN/Creatinine Ratio 37.0 (10-20) H 12/18/24 05:38 Glucose 102 mg/dl (70-99(Fasting)) H 12/18/24 05:38 Calcium 9.5 mg/dl (8.6-10.3) 12/18/24 05:38 Iron 14 mcg/dl (35-175) L 12/16/24 05:37 Unsaturated IBC 124 mcg/dl (155-355) L 12/16/24 05:37 Ferritin 1552.0 ng/ml (8-388) H 12/16/24 05:37 Total Bilirubin 1.5 mg/dl (0.2-1.0) H 12/16/24 05:37 AST 54 U/L (13-39) H 12/16/24 05:37 ALT 30 U/L (7-52) 12/16/24 05:37 Alkaline Phosphatase 157 U/L (34-104) H 12/16/24 05:37 Total Protein 6.5 gm/dl (6.0-8.3) 12/16/24 05:37 Albumin 2.7 gm/dl (3.4-5.0) L 12/16/24 05:37 Globulin 3.8 gm/dl (2.5-4.0) 12/16/24 05:37 Albumin/Globulin Ratio 0.7 (0.9-2) L 12/16/24 05:37 Vitamin B12 350 pg/ml (180-914) 12/16/24 05:37 Urine Color Dark Yellow 12/15/24 17:30 Urine Appearance Cloudy (Clear) A 12/15/24 17:30 Urine pH 5.0 (4.5-7.5) 12/15/24 17:30 Ur Specific Etlan 1.022 (1.000-1.030) 12/15/24 17:30 Urine Protein 1+ (Negative) H 12/15/24 17:30 Urine Glucose (UA) Negative (Negative) 12/15/24 17:30 Urine Ketones Negative (Negative) 12/15/24 17:30 Urine Blood Negative (Negative) 12/15/24 17: Urine Nitrite Negative (Negative) 12/15/24 17: Urine Bilirubin 1+ (Negative) H 12/15/24 17:30 Urine Urobilinogen Positive (Negative) H 12/15/24 17:30 Ur Leukocyte Esterase Trace (Negative) H 12/15/24 17:30 Urine WBC (Auto) 0-5 /hpf (0-5) 12/15/24 17:30 Urine RBC (Auto) 0-2 /hpf (0-2) 12/15/24 17:30 U Hyaline Cast (Auto) 6-10 /lpf (0-2) H 12/15/24 17:30 U Epithel Cells (Auto) 6-10 /hpf (0-2) H 12/15/24 17:30 Urine Bacteria (Auto) None Seen (None Seen) 12/15/24 17:30 Hyaline Casts Present /lpf (None Presnt) A 12/15/24 17:30 Nasal Screen MRSA (PCR) Negative (Negative) 12/16/24 11:15 Blood Type A Positive 12/15/24:31 Antibody Screen NEGATIVE 12/15/24 15: Crossmatch See Detail 12/15/24 15:31 Impressions Chest X-Ray 12/17/24 07:10 EXAM: XR chest 1V portable CLINICAL HISTORY: WORSENING HYPOXIA, PULM EDEMA VS IMFILTRATES LDS TECHNIQUE: An X-ray image of the chest is obtained in AP projection. COMPARISON: Prior study dated 12/15/2024 FINDINGS: Pulmonary Parenchyma: Near total opacification of right hemithorax seen. Left Lung is clear bilaterally. No evidence of left pleural effusion or pleural thickening. Heart and Mediastinum: Heart size and shape are normal. No mediastinal widening or masses. No hilar or mediastinal lymphadenopathy. Bony Thorax: Bony thorax appears intact without fractures or deformities. Soft Tissues: Soft tissues overlying the chest wall are unremarkable. IMPRESSION: Near total opacification of right hemithorax seen (progressive course), could be massive effusion, with possible mass, CT is needed. Electronically signed by Myron Shah 12-17-2024 08:[address] 12/17/24 11:39 CT chest diagnostic w con CLINICAL HISTORY: complete opacification right lung, NSCLC TECHNIQUE: Multidetector row helical CT of the chest was performed with intravenous contrast. Coronal and sagittal reformations were obtained. Automated dose lowering techniques and/or adjustment according to patient size were utilized for this exam. CT DOSE: 618.95 mGy.cm Comparison: Comparison is made to CT chest 11/28/2024 FINDINGS: Lungs and pleura: There is interval enlargement of a heterogeneous right upper lung mass with surrounding pulmonary opacities. Although its contours are obscured, it measures roughly 11.5 cm compared to 7 cm on the prior exam. There is also a small right pleural effusion. Collectively this results in nearly total opacification of the right hemithorax. The left lung is clear. Heart and pericardium: Heart size is normal. No pericardial effusion. Vessels: Unremarkable. Mediastinum and yesi: Unremarkable. Chest wall and lower neck: Unremarkable. Abdomen: Prominent hypodensity in the liver is partially visualized, grossly stable to minimally increased from prior exam. Bones: Unremarkable. IMPRESSION: Interval opacification of the right hemithorax secondary to enlargement of the right upper lung mass, surrounding airspace opacity, and small right pleural effusion. ACT 112: Negative or not required by law. Electronically signed by: Alphonso Diego M.D. 12/17/2024 12:49 PM (1) Anemia Anemia type: unspecified type Qualified Code(s): D64.9 - Anemia, unspecified (3) Lung cancer Laterality: right Lung location: upper lobe of lung Qualified Code(s): C34.11 - Malignant neoplasm of upper lobe, right bronchus or lung (6) Pneumonia Laterality: right Lung location: upper lobe of lung Pneumonia type: due to unspecified organism Qualified Code(s): J18.9 - Pneumonia, unspecified organism
[2024-12-18] MEDS: dexAMETHasone 4 MG TAB PO SCH (12:55)
[2024-12-19 08:49] VITALS: BP 102/60; PULSE 74; RESP 18; TEMP 98.2; O2SAT 95
[2024-12-19] MEDS: HYDROmorphone INJ 1 MG/ML SYRINGE IV PRN (09:24)
--- NOTE | 2024-12-19 10:47 | Hospitalist Progress Note ---
Date of Service December 19, 2024 Assessment & Plan (1) Anemia: Plan: -likely 2/2 malignancy, given symptoms and denying lost of blood elsewhere -other differential includes upper vs. lower GI bleed, anemia of chronic disease, nutritional deficiencies -received IV venofer during last admission, received one unit of blood this admission Plan: -comfort care (2) Acute hypoxic respiratory failure: Plan: -see below, 2/2 malignancy and possible post obstructive pneumonia -f/u CT concern for lung collapse and bronchial obstruction -respiratory culture growing gram negative and positive organisms Plan: -appreciate pulmonary assistance -oxygen, goal 92% sat -IS and flutter valve ordered -continue levofloxacin/augmentin for now, continue on comfort care (3) Lung cancer: Plan: -The RUL mass, transbronchial biopsy Non-small cell carcinoma favor adenocarcinoma -metastatic disease to adrenals, ECOG of 1 at this time -given possible impending bronchial collapse, prognosis is poor -discussed prognosis of weeks to months with patient, appreciate pulmonary assistance Plan: -comfort focused care -discharge to correctional facility tomorrow with modified medication regiment (4) Cancer associated pain: Plan: -pain on right rib cage correlates with imaging of RUL mass -seems neuropathic in nature with nociceptive components -pain does not seem to be improving, bone pain component noted Plan: -stop oxycodone, start dilaudid 4mg PO q3hrs prn for severe pain with dilaudid 1mg IV for breakthrough pain -continue pregablin 75 tid for neuropathic pain -start decadron 4mg for capsular and bone pain, fatigue and weakness (5) Hypertension, essential: Plan: -BP stable -Continue labetalol, enalapril (6) Pneumonia: Plan: -has cough, given recent course of abx, concern that this pneumonia may be obstructive in nature -febrile as well today Plan: -see above Plan I spent a total of 50 minutes coordinating, documenting, and providing care for this patient excluding time spent in the performance of separately billed services. Admission and Anticipated Discharge Date Admission Date: December 17, 2024 Subjective Patient seen and examined at bedside. Patient feels about the same as yesterday. Has been taking the oxycodone instead of the Dilaudid. Wants to try the Dilaudid instead now. Had conversations with correctional facility yes terday, able to take patient back on hospice. Requested progress notes and medication changes. Modulated regiment to match formulary at correctional facility on discharge. Review of Systems Review of Systems: CONSTITUTIONAL: fatigue, weakness, same as prior EYES: Patient denies any visual symptoms. EARS, NOSE, AND THROAT: No difficulties with hearing. No symptoms of rhinitis or sore throat. CARDIOVASCULAR: Patient denies chest pains, palpitations, orthopnea and paroxysmal nocturnal dyspnea. RESPIRATORY: shortness of breath GI: No nausea, vomiting, diarrhea, constipation, abdominal pain, hematochezia or melena. : No urinary hesitancy or dribbling. No nocturia or urinary frequency. No abnormal urethral discharge. MUSCULOSKELETAL: No myalgias or arthralgias. Pain NEUROLOGIC: No chronic headaches, no seizures. Patient denies numbness, tingling or weakness. PSYCHIATRIC: Patient denies problems with mood disturbance. No problems with anxiety. ENDOCRINE: No excessive urination or excessive thirst. DERMATOLOGIC: Patient denies any rashes or skin changes. Physical Exam Physical Exam: Gen: A&O 3 NAD HEENT: NCAT, EOMI, not icteric. External ears normal. No rhinorrhea. Moist mucous membranes. Neck: Supple, full range of motion, no observable masses, No meningeal sign. Lungs: No Respiratory distress. no wheezing or rhonchi noted CV: RRR, no edema. Abdomen: Soft, nondistended, No rebound tenderness. MSK: No joint swelling, no redness. Right chest pain to palpation Skin: No rashes, petechiae, lesions. Normal color per patient. Neuro: Normal Gait, Grossly intact. Psych: Appropriate for situation. Results & Data Results & Data Vital Signs (Past 12 Hours) Vital Signs Temp Pulse Resp BP Pulse Ox O2 Del Method O2 Flow Rate 12/19/24 09:53 Nasal Cannula 3 12/19/24 08:49 36.8 C 74 18 102/60 95 Room Air 12/18/24 22:49 Nasal Cannula 3 (1) Anemia Anemia type: unspecified type Qualified Code(s): D64.9 - Anemia, unspecified (3) Lung cancer Laterality: right Lung location: upper lobe of lung Qualified Code(s): C34.11 - Malignant neoplasm of upper lobe, right bronchus or lung (6) Pneumonia Laterality: right Lung location: upper lobe of lung Pneumonia type: due to unspecified organism Qualified Code(s): J18.9 - Pneumonia, unspecified organism
[2024-12-19] MEDS: HYDROmorphone HCL 4 MG TAB PO PRN (17:22)
--- NOTE | 2024-12-20 11:59 | Discharge Summary ---
Discharge Summary Date of Service December 20, 2024 Principal Dx & Hospital Course #1 = Principal Diagnosis (1) Anemia: -likely 2/2 malignancy, given symptoms and denying lost of blood elsewhere -other differential includes upper vs. lower GI bleed, anemia of chronic disease, nutritional deficiencies -received IV venofer during last admission, received one unit of blood this admission Plan: -comfort care (2) Acute hypoxic respiratory failure: -see below, 2/2 malignancy and possible post obstructive pneumonia -f/u CT concern for lung collapse and bronchial obstruction -respiratory culture growing gram negative and positive organisms Plan: -appreciate pulmonary assistance -oxygen, goal 92% sat -IS and flutter valve ordered -continue levofloxacin/augmentin for now, continue on comfort care for several days -continue decadron 4mg (3) Lung cancer: #Stage IV Lung Adenocarcinoma #SVC Syndrome #Acute Hypoxic Respiratory Failure #Comfort Care -end stage disease, impending complete right mainstem broncus occlusion c/b pleural effusions and SVC syndrome, discussed with pulmonary as well -prognosis on scale of weeks to months, potentially shorter depending on decline in functional status, discussed with patient -patient opted for comfort focused care, DNRDNI with comfort care Plan: -oxycodone 10 mg q3-q4hr prn PO (conversion from dilaudid 4mg PO), could alternatively do morphine PO 12mg q3-q4hr prn pending formulary, for nociceptive pain -gabapentin 500-600 mg q8hrs scheduled (conversion from lyrica 75mg tid) for neuropathic pain -prednisone 30 mg daily for duration (converted from dexamethasone 4mg daily) for bone/capsular pain -continue oxygen for comfort -ondansetron 4mg q4hr prn PO for nausea/vomiting -recommend mouth and eye care prn -spirtual care consult if avaliable (4) Cancer associated pain: -see above (5) Hypertension, essential: -BP stable -Continue labetalol, enalapril (6) Pneumonia: -has cough, given recent course of abx, concern that this pneumonia may be obstructive in nature -febrile as well today Plan: -see above Plan I spent a total of 50 minutes coordinating, documenting, and providing care for this patient excluding time spent in the performance of separately billed services. Notes For Next Care Provider 64-year-old male who presented from [facility] for low hemoglobin. Received blood, admitted to medicine for further workup. On medicine patient had continued hypoxia as prior admissions have shown. Was started on antibiotics, imaging was gotten because of concern of nonresolving hypoxia, that showed near bronchial collapse and sick and almost entire whiteout of right lung. Pulmonary was consulted, no further interventions available, prognosis is poor and limited due to bronchial collapse. Had goals of care conversation with patient, patient wants to focus on being comfortable and does not want to pursue further treatment of underlying conditions. Would like to focus on comfort. Discussed with correctional facility about how to provide hospice care at the facility. Medications converted into formulary medications onsite at the retirement. Make sure that medications were at the retirement before discharge. Medication Changes From Visit -oxycodone, gabapentin, prednisone Admission HPI Per Admitting Provider Patient is 64 year old male with PMH HTN, dyslipidemia, HCV, tuberculosis, recently diagnosed lung cancer, anemia presented from [facility] to ER with c/o abnormal labs - low hemoglobin of 6.8 on outpatient labs on 12/13/24 and was sent in today for evaluation. 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 The RUL mass, transbronchial biopsy: Non-small cell carcinoma favor adenocarcinoma. During that hospitalization received 1 unit PRBC and IV Venofer and Hgb:7.8 on 12/04/24 on discharge day. He was also treated with cefepime and doxycycline for pneumonia and he was under isolation precautions while TB was being ruled out. Patient states continues to cough but not having hemoptysis since hospital discharge. He reports having continued right sided chest pain. [place] like when was in hospital right sided chest pain decreased and was being controlled better with pain medication. He states since being discharged feels like having right sided chest discomfort not controlled with his pain regimen at [facility]. He is unsure of what he has been receiving there. Hasn't followed up with outpatient oncology yet. He states has been using oxygen but unsure of how much. He reports that doesn't feel SOB while using oxygen. Denies fever/chills, diaphoresis, N/V/D/C, TOVAR, dizziness, syncope, neck pain, palpitations, abdominal pain, paresthesias, weakness, extremity edema, rashes, urinary symptoms. Discharge Exam Gen: A&O 3 NAD HEENT: NCAT, EOMI, not icteric. External ears normal. No rhinorrhea. Moist mucous membranes. Neck: Supple, full range of motion, no observable masses, No meningeal sign. Lungs: rhonchi noted throughout right lung field CV: RRR, no edema. Abdomen: Soft, nondistended, No rebound tenderness. MSK: No joint swelling, no redness. Right chest pain to palpation Skin: No rashes, petechiae, lesions. Normal color per patient. Neuro: Normal Gait, Grossly intact. Psych: Appropriate for situation. Updated Medication List Medication Instructions Recorded Confirmed Type enalapril maleate 20 mg tablet 20 mg PO DAILY 12/15/24 12/15/24 History labetalol 300 mg tablet 300 mg PO BID 12/15/24 12/15/24 History amoxicillin 875 mg-potassium 1 tab PO BID 5 days #10 tabs 12/20/24 Rx clavulanate 125 mg tablet levofloxacin 750 mg tablet 750 mg PO DAILY@1100 5 days #5 tabs 12/20/24 Rx Hospital Stay Data Consultations 12/15/24 16:44 ED Decision to Admit Stat 12/17/24 14:19 Consult Pulmonology Routine Diagnostic Imagining Performed 12/17/24 11:39 CT chest diagnostic w con Stat 12/18/24 10:14 US point of care ultrasound Urgent Pending Results Patient Have Any Pending Studies at Discharge: No Discharge Instructions Given to Patient (Per Discharging Provider) 1. Patient is DNRDNI comfort care, and all care should be focused on comfort. 2. See faxed over progress note in regards to pain regiment. 3. See discharge summary for pain recs. Total Time Total Time Spent Total Time Spent (In Minutes): I spent a total of 55 minutes coordinating, documenting, and providing care for this patient excluding time spent in the performance of separately billed services.
== END 2024-12-20 13:22 | DRG 180 ==
LOC: EDINP 14:25 → ED 14:25 → SUATTDRO 17:52 → 2W 19:45 → SUATTDRO 12-17 17:28

== ENCOUNTER 2024-12-26 18:30 | Inpatient (IN) ==
[2024-12-26] MEDS: SODIUM CHLORIDE 0.9% 1,000 ML IV ONE ×2 (18:46→19:00)
[2024-12-26 18:55] LABS: HCO3 VBG 6 mmol/L; PCO2 VBG 14 mmHg (38-50); PO2 VBG < 20 mmHg; pH VBG 7.23 (7.36-7.41)
[2024-12-26] MEDS: DEXTROSE 50% 50 ML SYRINGE IV ONE (18:55)
[2024-12-26] MEDS ORDERED: VANCOMYCIN CONSULT ACTIVE PRN (19:02)
--- NOTE | 2024-12-26 19:04 | Emergency Department Note ---
Impression & Plan Sepsis, Anemia, Acute alteration in mental status, Acute hypotension, Atrial fibrillation with rapid ventricular response ED Provider Note NAME: GEE [id number] KARMA AGE: 64 SEX: M : 1960 ARRIVES VIA: Ambulance INFORMANT: Patient, EMS ED PROVIDER(S): Frank Matthews DO CHIEF COMPLAINT: Altered mental status HPI: The patient is a 64-year-old male who presented to the emergency department for an evaluation of altered mental status. The patient was recently diagnosed with a large right upper lobe mass which was diagnosed as cancer. The patient was noted to be lethargic today. The patient is comfort measures only and upon arrival states he does not wish any aggressive measures. The patient denies having any chest pain. He does complain of shortness of breath which is not new. The patient denies having any hemoptysis. He said no recent illnesses or fevers. ROS: See above HPI for pertinent positives & negatives. A total of 10 systems reviewed and were otherwise negative. PAST MEDICAL HISTORY: See Below PAST SURGICAL HISTORY: See Below FAMILY HISTORY: See Below SOCIAL HISTORY: See Below HOME MEDICATIONS: See Below ALLERGIES: See Below VITALS: See Below PHYSICAL EXAMINATION: GENERAL: The patient is listless and does not respond to questions. He does follow me with his eyes to loud verbal commands. EYES: The conjunctivae are clear. The pupils are round and reactive. EARS, NOSE, MOUTH AND THROAT: The nose is without any evidence of any deformity. Mucous membranes are dry. NECK: The neck is nontender and supple. RESPIRATORY: Absent breath sounds are noted in the right lung field. There is underlying tachypnea noted. CARDIOVASCULAR: Regular rate and rhythm noted there no murmurs rubs or gallops normal S1 normal S2. GASTROINTESTINAL: The abdomen is soft. Abdomen is nontender MUSCULOSKELETAL/EXTREMITIES: There is no evidence of gross deformity full range of motion is noted in the hips and shoulders. SKIN: There is no obvious evidence of any rash. There are no petechiae, pallor or cyanosis noted. NEUROLOGIC: Patient is awake but does not follow commands or answer questions. I am unable to assess orientation at this time. MEDICAL DECISION MAKING: Patient is a 64-year-old male who presented to the emergency department for an evaluation of altered mental status. The patient has a history of recently diagnosed lung cancer. He is choosing to have no treatment and was trying to work on hospice care. He would prefer to have no aggressive measures. The patient was hypotensive. Given the size of the mass and the possibility of other underlying issue such as hemorrhage he was treated with IV fluids initially for resuscitation. He was placed on supplemental oxygen. A central line was placed. Initially the patient did agree to blood transfusion but ultimately after talking to the admitting team he would prefer comfort measures only. I discussed the patient's laboratory and radiographic studies with him. I discussed his condition with the on-call [facility] Hospitalist. The patient did appear to have some improvement of symptoms over time after fluid resuscitation. Triage Nursing notes reviewed. Prior medical records reviewed Vital Signs: reviewed and remarkable for hypotension and tachycardia. Differential diagnosis: Infection, hypoglycemia, electrolyte abnormalities, overdose, toxicologic, cardiac sources, intracerebral event, neurologic, trauma, as well as other pathologies. ER treatment provided: See below Diagnostics interpreted by me: ECG: EKG was obtained in the emergency department. My interpretation is atrial fibrillation with rapid ventricular response at 121 bpm. No PVCs were noted. ST segment elevation was noted in the inferior and lateral leads. This does appear to be consistent with ischemia and possibly acute ST segment elevation IN. This was compared to a tracing from December 15, 2024. Significant changes have occurred. Cardiac Monitoring: An order was placed for continuous cardiac monitoring. The monitor shows a rate of 160 bpm with atrial fibrillation. Laboratory studies: As stated above and show below. Imaging studies: See below. Radiographic imaging was reviewed by myself Consultation(s): I discussed this case with Dr. Sanches who is on for the [facility] ED COURSE: The patient received 1 L of normal saline solution prior to arrival from the EMS personnel. Procedures: Femoral Central Venous Catheter Indication: Sepsis Catheter Type: Triple-lumen Location: Right femoral vein Verbal consent was obtained after the risks and benefits were explained, including but not limited to intra-abdominal injury, vessel injury, bleeding, scarring, infection, pain, and bone/joint/nerve damage. At this time, the risks of the procedure are less than the risks of NOT performing the procedure. A time out was taken and the correct patient and site identified. The patient was placed in the supine position and the skin was prepped in the standard fashion with chlorhexidine and full sterile drapes applied. The proper landmarks were identified with ultrasound, anesthetized with 1% lidocaine without epinephrine, and the needle was inserted through the skin in the standard fashion. The needle was carefully advanced into blood vessel lumen with ultrasound guidance. The guidewire was placed uneventfully. The vessel is dilated and the catheter was placed. It was sutured into position. There was good blood return from all ports. The patient tolerated the procedure well and there were no complications. Critical Care: I have personally spent greater than 45 minutes of critical care time in the direct management of this patient. This includes bedside care, interpretation of diagnostic studies, and testing, discussion with consultants, patient, and family members, and other required patient management activities. This 45 minutes is in excess of all separately billable procedures. Past Med/Surg History Problem List (Updated 12/26/24 @ 22:15 by Frank Matthews DO) Atrial fibrillation with rapid ventricular response (Acute) Acute hypotension (Acute) Acute alteration in mental status (Acute) Sepsis (Acute) Pleural effusion Metastatic malignant neoplasm to adrenal gland Mass of right lung Acute hypoxic respiratory failure Pneumonia Anemia (Acute) Cancer associated pain Lung cancer (Acute) Adenocarcinoma of left lung Hypertension, essential Hyperlipidemia Hyperlipidemia Anemia Superior vena cava compression syndrome (Acute) Mass of upper lobe of lung (Acute) Medical History Hypertension Social History Smoking Status: Current every day smoker Tobacco Type: E-cigarettes / Vaping Hx Alcohol Use: No Hx Substance Use: No Preferred Language: Swedish Communication Ability: Effective [employer] Required: No Beliefs That Will Affect Care: None Current Living Situation: Other Current Living Situation Comment: [facility] Feels Safe at Home: Yes Assistive Devices: Oxygen - Continuous Allergies Allergies Allergy/AdvReac Type Severity Reaction Status Date / Time No Known Allergies Allergy Unverified 11/28/24 18:08 Home Meds Home Medications Medication Instructions Recorded Confirmed enalapril maleate 20 mg tablet 20 mg PO DAILY 12/15/24 12/26/24 labetalol 300 mg tablet 300 mg PO BID 12/15/24 12/26/24 gabapentin 300 mg tablet 300 mg PO TID 12/26/24 12/26/24 oxycodone 10 mg tablet,oral ONLY 10 mg PO Q4H PRN Pain (Scale Score 12/26/24 12/26/24 (not feeding tubes) 4-6) prednisone 10 mg tablet 30 mg PO DAILY 12/26/24 12/26/24 Results & Data (ED) Vital Signs Vital Signs - 24 hr 12/26/24 18:36 12/26/24 18:36 12/26/24 18:41 Pulse Rate 118 H 116 H Respiratory Rate 12 Respiratory Effort / Characteristics Non-Labored Spontaneous Respiratory Depth Normal Blood Pressure 53/44 L Blood Pressure Mean 47 Blood Pressure Position Lying Pulse Oximetry 95 Oxygen Delivery Method Non-rebreather Non-rebreather Oxygen Flow Rate 15 Sepsis Recent Fever Within 48 Hours No Sepsis New/Unexplained Change in Mental Status N/A Sepsis Action Taken by Nursing Physician Notified Oxygen Flow Rate - Titration 15 12/26/24 18:41 12/26/24 18:45 12/26/24 18:50 Pulse Rate 110 H 114 H 119 H Respiratory Rate 8 L 10 L 10 L Respiratory Effort / Characteristics Respiratory Depth Blood Pressure 53/44 L 71/44 L 75/56 L Blood Pressure Mean 50 49 60 Blood Pressure Position Pulse Oximetry Oxygen Delivery Method Non-rebreather Non-rebreather Non-rebreather Oxygen Flow Rate 15 15 15 Sepsis Recent Fever Within 48 Hours Sepsis New/Unexplained Change in Mental Status Sepsis Action Taken by Nursing Oxygen Flow Rate - Titration 12/26/24 18:58 12/26/24 19:07 12/26/24 19:07 Pulse Rate 112 H 113 H Respiratory Rate 12 22 Respiratory Effort / Characteristics Respiratory Depth Blood Pressure 91/62 L 106/63 Blood Pressure Mean 67 74 Blood Pressure Position Pulse Oximetry 94 100 100 Oxygen Delivery Method Non-rebreather Non-rebreather Non-rebreather Oxygen Flow Rate 15 15 15 Sepsis Recent Fever Within 48 Hours Sepsis New/Unexplained Change in Mental Status Sepsis Action Taken by Nursing Oxygen Flow Rate - Titration 12/26/24 19:15 12/26/24 19:52 12/26/24 20:00 Pulse Rate 112 H 114 H 113 H Respiratory Rate 20 24 24 Respiratory Effort / Characteristics Respiratory Depth Blood Pressure 94/69 L 94/61 L 83/50 L Blood Pressure Mean 76 73 53 Blood Pressure Position Pulse Oximetry 100 100 100 Oxygen Delivery Method Non-rebreather Non-rebreather Non-rebreather Oxygen Flow Rate 15 15 15 Sepsis Recent Fever Within 48 Hours Sepsis New/Unexplained Change in Mental Status Sepsis Action Taken by Nursing Oxygen Flow Rate - Titration Home Medications Current Medication List: was personally reviewed by me Laboratory Data Attestation: I reviewed the patient's lab results. 12/26/24 19:19 12/26/24 19:19 Lab Results 12/26/24 12/26/24 12/26/24 Range/Units 18:39 18:43 18:53 WBC Cancelled RBC Cancelled Hgb Cancelled Hct Cancelled MCV Cancelled MCH Cancelled MCHC Cancelled RDW Std Deviation Cancelled RDW Coeff of Gerardo Cancelled Plt Count Cancelled MPV Cancelled Immature Gran % (Auto) Cancelled Neut % (Auto) Cancelled Lymph % (Auto) Cancelled Posey % (Auto) Cancelled Eos % (Auto) Cancelled Baso % (Auto) Cancelled Neut # (Auto) Cancelled Lymph # (Auto) Cancelled Posey # (Auto) Cancelled Eos # (Auto) Cancelled Baso # (Auto) Cancelled Immature Gran # (Auto) Cancelled Absolute Nucleated RBC Cancelled Nucleated RBC % (auto) Cancelled Neutrophils % (Manual) Cancelled Band Neutrophils % Cancelled Lymphocytes % (Manual) Cancelled Prolymphocyte % Cancelled Reactive Lymphs % (Man) Cancelled Monocytes % (Manual) Cancelled Eosinophils % (Manual) Cancelled Basophils % (Manual) Cancelled Metamyelocytes % (Man) Cancelled Myelocytes % (Man) Cancelled Promyelocytes % (Man) Cancelled Blast Cells % (Manual) Cancelled Plasma Cell % (Manual) Cancelled Other Cells % Cancelled Nucleated RBC % Cancelled Neutrophils # (Manual) Cancelled Band Neutrophils # Cancelled Total Absolute Neuts Cancelled Lymphocytes # (Manual) Cancelled Prolymphocyte # Cancelled Reactive Lymphs # Cancelled Total Abs Lymphocytes Cancelled Monocytes # (Manual) Cancelled Eosinophils # (Manual) Cancelled Basophils # (Manual) Cancelled Metamyelocytes # (Man) Cancelled Myelocytes # (Manual) Cancelled Promyelocytes # (Man) Cancelled Blast Cells # (Man) Cancelled Plasma Cell # (Manual) Cancelled Other Cells # Cancelled Nucleated RBCs # (Man) Cancelled Hypersegmented Neuts Cancelled Hyposegmented Neuts Cancelled Hypogranular Neuts Cancelled Large Granular Lymphs Cancelled # Lrg Granular Lymphs Cancelled Hairy Cells Cancelled Smudge Cells Cancelled Toxic Granulation Cancelled Toxic Vacuolation Cancelled Dohle Bodies Cancelled Suha Rods Cancelled Platelet Estimate Cancelled Hypogranular Platelets Cancelled Giant Platelets Cancelled Platelet Satelliting Cancelled RBC Morphology Cancelled Polychromasia Cancelled Hypochromasia Cancelled Poikilocytosis Cancelled Basophilic Stippling Cancelled Anisocytosis Cancelled Microcytosis Cancelled Macrocytosis Cancelled Spherocytes Cancelled Pappenheimer Bodies Cancelled Sickle Cells Cancelled Target Cells Cancelled Tear Drop Cells Cancelled Ovalocytes Cancelled Stomatocytes Cancelled [place] Bodies Cancelled Echinocytes Cancelled Acanthocytes (Spur) Cancelled Rouleaux Cancelled RBC Agglutinates Cancelled Schistocytes Cancelled Sezary Cell Cancelled PT Cancelled INR Cancelled APTT Cancelled PTT Ratio Cancelled VBG pH 7.23 L (7.36-7.41) VBG pCO2 14 L (38-50) mmHg VBG pO2 < 20 mmHg VBG HCO3 6 mmol/L VBG O2 Saturation % VBG Base Excess -19.0 mEq/L Sodium Cancelled Potassium Cancelled Chloride Cancelled Carbon Dioxide Cancelled Anion Gap Cancelled BUN Cancelled Creatinine Cancelled Est Cr Clr Drug Dosing Cancelled eGFR Cancelled BUN/Creatinine Ratio Cancelled Glucose Cancelled POC Glucose 116 H 119 H (70-99) mg/dl Lactate 7.1 H* (0.4-2.0) mmol/L Calcium Cancelled Magnesium Cancelled Total Bilirubin Cancelled Direct Bilirubin Cancelled AST Cancelled ALT Cancelled Alkaline Phosphatase Cancelled Troponin I High Sens Cancelled Total Protein Cancelled Albumin Cancelled Procalcitonin Cancelled Random Cortisol mcg/dl Urine Color Urine Appearance (Clear) Urine pH (4.5-7.5) Ur Specific [place] (1.000-1.030) Urine Protein (Negative) Urine Glucose (UA) (Negative) Urine Ketones (Negative) Urine Blood (Negative) Urine Nitrite (Negative) Urine Bilirubin (Negative) Urine Urobilinogen (Negative) Ur Leukocyte Esterase (Negative) Urine WBC (Auto) (0-5) /hpf Urine RBC (Auto) (0-2) /hpf U Hyaline Cast (Auto) (0-2) /lpf U Epithel Cells (Auto) (0-2) /hpf Urine Bacteria (Auto) (None Seen) Blood Parasites ID Cancelled Blood Type Cancelled Antibody Screen Cancelled 01/26/25 01/26/25 Range/Units 19:19 19:29 WBC 24.22 H RBC 2.46 L Hgb 6.1 L* Hct 19.3 L* MCV 78.5 L MCH 24.8 L MCHC 31.6 L RDW Std Deviation 59.0 H RDW Coeff of Gerardo 21.1 H Plt Count 327 MPV 10.0 Immature Gran % (Auto) 3.6 Neut % (Auto) 85.4 Lymph % (Auto) 5.4 Posey % (Auto) 5.4 Eos % (Auto) 0.1 Baso % (Auto) 0.1 Neut # (Auto) 20.69 H Lymph # (Auto) 1.31 Posey # (Auto) 1.31 H Eos # (Auto) 0.02 Baso # (Auto) 0.03 Immature Gran # (Auto) 0.86 H Absolute Nucleated RBC 0.13 H Nucleated RBC % (auto) 0.5 Neutrophils % (Manual) Band Neutrophils % Lymphocytes % (Manual) Prolymphocyte % Reactive Lymphs % (Man) Monocytes % (Manual) Eosinophils % (Manual) Basophils % (Manual) Metamyelocytes % (Man) Myelocytes % (Man) Promyelocytes % (Man) Blast Cells % (Manual) Plasma Cell % (Manual) Other Cells % Nucleated RBC % Neutrophils # (Manual) Band Neutrophils # Total Absolute Neuts Lymphocytes # (Manual) Prolymphocyte # Reactive Lymphs # Total Abs Lymphocytes Monocytes # (Manual) Eosinophils # (Manual) Basophils # (Manual) Metamyelocytes # (Man) Myelocytes # (Manual) Promyelocytes # (Man) Blast Cells # (Man) Plasma Cell # (Manual) Other Cells # Nucleated RBCs # (Man) Hypersegmented Neuts Hyposegmented Neuts Hypogranular Neuts Large Granular Lymphs # Lrg Granular Lymphs Hairy Cells Smudge Cells Toxic Granulation Toxic Vacuolation Dohle Bodies Shua Rods Platelet Estimate Hypogranular Platelets Giant Platelets Platelet Satelliting RBC Morphology Polychromasia Hypochromasia Poikilocytosis Basophilic Stippling Anisocytosis Present Microcytosis Macrocytosis Spherocytes Pappenheimer Bodies Sickle Cells Target Cells 1+ Tear Drop Cells Ovalocytes Stomatocytes [place] Bodies Echinocytes 1+ Acanthocytes (Spur) Rouleaux RBC Agglutinates Schistocytes Sezary Cell PT 19.3 H INR 1.9 H APTT 35 H PTT Ratio 1.3 VBG pH (7.36-7.41) VBG pCO2 (38-50) mmHg VBG pO2 mmHg VBG HCO3 mmol/L VBG O2 Saturation % VBG Base Excess mEq/L Sodium 134 L Potassium 5.3 H Chloride 105 Carbon Dioxide 16 L Anion Gap 13 H BUN 113 H Creatinine 3.15 H Est Cr Clr Drug Dosing 26.0 eGFR 21.48 BUN/Creatinine Ratio 35.9 H Glucose 238 H POC Glucose (70-99) mg/dl Lactate (0.4-2.0) mmol/L Calcium 7.6 L Magnesium 2.6 H Total Bilirubin 1.6 H Direct Bilirubin 0.8 H AST 577 H ALT 198 H Alkaline Phosphatase 98 Troponin I High Sens 22.5 H Total Protein 5.0 L Albumin 2.2 L Procalcitonin 3.85 H Random Cortisol 32.65 mcg/dl Urine Color Dark Yellow Urine Appearance Cloudy A (Clear) Urine pH 5.0 (4.5-7.5) Ur Specific [place] 1.022 (1.000-1.030) Urine Protein 1+ H (Negative) Urine Glucose (UA) Negative (Negative) Urine Ketones Trace H (Negative) Urine Blood Trace H (Negative) Urine Nitrite Positive A (Negative) Urine Bilirubin 1+ H (Negative) Urine Urobilinogen Negative (Negative) Ur Leukocyte Esterase Trace H (Negative) Urine WBC (Auto) 0-5 (0-5) /hpf Urine RBC (Auto) 6-10 H (0-2) /hpf U Hyaline Cast (Auto) 11-20 H (0-2) /lpf U Epithel Cells (Auto) 0-2 (0-2) /hpf Urine Bacteria (Auto) None Seen (None Seen) Blood Parasites ID Blood Type A Positive Antibody Screen NEGATIVE Administered Medications Discontinued Medications Dextrose (Dextrose 50% 50 Ml Syringe) Confirm Administered Dose 50 ml IV .STK- MED ONE Stop: 12/26/24 18:54 Last Admin: 12/26/24 18:55 Dose: 50 ml Documented By: MMRosendo Hydrocortisone Sodium Succinate (Hydrocortisone Sod Succinate 100 Mg/2 Ml Vial) 200 mg IV NOW STA Stop: 12/26/24 19:09 Last Admin: 12/26/24 19:17 Dose: 200 mg Documented By: DARRICK Sodium Chloride (Nss) 1,000 mls @ 999 mls/hr IV .Q1H1M ONE Stop: 12/26/24 19:31 Last Infusion: 12/26/24 20:07 Dose: Infused Documented By: Admin: 12/26/24 18:46 Dose: 999 mls/hr Documented By: KINZA Sodium Chloride (Nss) 1,000 mls @ 999 mls/hr IV .Q1H1M ONE Stop: 12/26/24 20:02 Last Infusion: 12/26/24 20:11 Dose: Infused Documented By: Admin: 12/26/24 19:00 Dose: 999 mls/hr Documented By: DARRICK Piperacillin Sod/Tazobactam Sod (Zosyn) 4.5 gm in 100 mls @ 200 mls/hr IV NOW ONE; Protocol Stop: 12/26/24 19:31 Last Infusion: 12/26/24 20:07 Dose: Infused Documented By: Admin: 12/26/24 19:12 Dose: 200 mls/hr Documented By: DARRICK Vancomycin HCl 2,750 mg/ (Sodium Chloride) 555 mls @ 200 mls/hr IV NOW ONE Stop: 12/26/24 21:48 Last Admin: 12/26/24 20:09 Dose: 200 mls/hr Documented By: DARRICK Sodium Chloride (Nss) 500 mls @ 999 mls/hr IV .Q31M ONE Stop: 12/26/24 19:38 Last Infusion: 12/26/24 21:00 Dose: Infused Documented By: Admin: 12/26/24 20:08 Dose: 999 mls/hr Documented By: DARRICK Ioversol (Optiray 320 125ml) 119 ml IV ONCE ONE Stop: 12/26/24 19:44 Last Admin: 12/26/24 19:44 Dose: 119 ml Documented By: ARON Imaging Data Attestation: I personally reviewed and interpreted this imaging study as follows: My Impression: CT scan of the brain was obtained in the emergency department. My interpretation is no intracranial hemorrhage or mass effect, final report below. CT of the chest was obtained in the emergency department. My interpretation is large right upper lobe mass, final report below. CT of the abdomen and pelvis was obtained. My interpretation is as large right adrenal mass, final report below. Radiologist's Impression: Chest X-Ray 12/26/24 18:31 INDICATION: Cough. TECHNIQUE: Frontal radiograph of the chest. COMPARISON: Radiograph from 12/17/2024. FINDINGS/IMPRESSION: Right upper lobe mass again noted. Improved aeration of the right mid/lower lobes from prior exam. Small right pleural effusion. The left lung is relatively clear. Heart size is similar. No acute fracture. Electronically signed by Anil Sandoval 12-26-2024 7:06 PM Abdomen/Pelvis CT 12/26/24 18:37 Exam(s): CT ABDOMEN + PELVIS With Contrast IV Amt: 119ml EXAM: CT Abdomen and Pelvis With Intravenous Contrast CLINICAL HISTORY: Reason for exam: ams. TECHNIQUE: Axial computed tomography images of the abdomen and pelvis with intravenous contrast. CTDI is 19.26 mGy and DLP is 2545.23 mGy-cm. Automated exposure control was utilized for the study. A dose lowering technique was utilized adhering to the principles of ALARA. CONTRAST: Patient received 119ml of IV contrast COMPARISON: 11/28/2024 FINDINGS: ABDOMEN: Liver: Unremarkable. Gallbladder and bile ducts: Unremarkable. Pancreas: Unremarkable. Spleen: Unremarkable. Adrenals: The right adrenal gland is not visualized potentially replaced by the right upper quadrant mass. Kidneys and ureters: Unremarkable. No obstructing stones. No hydronephrosis. Stomach and bowel: Mucosal thickening in the stomach consistent with malignancy. PELVIS: Appendix: No findings to suggest acute appendicitis. Bladder: Unremarkable. Reproductive: Unremarkable as visualized. ABDOMEN and PELVIS: Intraperitoneal space: Unremarkable. No free air. No significant fluid collection. Bones/joints: No acute fracture. Soft tissues: Unremarkable. Vasculature: Unremarkable. Lymph nodes: Worsening retroperitoneal adenopathy and enlarged right upper quadrant mass measuring 12.3 x 6.7 cm today. IMPRESSION: 1. Mucosal thickening in the stomach consistent with malignancy. Appears new/progressed from the prior. 2. Worsening retroperitoneal adenopathy and enlarged right upper quadrant mass measuring 12.3 x 6.7 cm. Electronically signed by: David Lakhani MD 12/26/24 21:05 PM Chest CTA 12/26/24 18:37 Exam(s): CTA CHEST EXAM: CT Angiography Chest With Intravenous Contrast CLINICAL HISTORY: Reason for exam: PE. TECHNIQUE: Axial computed tomographic angiography images of the chest with intravenous contrast. CTDI is 19.26 mGy and DLP is 2545.23 mGy-cm. Automated exposure control was utilized for the study. A dose lowering technique was utilized adhering to the principles of ALARA. MIP reconstructed images were created and reviewed. COMPARISON: 12/17/2024 FINDINGS: Pulmonary arteries: No pulmonary embolism. Aorta: No acute findings. Normal caliber. No dissection. Lungs: Large mass filling much of the right upper lobe again visualized. Mucus plugging within the right lobe bronchi. Potential postobstructive pneumonia. Pleural space: No pleural effusion. No pneumothorax. Heart: Unremarkable. Bones/joints: No acute fracture. Soft tissues: Unremarkable. Lymph nodes: Unremarkable. IMPRESSION: 1. No pulmonary embolism. 2. Large mass filling much of the right upper lobe again visualized. Mucus plugging within the right lobe bronchi. Potential postobstructive pneumonia. Electronically signed by: David Lakhani MD 12/26/24 20:[address] 12/26/24 18:37 Exam(s): CT HEAD Without Contrast EXAM: CT Head Without Intravenous Contrast CLINICAL HISTORY: Reason for exam: ams. TECHNIQUE: Axial computed tomography images of the head/brain without intravenous contrast. CTDI is 37 mGy and DLP is 702 mGy-cm. Automated exposure control was utilized for the study. A dose lowering technique was utilized adhering to the principles of ALARA. COMPARISON: No relevant prior studies available. FINDINGS: Brain: Periventricular low-attenuation adjacent to the frontal horns and corpus callosum. Age indeterminate infarct could cause this appearance. Chronic microvascular ischemic changes and demyelinating also on the differential. No hemorrhage. Ventricles: Unremarkable. Bones/joints: Unremarkable. No fracture. Soft tissues: Unremarkable. Sinuses: No acute sinusitis. Mastoid air cells: Unremarkable as visualized. IMPRESSION: Periventricular low-attenuation adjacent to the frontal horns and corpus callosum. Age indeterminate infarct could cause this appearance. Chronic microvascular ischemic changes and demyelinating also on the differential. No hemorrhage. If there is concern for acute ischemia consider MRI. Electronically signed by: David Lakhani MD 12/26/24 20:47 PM Discharge Plan Visit Data Chief Complaint: Hypotension Stated Complaint: AMS ED Provider: Frank Matthews Discharge Problem: Sepsis, Anemia, Acute alteration in mental status, Acute hypotension, Atrial fibrillation with rapid ventricular response Patient Disposition: Admitted As Inpatient Discharge Instructions Interventions: ED Discharge Assessment Last Done: 12/26/24 20:39 Discharge Problem: Sepsis Qualifiers: Sepsis type: sepsis due to unspecified organism Sepsis acute organ dysfunction status: unspecified Qualified Code(s): A41.9 - Sepsis, unspecified organism Anemia Qualifiers: Anemia type: unspecified type Qualified Code(s): D64.9 - Anemia, unspecified
[2024-12-26] MEDS: PIPERACILLIN/TAZOBACTAM 4.5 GM/100 ML BAG IV ONE (19:12)
[2024-12-26] MEDS: HYDROCORTISONE SOD SUCCINATE 100 MG/2 ML VIAL IV STA (19:17)
[2024-12-26 19:36] LABS: Hematocrit (blood only) 19.3 % (42.0-52.0); Hemoglobin 6.1 g/dl (14.0-18.0); Mean Corpuscular Hemoglobin 24.8 pg (25.0-34.0); Mean Corpuscular Hgb Conc 31.6 g/dL (32.0-36.0); Mean Corpuscular Volume 78.5 fL (80.0-100.0); Nucleated RBC # (auto) 0.13 K/uL (0.00-0.12); Nucleated RBC % (auto) 0.5 %; Platelet Count 327 K/uL (130-400); RDW Coefficient of Variation 21.1 % (11.5-14.5); Red Blood Count 2.46 M/uL (4.70-6.10); White Blood Count 24.22 K/ul (4.8-10.8)
[2024-12-26 19:42] LABS: INR 1.9 (0.9-1.1); Partial Thromboplastin Ratio 1.3; Partial Thromboplastin Time 35 Seconds (21-31); Prothrombin Time 19.3 Seconds (9.0-12.0)
[2024-12-26 19:44] LABS: Albumin Level 2.2 gm/dl (3.4-5.0); Bilirubin Direct 0.8 mg/dl (0-0.2); Bilirubin,Total 1.6 mg/dl (0.2-1.0); Calcium 7.6 mg/dl (8.6-10.3); Magnesium 2.6 mg/dl (1.7-2.4); Potassium 5.3 mmol/L (3.5-5.1)
[2024-12-26] MEDS: OPTIRAY 320 125ml IV ONE (19:44)
[2024-12-26 19:46] LABS: Appearance Urine Cloudy (Clear); Bacteria Urine Automated None Seen (None Seen); Bilirubin Urine 1+ (Negative); Blood Urine Trace (Negative); Color Urine Dark Yellow; Epithelial Cell Urine Auto 0-2 /hpf (0-2); Glucose Urine UA Negative (Negative); Ketones Urine Trace (Negative); Leukocyte Esterase Urine Trace (Negative); Nitrite Urine Positive (Negative); Protein Urine 1+ (Negative); Specific Gravity Urine 1.022 (1.000-1.030); Urobilinogen Urine Negative (Negative); WBC Urine Automated 0-5 /hpf (0-5)
[2024-12-26 19:48] LABS: Anisocytosis Present; Basophils # (auto) 0.03 K/uL (0.00-0.20); Basophils % (auto) 0.1 %; Echinocytes 1+; Eosinophils # (auto) 0.02 K/uL (0.00-0.50); Eosinophils % (auto) 0.1 %; Immature Granulocytes # (auto) 0.86 K/uL (0.01-0.20); Immature Granulocytes % (auto) 3.6 %; Lymphocytes # (auto) 1.31 K/uL (1.20-3.40); Lymphocytes % (auto) 5.4 %; Monocytes # (auto) 1.31 K/uL (0.11-0.59); Monocytes % (auto) 5.4 %; Neutrophils # (auto) 20.69 K/uL (1.40-6.50); Neutrophils % (auto) 85.4 %; Target Cells 1+
[2024-12-26 19:50] LABS: BUN Creatinine Ratio 35.9 (10-20)
[2024-12-26 19:55] LABS: Troponin I High Sensitivity 22.5 pg/ml (0-20)
[2024-12-26] MEDS ORDERED: ONDANSETRON INJ 2 MG/ML 2 ML VIAL IV PRN ×2 (20:03)
[2024-12-26] MEDS ORDERED: MoRPHine SULFATE 2 MG/ML CARP IV PRN (20:03)
[2024-12-26] MEDS ORDERED: MAGNESIUM HYDROXIDE SUSP 30 ML UDC PO PRN (20:03)
[2024-12-26] MEDS ORDERED: ALUMINUM/MAGNESIUM SUSP 30 ML UDC PO PRN (20:03)
[2024-12-26] MEDS ORDERED: LORazepam 2 MG/1 ML VIAL IV PRN (20:03)
[2024-12-26] MEDS ORDERED: GLYCOPYRROLATE 0.2 MG/ML VIAL IV PRN (20:03)
[2024-12-26] MEDS: SODIUM CHLORIDE 0.9% 500 ML IV ONE (20:08)
[2024-12-26] MEDS: VANCOMYCIN HCL 2,750 MG in SODIUM CHLORIDE 0.9% 500 ML IV ONE (20:09)
--- NOTE | 2024-12-26 20:28 | History & Physical Report ---
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 Patient's mentation improved with IV hydration; he reiterated his wishes in the ED after fluid resuscitation; does not want aggressive measures and wants to be made comfortable. Code status was confirmed with medical record specialist at the [facility] over the phone as well. Patient admitted to the hospital under comfort care for symptom control. Stage IV lung adenocarcinoma Comfort care measure Continue on comfort care measures. Patient does not want any blood product, lab work. Continue on morphine 2 mg IV as needed Ativan 0.5 mg IV as needed Glycopyrrolate 0.5 mg IV Q4 as needed Palliative consulted for further recommendation Time spent evaluating patient, direct bedside care, chart review, placing orders, interpretation of diagnostic studies, discussion with consultants, patient, and family members, as well as other required patient management activities is 75 minutes Please note the above document was generated using voice recognition software. It may contain grammatical, syntax or spelling errors. 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 Was admitted from December 15 to December 20; was transition over to comfort care measures as per his wishes. He was discharged back to [facility] with plan to start hospice care at the facility. Discussion was done over the phone with RN, Dr. Mccurdy (medical record specialist at the [facility]) who confirmed that patient was under comfort care measures at the [facility] since the discharge; has been on oxycodone for pain control since the discharge. Patient's mentation improved with IV hydration; he reiterated his wishes in the ED after fluid resuscitation; does not want aggressive measures and wants to be made comfortable. He does not want any transfusion, antibiotics or any other aggressive interventions.He reports that he is comfortable at the present time. Patient admitted for comfort care measures. Allergies Allergy/AdvReac Type Severity Reaction Status Date / Time No Known Allergies Allergy Unverified 11/28/24 18:08 Home Medications Medication Instructions Recorded Confirmed Type enalapril maleate 20 mg tablet 20 mg PO DAILY 12/15/24 12/26/24 History labetalol 300 mg tablet 300 mg PO BID 12/15/24 12/26/24 History gabapentin 300 mg tablet 300 mg PO TID 12/26/24 12/26/24 History oxycodone 10 mg tablet,oral ONLY 10 mg PO Q4H PRN Pain (Scale Score 12/26/24 History (not feeding tubes) 4-6) prednisone 10 mg tablet 30 mg PO DAILY 12/26/24 12/26/24 History Past Med/Surg History Problem List Pleural effusion Metastatic malignant neoplasm to adrenal gland Mass of right lung Acute hypoxic respiratory failure Pneumonia Anemia (Acute) Cancer associated pain Lung cancer (Acute) Adenocarcinoma of left lung Hypertension, essential Hyperlipidemia Hyperlipidemia Anemia Superior vena cava compression syndrome (Acute) Mass of upper lobe of lung (Acute) Medical History Hypertension Social History Smoking Status: Former smoker Tobacco Type: Cigarettes Hx Alcohol Use: No Hx Substance Use: No Preferred Language: Emir[place] Communication Ability: Effective Ship Purser Required: No Beliefs That Will Affect Care: Cultural Current Living Situation: Other Current Living Situation Comment: [facility] Feels Safe at Home: Yes Assistive Devices: None Review of Systems Review of Systems: All systems reviewed & are unremarkable except as noted in Subjective Physical Exam Physical Exam: Constitutional: Awake, appears comfortable. Respiratory: Breath sounds absent in middle and lower lung field on right side. Cardiovascular: Irregular Chest: normal inspection of chest Abdomen: Soft, nontender. Musculoskeletal: no cyanosis or clubbing, extremities motor strength 5/5 Skin: no rashes, warm and dry normal turgor Neurologic: PERRL, EOMI, accommodation nl, no face palsy, no dysarthria CN's II- XI intact bilaterally and moves all extremities Results & Data Results & Data Vital Signs (Past 12 Hours) Vital Signs Pulse Resp BP Pulse Ox O2 Del Method O2 Flow Rate 12/26/24 19:52 114 H 24 94/61 L 100 Non-rebreather 15 12/26/24 19:15 112 H 20 94/69 L 100 Non-rebreather 15 12/26/24 19:07 113 H 22 106/63 100 Non-rebreather 15 12/26/24 19:07 100 Non-rebreather 15 12/26/24 18:58 112 H 12 91/62 L 94 Non-rebreather 15 12/26/24 18:50 119 H 10 L 75/56 L Non-rebreather 15 12/26/24 18:45 114 H 10 L 71/44 L Non-rebreather 15 12/26/24 18:41 110 H 8 L 53/44 L Non-rebreather 15 12/26/24 18:41 116 H 12/26/24 18:36 Non-rebreather 12/26/24 18:36 118 H 12 53/44 L 95 Non-rebreather 15 Code Status & VTE Plan VTE Prophylaxis Plan VTE Prophylaxis will be ordered: No
[2024-12-26 20:46] VITALS: PULSE 116
--- NOTE | 2024-12-26 20:48 | CT Scan Report ---
Exam(s): CT HEAD Without Contrast EXAM: CT Head Without Intravenous Contrast CLINICAL HISTORY: Reason for exam: ams. TECHNIQUE: Axial computed tomography images of the head/brain without intravenous contrast. CTDI is 37 mGy and DLP is 702 mGy-cm. Automated exposure control was utilized for the study. A dose lowering technique was utilized adhering to the principles of ALARA. COMPARISON: No relevant prior studies available. FINDINGS: Brain: Periventricular low-attenuation adjacent to the frontal horns and corpus callosum. Age indeterminate infarct could cause this appearance. Chronic microvascular ischemic changes and demyelinating also on the differential. No hemorrhage. Ventricles: Unremarkable. Bones/joints: Unremarkable. No fracture. Soft tissues: Unremarkable. Sinuses: No acute sinusitis. Mastoid air cells: Unremarkable as visualized. IMPRESSION: Periventricular low-attenuation adjacent to the frontal horns and corpus callosum. Age indeterminate infarct could cause this appearance. Chronic microvascular ischemic changes and demyelinating also on the differential. No hemorrhage. If there is concern for acute ischemia consider MRI. Electronically signed by: David Lakhani MD 12/26/24 20:47 PM
--- NOTE | 2024-12-26 20:50 | CT Scan Report ---
Exam(s): CTA CHEST EXAM: CT Angiography Chest With Intravenous Contrast CLINICAL HISTORY: Reason for exam: PE. TECHNIQUE: Axial computed tomographic angiography images of the chest with intravenous contrast. CTDI is 19.26 mGy and DLP is 2545.23 mGy-cm. Automated exposure control was utilized for the study. A dose lowering technique was utilized adhering to the principles of ALARA. MIP reconstructed images were created and reviewed. COMPARISON: 12/17/2024 FINDINGS: Pulmonary arteries: No pulmonary embolism. Aorta: No acute findings. Normal caliber. No dissection. Lungs: Large mass filling much of the right upper lobe again visualized. Mucus plugging within the right lobe bronchi. Potential postobstructive pneumonia. Pleural space: No pleural effusion. No pneumothorax. Heart: Unremarkable. Bones/joints: No acute fracture. Soft tissues: Unremarkable. Lymph nodes: Unremarkable. IMPRESSION: 1. No pulmonary embolism. 2. Large mass filling much of the right upper lobe again visualized. Mucus plugging within the right lobe bronchi. Potential postobstructive pneumonia. Electronically signed by: David Lakhani MD 12/26/24 20:50 PM
--- NOTE | 2024-12-26 21:06 | CT Scan Report ---
Exam(s): CT ABDOMEN + PELVIS With Contrast IV Amt: 119ml EXAM: CT Abdomen and Pelvis With Intravenous Contrast CLINICAL HISTORY: Reason for exam: ams. TECHNIQUE: Axial computed tomography images of the abdomen and pelvis with intravenous contrast. CTDI is 19.26 mGy and DLP is 2545.23 mGy-cm. Automated exposure control was utilized for the study. A dose lowering technique was utilized adhering to the principles of ALARA. CONTRAST: Patient received 119ml of IV contrast COMPARISON: 11/28/2024 FINDINGS: ABDOMEN: Liver: Unremarkable. Gallbladder and bile ducts: Unremarkable. Pancreas: Unremarkable. Spleen: Unremarkable. Adrenals: The right adrenal gland is not visualized potentially replaced by the right upper quadrant mass. Kidneys and ureters: Unremarkable. No obstructing stones. No hydronephrosis. Stomach and bowel: Mucosal thickening in the stomach consistent with malignancy. PELVIS: Appendix: No findings to suggest acute appendicitis. Bladder: Unremarkable. Reproductive: Unremarkable as visualized. ABDOMEN and PELVIS: Intraperitoneal space: Unremarkable. No free air. No significant fluid collection. Bones/joints: No acute fracture. Soft tissues: Unremarkable. Vasculature: Unremarkable. Lymph nodes: Worsening retroperitoneal adenopathy and enlarged right upper quadrant mass measuring 12.3 x 6.7 cm today. IMPRESSION: 1. Mucosal thickening in the stomach consistent with malignancy. Appears new/progressed from the prior. 2. Worsening retroperitoneal adenopathy and enlarged right upper quadrant mass measuring 12.3 x 6.7 cm. Electronically signed by: David Lakhani MD 12/26/24 21:05 PM
[2024-12-26 21:14] VITALS: BP 85/56; RESP 14; TEMP 96.8; O2SAT 97
--- NOTE | 2024-12-27 11:26 | Electrocardiogram Report ---
Test Reason : Blood Pressure : */* mmHG Vent. Rate : 121 BPM Atrial Rate : * BPM P-R Int : * ms QRS Dur : 76 ms QT Int : 286 ms P-R-T Axes : * 55 78 degrees QTcB Int : 406 ms Atrial fibrillation with rapid ventricular response ST elevation consider anterolateral injury or acute infarct ST elevation consider inferior injury or acute infarct ACUTE CO / STEMI Abnormal ECG When compared with ECG of 15-Dec-2024 15:32, Atrial fibrillation has replaced Sinus rhythm ST elevation now present in Inferior leads ST elevation now present in Anterolateral leads Confirmed by Frank Garrett ([id number]) on 12/27/2024 11:26:02 AM Referred By: [facility] Confirmed By: Frank Garrett
--- NOTE | 2024-12-27 12:13 | Discharge Summary ---
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 Patient's mentation improved with IV hydration; he reiterated his wishes in the ED after fluid resuscitation; does not want aggressive measures and wants to be made comfortable. Code status was confirmed [facility] as well. Patient admitted to the hospital under comfort care for symptom control. Stage IV lung adenocarcinoma Comfort care measure Pt appears to be comfortable w/o evidence of active stages of dying Pt with significant lab abnormalities including anemia, GET, concern for sepsis, lactic acidosis, persistent hypotension There is also still some altered mental status and some concern for possible CVA Pt is adamant he does not want further testing/treatment and only wishes to be treated with comfort measures only I feel this can be done at the [facility] Will discontinue all medications except for comfort medications, morphine, ativan and atropine Pt educated he does not need to come back to the hospital unless his comfort needs are not able to be met there Discussed with Andreas Mccurdy DO at [facility] Notes For Next Care Provider Please continue comfort measures status. If pt deteriorates and needs are unable to be met with oral medications it is recommended he return for consideration for inpatient hospice. Medication Changes From Visit STOP all medications and continue with comfort care only medications including: Morphine concentrate 10mg/0.5ml - give 0.25ml every 4 hours as needed for SOB/Hypoxia or Pain. Ativan SL 0.5mg every 4 hours as needed for anxiety or restlessness. Atropine sulfate 1% gtts, 2 gtts SL q1hr prn for secretions Admission HPI Per Admitting Provider History obtained from interview with the patient, [facility] from [facility], chart review Patient was recently diagnosed of stage IV lung adenocarcinoma with SVC syndrome. Was admitted from December 15 to December 20; was transition over to comfort care measures as per his wishes. [facility] with [facility] to [facility] hosp[facility] care at the facility. Discussion was done over the phone with RN, Dr. Mccurdy (medical [facility] at the [facility]) who confirmed that patient was under [facility] since [facility] discharge; has been on oxycodone for pain control since the discharge. Patient's mentation improved with IV hydration; he reiterated his wishes in the ED after fluid resuscitation; does not want aggressive measures and wants to be made comfortable. He does not want any transfusion, antibiotics or any other aggressive interventions.He reports that he is comfortable at the present time. Patient admitted for comfort care measures. Admission Exam Per Admitting Provider Constitutional: Awake, appears comfortable. Respiratory: Breath sounds absent in middle and lower lung field on right side. Cardiovascular: Irregular Chest: normal inspection of chest Abdomen: Soft, nontender. Musculoskeletal: no cyanosis or clubbing, extremities motor strength 5/5 Skin: no rashes, warm and dry normal turgor Neurologic: PERRL, EOMI, accommodation nl, no face palsy, no dysarthria CN's II- XI intact bilaterally and moves all extremities Discharge Exam Gen: nontoxic, critically ill, A and O x2 HEENT: Normocephalic, atraumatic, conjunctivae moist, sclerae anicteric, mucous membranes dry Lung: Clear to Auscultation bilaterally, no wheezes/rales/rhonchi Heart: Regular rate, regular rhythm, no murmurs, rubs, or gallops Abdomen: Soft, NT, ND +BS x 4 Extremities: No edema, + femoral line Skin: Warm, no rash, negative turgor. : +ortez cath with yellow urine Updated Medication List Medication Instructions Recorded Confirmed Type atropine 1 % eye drops 2 drp sublingual Q1H PRN 12/27/24 Rx secretions #15 mL lorazepam 0.5 mg tablet (Ativan) 0.5 mg sublingual Q6H PRN 12/27/24 Rx anxiety/restless #30 tabs morphine concentrate 10 mg/0.5 mL 5 mg (0.25 mL) PO Q4H PRN pain/SOB 12/27/24 Rx oral syringe (FOR ORAL USE ONLY) #50 ea Hospital Stay Data Consultations 12/26/24 19:53 ED Decision to Admit Stat 12/26/24 20:05 Consult Palliative Care Routine Diagnostic Imagining Performed Chest X-Ray 12/26/24 18:31 INDICATION: Cough. TECHNIQUE: Frontal radiograph of the chest. COMPARISON: Radiograph from 12/17/2024. FINDINGS/IMPRESSION: Right upper lobe mass again noted. Improved aeration of the right mid/lower lobes from prior exam. Small right pleural effusion. The left lung is relatively clear. Heart size is similar. No acute fracture. Electronically signed by Anil Sandoval 12-26-2024 7:06 PM Abdomen/Pelvis CT 12/26/24 18:37 Exam(s): CT ABDOMEN + PELVIS With Contrast IV Amt: 119ml EXAM: CT Abdomen and Pelvis With Intravenous Contrast CLINICAL HISTORY: Reason for exam: ams. TECHNIQUE: Axial computed tomography images of the abdomen and pelvis with intravenous contrast. CTDI is 19.26 mGy and DLP is 2545.23 mGy-cm. Automated exposure control was utilized for the study. A dose lowering technique was utilized adhering to the principles of ALARA. CONTRAST: Patient received 119ml of IV contrast COMPARISON: 11/28/2024 FINDINGS: ABDOMEN: Liver: Unremarkable. Gallbladder and bile ducts: Unremarkable. Pancreas: Unremarkable. Spleen: Unremarkable. Adrenals: The right adrenal gland is not visualized potentially replaced by the right upper quadrant mass. Kidneys and ureters: Unremarkable. No obstructing stones. No hydronephrosis. Stomach and bowel: Mucosal thickening in the stomach consistent with malignancy. PELVIS: Appendix: No findings to suggest acute appendicitis. Bladder: Unremarkable. Reproductive: Unremarkable as visualized. ABDOMEN and PELVIS: Intraperitoneal space: Unremarkable. No free air. No significant fluid collection. Bones/joints: No acute fracture. Soft tissues: Unremarkable. Vasculature: Unremarkable. Lymph nodes: Worsening retroperitoneal adenopathy and enlarged right upper quadrant mass measuring 12.3 x 6.7 cm today. IMPRESSION: 1. Mucosal thickening in the stomach consistent with malignancy. Appears new/progressed from the prior. 2. Worsening retroperitoneal adenopathy and enlarged right upper quadrant mass measuring 12.3 x 6.7 cm. Electronically signed by: David Lakhani MD 12/26/24 21:05 PM Chest CTA 12/26/24 18:37 Exam(s): CTA CHEST EXAM: CT Angiography Chest With Intravenous Contrast CLINICAL HISTORY: Reason for exam: PE. TECHNIQUE: Axial computed tomographic angiography images of the chest with intravenous contrast. CTDI is 19.26 mGy and DLP is 2545.23 mGy-cm. Automated exposure control was utilized for the study. A dose lowering technique was utilized adhering to the principles of ALARA. MIP reconstructed images were created and reviewed. COMPARISON: 12/17/2024 FINDINGS: Pulmonary arteries: No pulmonary embolism. Aorta: No acute findings. Normal caliber. No dissection. Lungs: Large mass filling much of the right upper lobe again visualized. Mucus plugging within the right lobe bronchi. Potential postobstructive pneumonia. Pleural space: No pleural effusion. No pneumothorax. Heart: Unremarkable. Bones/joints: No acute fracture. Soft tissues: Unremarkable. Lymph nodes: Unremarkable. IMPRESSION: 1. No pulmonary embolism. 2. Large mass filling much of the right upper lobe again visualized. Mucus plugging within the right lobe bronchi. Potential postobstructive pneumonia. Electronically signed by: David Lakhani MD 12/26/24 20:[address] 12/26/24 18:37 Exam(s): CT HEAD Without Contrast EXAM: CT Head Without Intravenous Contrast CLINICAL HISTORY: Reason for exam: ams. TECHNIQUE: Axial computed tomography images of the head/brain without intravenous contrast. CTDI is 37 mGy and DLP is 702 mGy-cm. Automated exposure control was utilized for the study. A dose lowering technique was utilized adhering to the principles of ALARA. COMPARISON: No relevant prior studies available. FINDINGS: Brain: Periventricular low-attenuation adjacent to the frontal horns and corpus callosum. Age indeterminate infarct could cause this appearance. Chronic microvascular ischemic changes and demyelinating also on the differential. No hemorrhage. Ventricles: Unremarkable. Bones/joints: Unremarkable. No fracture. Soft tissues: Unremarkable. Sinuses: No acute sinusitis. Mastoid air cells: Unremarkable as visualized. IMPRESSION: Periventricular low-attenuation adjacent to the frontal horns and corpus callosum. Age indeterminate infarct could cause this appearance. Chronic microvascular ischemic changes and demyelinating also on the differential. No hemorrhage. If there is concern for acute ischemia consider MRI. Electronically signed by: David Lakhani MD 12/26/24 20:47 PM Pending Results Patient Have Any Pending Studies at Discharge: Yes (blood and urine cultures) Discharge Instructions Given to Patient (Per Discharging Provider) MEDICATION CHANGES: STOP all medications and continue with comfort care only medications including: Morphine concentrate 10mg/0.5ml - give 0.25ml every 4 hours as needed for SOB/Hypoxia or Pain. Ativan SL 0.5mg every 4 hours as needed for anxiety or restlessness. Atropine sulfate 1% gtts, 2 gtts SL q1hr prn for secretions RECOMMENDATIONS FOR FOLLOW-UP: Patient with advanced stage adenocarcinoma presented to hospital secondary to confusion and lethargy. You were found to have hypotension, anemia, acute kidney injury and concern for sepsis. Due to the advanced nature of your disease you opted for comfort measures only and you did not want any aggressive measures except medications to make you comfortable. This can be done at the [facility] and you will be discharged back there today. You do not need to come back to the hospital unless the [facility] is unable to control your symptoms and keep you comfortable. Medications are being recommended at discharge that will help keep you comfortable. Continue oxygen supplementation to keep you comfortable. Recommend O2 saturations >88%. It has been a pleasure taking care of you. Please take care of yourself. If you have any questions regarding your recent hospitalization please contact [facility] and request Savannah Bazanist @ [phone]. Total Time Total Time Spent Total Time Spent (In Minutes): 35 minutes Supervising Physician Co-Signing Physician Notes Attending Addendum: Case reviewed with the advanced practitioner. I have reviewed the advanced practitioner's documentation on the date of service referenced in note, and I agree with, and take responsibility for the plan of care. please refer to her notes for full details patient seen and examined, records reviewed by myself as well VS noted and reviewed all labs, imaging noted and reviewed ASSESSMENT AND PLAN diagnoses and plan of care as per advanced practitioner's notes I spent a total of 25 minutes coordinating, documenting, and providing care for this patient, excluding time spent in the performance of separately billed services or time spent by another provider/QHP. Farshad Shields MD
== END 2024-12-27 14:26 | DRG 871 ==
LOC: ED 18:30 → 3N 20:03